=== PATIENT | female | born 1975 | race Caucasian/White ===

== ENCOUNTER 2017-08-12 11:43 | Inpatient (IN) | payer OTHER ==
[2017-08-12] MEDS ORDERED: TYLENOL PO PRN (12:15)
[2017-08-12 12:48] VITALS: BMI 15.1
[2017-08-12 13:07] LABS: BASOPHILS # (AUTO) 0.1 K/uL (0-0.2); BASOPHILS % (AUTO) 0.6 % (0.0-3.0); EOSINOPHILS # (AUTO) 0.1 K/ul (0.0-0.7); EOSINOPHILS % (AUTO) 0.4 % (0.0-7.0); HEMATOCRIT 36.9 % (37.0-47.0); HEMOGLOBIN 13.1 g/dl (12.0-16.0); IMMATURE GRANULOCYTE % (AUTO) 0.5 % (0.0-5.0); LYMPHOCYTES % (AUTO) 15.9 (10.0-50.0); MEAN CORPUSCULAR HEMOGLOBIN 30.7 pg (27.0-31.0); MEAN CORPUSCULAR HGB CONC 35.5 (31.8-35.4); MEAN CORPUSCULAR VOLUME 86.4 fl (81.0-99.0); MONOCYTES # (AUTO) 1.3 K/uL (0.4-2.0); MONOCYTES % (AUTO) 10.5 (0-10); NEUTROPHILS # (AUTO) 9.1 K/ul (2.0-6.9); NEUTROPHILS % (AUTO) 72.1; PLATELET COUNT 179 10^3/uL (140-440); RED BLOOD COUNT 4.27 10^6/ul (4.20-5.40); WHITE BLOOD COUNT 12.59 K/ul (4.6-10.2)
[2017-08-12 13:29] LABS: ALBUMIN 3.5 g/dL (3.4-5.0); ALBUMIN/GLOBULIN RATIO 0.85; ANION GAP 15.8; BILIRUBIN,TOTAL 0.32 mg/dL (0.00-1.20); BUN/CREATININE RATIO 16.98; CALCIUM 9.5 mg/dL (8.2-10.2); CREATININE 0.53 mg/dL (0.60-1.30); POTASSIUM 3.8 mmol/L (3.5-5.10); TOTAL PROTEIN 7.6 g/dL (6.4-8.2)
[2017-08-12] MEDS: SODIUM CHLORIDE 1,000 ML IV SCH (15:13)
[2017-08-12] MEDS: ROCEPHIN 1 GM in SODIUM CHLORIDE 50 ML IV SCH (15:14)
--- NOTE | 2017-08-12 15:14 | CT ---
EXAM: CT chest without contrast HISTORY: Coughing COMPARISON: 11/10/2014 TECHNIQUE: CT chest performed without intravenous contrast. coronal and sagittal reformatted images were obtained. FINDINGS: There is a left central venous catheter terminates in superior vena cava. Thoracic inlet unremarkable. Heart normal in size. No pericardial effusion. Aorta normal in caliber. Surgical cl ips in the epigastric region. Visualized portion upper abdomen demonstrates no acute abnormality. E valuation for lymphadenopathy limited without contrast. No lymphadenopathy identified. No acute abno rmalities of the bones. Rightward curvature of the spine. Central airway patent. Bilateral ground- glass infiltrates and left basilar consolidation. Small chronic high attenuation in the left pleural region that appears unchanged and likely represents pleural thickening with or without effusion. IMPRESSION: 1. Bilateral ground-glass infiltrates and left lower lobe consolidation, most consistent with pneumo laura. 2. Probable small left pleural thickening with or without effusion, unchanged.
[2017-08-12] MEDS: DIVALPROEX SODIUM 375 MG PO SCH (20:33)
[2017-08-12] MEDS: CARBAMAZEPINE 300 MG PO SCH ×22 (20:34)
[2017-08-13] MEDS: SODIUM CHLORIDE 1,000 ML IV SCH (03:58)
[2017-08-13] MEDS ORDERED: DECADRON 4 MG/ML SDV IM STA (08:27)
[2017-08-13] MEDS: DIVALPROEX SODIUM 250 MG PO SCH (09:33)
[2017-08-13] MEDS: CARBAMAZEPINE 300 MG PO SCH ×44 (09:33→20:17)
[2017-08-13] MEDS: CITALOPRAM HYDROBROMIDE 5 MG PO SCH ×22 (09:34)
[2017-08-13] MEDS: LOVENOX SUBCUT SCH (09:35)
[2017-08-13] MEDS: MINERAL OIL PO SCH (09:35)
[2017-08-13] MEDS: DUONEB NEB SCH ×3 (10:10→20:45)
[2017-08-13] MEDS: ROCEPHIN 1 GM in SODIUM CHLORIDE 50 ML IV SCH (13:51)
--- NOTE | 2017-08-13 13:52 | ED.PDOC ---
Procedures - IV/Art Line Insertion Location: right wrist Invasive Line/IV Catheter Gauge: 22 Number of Attempts: 1 Blood Return Positive: Yes Invasive Line/IV Flushes Without Difficulty: Yes Conscious Sedation - Pre-op Assessment Weight: 70 lb Surgical History: SHUNTS,HERNIA,CLUB FOOT,TENDON,HIP - Medical History Past Medical History: Seizures, Other Other History: CEREBRAL PALSY
[2017-08-13] MEDS: DIVALPROEX SODIUM 375 MG PO SCH (20:17)
[2017-08-14] MEDS: SODIUM CHLORIDE 1,000 ML IV SCH ×2 (01:19→14:23)
[2017-08-14] MEDS: DUONEB NEB SCH ×2 (05:19→10:14)
[2017-08-14] MEDS: CITALOPRAM HYDROBROMIDE 5 MG PO SCH ×22 (08:49)
[2017-08-14] MEDS: DIVALPROEX SODIUM 250 MG PO SCH (08:49)
[2017-08-14] MEDS: CARBAMAZEPINE 300 MG PO SCH ×22 (08:49)
[2017-08-14] MEDS: MINERAL OIL PO SCH (08:51)
[2017-08-14] MEDS: LOVENOX SUBCUT SCH (08:51)
[2017-08-14] MEDS: ROCEPHIN 1 GM in SODIUM CHLORIDE 50 ML IV SCH (08:53)
[2017-08-14 10:51] VITALS: BP 116/79; TEMP 98.3
--- NOTE | 2017-09-03 15:48 | PN ---
DATE OF SERVICE: 08/13/17 SUBJECTIVE: The patient was admitted with upper respiratory infection. Ct scan showed the bilateral pneumonia. The patient is feeling some better with no coughing and no fever or chills. REVIEW OF SYSTEMS: CONSTITUTIONAL: No fever, no chills. HEENT: Normal. ENDOCRINE: No weight gain, no weight loss. CVS: No angina symptoms. No CHF symptoms. No palpitations. No atypical chest pain for CAD. No shortness of breath. No PND, no orthopnea. RESPIRATORY: No cough, no hemoptysis. GI: No nausea, no vomiting. No abdominal pain. : No hematuria. No polyuria. MUSCULOSKELETAL:. No joint swelling. PSYCHIATRIC: Not anxious. No depression. No suicidal thoughts. No homicidal thoughts. SKIN: Intact. No rash. PHYSICAL EXAMINATION: V/S: Blood pressure 105/71, respiratory rate 20, heart rate 105, temperature 98.8, saturation 96. HEENT: Normocephalic, atraumatic. Mucosa dry. Pallor positive. No icterus. NECK: Supple. No JVD, no carotid bruit. No lymphadenopathy. LUNGS: Decreased, clear. No rales or rhonchi. HEART: S1, S2 normal. No S3. No murmur, gallop or regurgitation. ABDOMEN: Soft, nontender. Bowel sounds active. No rigidity. No rebound or guarding. No CVA tenderness. EXTREMITIES: No clubbing, cyanosis or pedal edema. MUSCULOSKELETAL: No joint swelling. Contractures in lower and upper extremities. NEUROLOGIC: Awake, alert, oriented times three. No focal deficit. LYMPHATIC: No lymph nodes palpable. SKIN: Intact. LABS: White count 12.5, hemoglobin 13.1, hematocrit 36.9, platelet count 179, sodium 136, potassium 3.8, chloride 100, bicarb 24, BUN 9, creatinine 0.53. ASSESSMENT: 1. BILATERAL COMMUNITY ACQUIRED PNEUMONIA 2. DEHYDRATION 3. HISTORY OF CEREBRAL PALSY 4. MULTIPLE LIMB CONTRACTURES PLAN: 1. Continue the IV fluids and Rocephin. 2. Breathing treatments. 3. 0.5 cc Decadron. TIME SPENT: More than 35 minutes today. MTDD
--- NOTE | 2017-09-05 11:53 | DS ---
DATE OF SERVICE: 08/14/17 FINAL DIAGNOSIS: 1. Dehydration 2. Community acquired pneumonia, bilateral 3. Cerebral palsy 4. Multiple contracture 5. History of seizure disorder which is stable 6. Cachexia 7. Chronic bed ridden patient DISCHARGE INSTRUCTIONS: Discharge the patient home. Continue home medications. MEDICATIONS AT DISCHARGE: Carbatrol Celexa Depakote NEW PRESCRIPTIONS: Augmentin 250mg/5ml Q 8 hours for 5 days. DIET INSTRUCTIONS: Soft and cardiac healthy diet ACTIVITY: Plenty of rest Increase lots of fluids SMOKING: Never smoker DISEASE SPECIFIC EDUCATION: Pneumonia and need for the pneumonia vaccination been discussed and verbalized understanding. Spirometry at the home suggested which can help the patient a lot HOSPITAL COURSE: Tarah Nazario who is a 42 year old female with history of cerebral palsy came to the office with cough, congestion and sore throat for 3-4 days which started on the Saturday. The patient has the tendency of getting pneumonia easily because of the patient's restrictive lung disease and body position. At that time the patient was found to be dehydrated and that time she was admitted to the hospital. WBC 12,000 with left shift. Creatinine 0.53, glucose 130, Valproic acid was negative. CT chest showed the bilateral pneumonia. The patient was given Rocephin, breathing treatments and steroids which did improve the patient a lot. By next two days the patient was active, alert and more verbal and became her normal self. At that time planning for the discharge was made and the patient's family and the patient was comfortable with going home and being discharged on the oral antibiotics Augmentin TIME SPENT: MORE THAN 55 MINUTES MTDD
== END 2017-08-14 14:10 | disposition home or self-care (01) | DRG 194 ==
LOC: MEDSURG B 11:43
PROVIDERS: ADMIT Emergency Medicine; ATTEND Emergency Medicine
DX: J18.9 Pneumonia, unspecified organism (principal); R64 Cachexia; J06.9 Acute upper respiratory infection, unspecified; G80.9 Cerebral palsy, unspecified; G40.909 Epilepsy, unspecified, not intractable, without status epilepticus; E86.0 Dehydration; Z74.01 Bed confinement status; Z79.899 Other long term (current) drug therapy
CPT/HCPCS: 36415; 80053; 80164; 85025; 94640; 97802

== ENCOUNTER 2017-08-12 12:29 | Outpatient (CLI) ==
[2016-02-03 18:10] VITALS: BMI 16.0
[2017-08-12 12:33] LABS: FLU INTERNAL QC INTERNAL QC VALID; RAPID FLU A NEGATIVE (NEGATIVE); RAPID FLU B NEGATIVE (NEGATIVE)
== END 2017-08-12 12:30 | disposition home or self-care (01) ==
LOC: LAB 12:29
PROVIDERS: ATTEND Emergency Medicine
DX: J06.9 Acute upper respiratory infection, unspecified (principal)
CPT/HCPCS: 87651; 87804; 87880

== ENCOUNTER 2017-08-21 10:38 | Inpatient (IN) ==
[2017-08-21 11:07] VITALS: BMI 15.2
--- NOTE | 2017-08-21 13:21 | CT ---
EXAM: CT head without contrast HISTORY: Headache COMPARISON: CT head 05/23/2013 and numerous priors TECHNIQUE: Serial axial images of the brain were obtained from the skull base to the vertex without IV contrast. FINDINGS: There is persistent elongated AP diameter of the skull. A left-sided [employer] shunt is unchange d with the tip in the right lateral ventricle. Encephalomalacia of the occipital and temporal lobes are present. There is no intracranial hemorrhage identified. There is no significant change in comp arison to previous study. The of the occipital and temporal lobes are unchanged. Mild low attenuati on in the periventricular white matter is present.No midline shift or mass is identified. The paran denise sinuses and mastoid air cells are clear. The osseous calvarium is intact. IMPRESSION: 1. No acute intracranial abnormality or hemorrhage. There is no significant change from prior. If further evaluation is indicated, MRI may be obtained. 2. Unchanged bilateral posterior encephalomalacia with unchanged indwelling ventricular peritoneal s [place]. The
--- NOTE | 2017-08-21 13:30 | CT ---
EXAM: CT ABDOMEN AND PELVIS HISTORY: Abdominal pain, gastroenteritis TECHNIQUE: CT abdomen and pelvis without intravenous contrast. Images were reconstructed using 5 mm section thickness. Reformations were prepared. COMPARISON: 11/10/2014 FINDINGS: Diagnostic limitations exist without including contrast enhanced images. No focal hepatic or splenic lesions identified. Gallbladder and pancreas appear normal. No adrenal mass is seen. Kidneys and visualized ureters appear normal. Normal abdominal aorta. Postop changes at the gastroesophageal junction are identified. There is a small hiatal hernia which is unchanged. Gastric fluid is seen within the hiatal hernia. There is moderate distension of the stomach with air and semisolid fluid. Proximal bowel is distended with fluid. The distal small laina l has relatively normal caliber although was also fluid filled. There are scattered air-fluid levels within the small bowel. Suture line near the cecum probably indicating previous appendectomy. The colon has normal caliber with no excessive fecal retention. No uterus is identified. Urinary bladde r is decompressed. There is no ascites. No ventral abdominal wall hernia. The bones are demineralized. Postop changes of the upper left fem ur. 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 Lung bases reveal consolidations, especially post eriorly. No pneumoperitoneum seen. IMPRESSION: Postop changes gastroesophageal junction with residual hiatal hernia. There is moderate distension of the stomach with fluid and air. Gastric fluid is seen within the hiatal hernia. Smal l bowel is distended with fluid at its proximal aspect. Colon caliber is normal. Consider at least partial small-bowel obstruction. Consolidations in the lung bases possibly from aspiration pneumonia.
[2017-08-21 16:01] LABS: BASOPHILS % (AUTO) 0.4 % (0.0-3.0); EOSINOPHILS % (AUTO) 0.1 % (0.0-7.0); HEMATOCRIT 40.6 % (37.0-47.0); HEMOGLOBIN 14.3 g/dl (12.0-16.0); IMMATURE GRANULOCYTE % (AUTO) 0.9 % (0.0-5.0); LYMPHOCYTES # (AUTO) 0.8 K/uL (0.60-3.4); LYMPHOCYTES % (AUTO) 8.1 (10.0-50.0); MEAN CORPUSCULAR HEMOGLOBIN 30.6 pg (27.0-31.0); MEAN CORPUSCULAR HGB CONC 35.2 (31.8-35.4); MEAN CORPUSCULAR VOLUME 86.9 fl (81.0-99.0); MONOCYTES # (AUTO) 1.1 K/uL (0.4-2.0); MONOCYTES % (AUTO) 10.7 (0-10); NEUTROPHILS # (AUTO) 8.1 K/ul (2.0-6.9); NEUTROPHILS % (AUTO) 79.8; PLATELET COUNT 218 10^3/uL (140-440); RED BLOOD COUNT 4.67 10^6/ul (4.20-5.40); WHITE BLOOD COUNT 10.17 K/ul (4.6-10.2)
[2017-08-21] MEDS: SODIUM CHLORIDE 1,000 ML IV SCH (16:11)
[2017-08-21 16:20] LABS: ALBUMIN 3.3 g/dL (3.4-5.0); ALBUMIN/GLOBULIN RATIO 0.79; ANION GAP 16.7; BILIRUBIN,TOTAL 0.24 mg/dL (0.00-1.20); BUN/CREATININE RATIO 29.09; CALCIUM 9.1 mg/dL (8.2-10.2); CREATININE 0.55 mg/dL (0.60-1.30); POTASSIUM 3.7 mmol/L (3.5-5.10); TOTAL PROTEIN 7.5 g/dL (6.4-8.2)
[2017-08-21 16:42] LABS: CREATINE KINASE 30 U/L
[2017-08-21] MEDS ORDERED: ROCEPHIN 1 GM in SODIUM CHLORIDE 50 ML IV SCH (20:30)
[2017-08-21] MEDS ORDERED: CARBAMAZEPINE 300 MG PO SCH ×22 (21:00)
[2017-08-21] MEDS ORDERED: ROCEPHIN ONE (21:36)
[2017-08-21] MEDS ORDERED: FLAGYL 500 MG/100 ML 100 ML IV ONE (21:36)
[2017-08-21] MEDS: DIVALPROEX SODIUM 375 MG PO SCH (21:49)
[2017-08-21] MEDS: FLAGYL 500 MG/100 ML 500 MG in PREMIX 100 ML NS 1 BAG IV SCH (23:20)
[2017-08-22] MEDS ORDERED: DUONEB NEB ONE ×2 (01:37→05:10)
[2017-08-22] MEDS: DUONEB NEB SCH ×4 (01:37→16:38)
[2017-08-22] MEDS ORDERED: FLAGYL 500 MG/100 ML 100 ML IV ONE (03:55)
[2017-08-22] MEDS: FLAGYL 500 MG/100 ML 500 MG in PREMIX 100 ML NS 1 BAG IV SCH ×2 (05:05→13:08)
[2017-08-22] MEDS: SODIUM CHLORIDE 1,000 ML IV SCH ×2 (06:23→22:09)
[2017-08-22] MEDS ORDERED: CARBAMAZEPINE 300 MG PO SCH ×22 (09:00)
[2017-08-22] MEDS: MINERAL OIL PO SCH (09:00)
[2017-08-22] MEDS: CITALOPRAM HYDROBROMIDE 5 MG PO SCH ×22 (09:41)
[2017-08-22] MEDS: DIVALPROEX SODIUM 250 MG PO SCH (09:42)
[2017-08-22] MEDS: DIVALPROEX SODIUM 375 MG PO SCH (20:00)
[2017-08-22] MEDS ORDERED: FLAGYL ONE (20:42)
[2017-08-22] MEDS: FLAGYL PO SCH (20:49)
[2017-08-22] MEDS ORDERED: ROCEPHIN 1 GM in SODIUM CHLORIDE 50 ML IV SCH (21:00)
[2017-08-22] MEDS ORDERED: TEGRETOL PO SCH (21:00)
[2017-08-23] MEDS: DUONEB NEB SCH ×5 (00:50→22:29)
[2017-08-23] MEDS ORDERED: DUONEB NEB ONE (00:50)
[2017-08-23] MEDS: FLAGYL PO SCH (04:47)
[2017-08-23 06:41] LABS: BASOPHILS # (AUTO) 0.1 K/uL (0-0.2); BASOPHILS % (AUTO) 0.8 % (0.0-3.0); EOSINOPHILS # (AUTO) 0.1 K/ul (0.0-0.7); EOSINOPHILS % (AUTO) 0.8 % (0.0-7.0); HEMATOCRIT 32.1 % (37.0-47.0); HEMOGLOBIN 11.3 g/dl (12.0-16.0); IMMATURE GRANULOCYTE % (AUTO) 1.5 % (0.0-5.0); LYMPHOCYTES # (AUTO) 2.2 K/uL (0.60-3.4); LYMPHOCYTES % (AUTO) 32.8 (10.0-50.0); MEAN CORPUSCULAR HEMOGLOBIN 30.3 pg (27.0-31.0); MEAN CORPUSCULAR HGB CONC 35.2 (31.8-35.4); MEAN CORPUSCULAR VOLUME 86.1 fl (81.0-99.0); MONOCYTES # (AUTO) 0.9 K/uL (0.4-2.0); NEUTROPHILS # (AUTO) 3.3 K/ul (2.0-6.9); NEUTROPHILS % (AUTO) 50.1; RED BLOOD COUNT 3.73 10^6/ul (4.20-5.40); WHITE BLOOD COUNT 6.55 K/ul (4.6-10.2)
[2017-08-23 07:00] LABS: PLATELET COUNT 129 10^3/uL (140-440)
[2017-08-23 07:02] LABS: ALBUMIN 2.8 g/dL (3.4-5.0); ALBUMIN/GLOBULIN RATIO 0.88; ANION GAP 14.8; BILIRUBIN,TOTAL 0.16 mg/dL (0.00-1.20); BUN/CREATININE RATIO 8.51; CALCIUM 8.6 mg/dL (8.2-10.2); CREATININE 0.47 mg/dL (0.60-1.30); POTASSIUM 3.8 mmol/L (3.5-5.10)
--- NOTE | 2017-08-23 09:39 | ED.PDOC ---
Procedures - IV/Art Line Insertion Location: rt lower leg Type of Line: Peripheral IV Invasive Line/IV Catheter Gauge: 24 Number of Attempts: 1 Blood Return Positive: Yes Invasive Line/IV Flushes Without Difficulty: Yes Conscious Sedation - Pre-op Assessment Weight: 70 lb 3.2 oz Surgical History: SHUNTS,HERNIA,CLUB FOOT,TENDON,HIP - Medical History Past Medical History: Seizures, Other Other History: CEREBRAL PALSY
[2017-08-23] MEDS: MINERAL OIL PO SCH (09:56)
[2017-08-23] MEDS: CARBAMAZEPINE 300 MG PO SCH ×44 (09:57→20:38)
[2017-08-23] MEDS: DIVALPROEX SODIUM 250 MG PO SCH (09:57)
[2017-08-23] MEDS: CITALOPRAM HYDROBROMIDE 5 MG PO SCH ×22 (09:57)
[2017-08-23] MEDS: SODIUM CHLORIDE 1,000 ML IV SCH ×2 (10:55→17:15)
[2017-08-23] MEDS: ROCEPHIN 1 GM in SODIUM CHLORIDE 50 ML IV SCH (10:57)
[2017-08-23] MEDS: PROTONIX IV IVP SCH ×2 (13:23→14:04)
[2017-08-23] MEDS: FLAGYL 500 MG/100 ML 500 MG in PREMIX 100 ML NS 1 BAG IV SCH ×2 (13:23→20:37)
[2017-08-23] MEDS ORDERED: CARAFATE PO SCH (17:00)
[2017-08-23] MEDS: ZANTAC SYRUP PO SCH (17:07)
[2017-08-23] MEDS: DIVALPROEX SODIUM 375 MG PO SCH (20:38)
[2017-08-24] MEDS: FLAGYL 500 MG/100 ML 500 MG in PREMIX 100 ML NS 1 BAG IV SCH ×3 (04:33→21:34)
[2017-08-24] MEDS: DUONEB NEB SCH ×4 (05:30→22:10)
[2017-08-24] MEDS: ZANTAC SYRUP PO SCH ×2 (05:31→16:50)
[2017-08-24] MEDS: SODIUM CHLORIDE 1,000 ML IV SCH (09:02)
[2017-08-24] MEDS: MINERAL OIL PO SCH (09:02)
[2017-08-24] MEDS: CITALOPRAM HYDROBROMIDE 5 MG PO SCH ×22 (09:06)
[2017-08-24] MEDS: CARBAMAZEPINE 300 MG PO SCH ×44 (09:06→21:39)
[2017-08-24] MEDS: DIVALPROEX SODIUM 250 MG PO SCH (09:07)
[2017-08-24] MEDS: ROCEPHIN 1 GM in SODIUM CHLORIDE 50 ML IV SCH (10:09)
[2017-08-24] MEDS: DIVALPROEX SODIUM 375 MG PO SCH (21:38)
[2017-08-25] MEDS: SODIUM CHLORIDE 1,000 ML IV SCH ×2 (02:20→17:44)
[2017-08-25 05:21] LABS: BASOPHILS % (AUTO) 0.7 % (0.0-3.0); EOSINOPHILS # (AUTO) 0.1 K/ul (0.0-0.7); EOSINOPHILS % (AUTO) 1.6 % (0.0-7.0); HEMATOCRIT 31.9 % (37.0-47.0); HEMOGLOBIN 10.6 g/dl (12.0-16.0); IMMATURE GRANULOCYTE % (AUTO) 0.5 % (0.0-5.0); LYMPHOCYTES # (AUTO) 2.4 K/uL (0.60-3.4); LYMPHOCYTES % (AUTO) 43.9 (10.0-50.0); MEAN CORPUSCULAR HEMOGLOBIN 29.9 pg (27.0-31.0); MEAN CORPUSCULAR HGB CONC 33.2 (31.8-35.4); MEAN CORPUSCULAR VOLUME 90.1 fl (81.0-99.0); MONOCYTES # (AUTO) 0.6 K/uL (0.4-2.0); MONOCYTES % (AUTO) 10.2 (0-10); NEUTROPHILS # (AUTO) 2.4 K/ul (2.0-6.9); NEUTROPHILS % (AUTO) 43.1; PLATELET COUNT 151 10^3/uL (140-440); RED BLOOD COUNT 3.54 10^6/ul (4.20-5.40); WHITE BLOOD COUNT 5.47 K/ul (4.6-10.2)
[2017-08-25] MEDS: DUONEB NEB SCH ×4 (05:28→21:40)
[2017-08-25 05:56] LABS: ALANINE AMINOTRANSFERASE 10 U/L (12-78); ALBUMIN 2.7 g/dL (3.4-5.0); ALBUMIN/GLOBULIN RATIO 1.04; ALKALINE PHOSPHATASE 39 U/L (42-98); ANION GAP 11.5; ASPARTATE AMINO TRANSFERASE 19 U/L (15-37); BILIRUBIN,TOTAL 0.27 mg/dL (0.00-1.20); BLOOD UREA NITROGEN < 2 mg/dL (7-18); BUN/CREATININE RATIO 4.34; CALCIUM 8.3 mg/dL (8.2-10.2); CARBON DIOXIDE 24 mmol/L (21-32); CHLORIDE 109 mmol/L (98-107); CREATININE 0.46 mg/dL (0.60-1.30); GLUCOSE 97 mg/dL (70-110); POTASSIUM 3.5 mmol/L (3.5-5.10); SODIUM 141 mmol/L (136-145); TOTAL PROTEIN 5.3 g/dL (6.4-8.2)
[2017-08-25] MEDS: FLAGYL 500 MG/100 ML 500 MG in PREMIX 100 ML NS 1 BAG IV SCH ×3 (06:04→21:32)
[2017-08-25] MEDS: ZANTAC SYRUP PO SCH ×2 (06:05→16:23)
[2017-08-25] MEDS: CITALOPRAM HYDROBROMIDE 5 MG PO SCH ×22 (08:33)
[2017-08-25] MEDS: MINERAL OIL PO SCH (08:33)
[2017-08-25] MEDS: DIVALPROEX SODIUM 250 MG PO SCH (08:33)
[2017-08-25] MEDS: CARBAMAZEPINE 300 MG PO SCH ×44 (08:33→21:33)
[2017-08-25] MEDS: ROCEPHIN 1 GM in SODIUM CHLORIDE 50 ML IV SCH (10:17)
--- NOTE | 2017-08-25 13:32 | DI ---
EXAMINATION: AP supine view of the abdomen. HISTORY: Small bowel obstruction COMPARISON: CT abdomen pelvis from 08/21/2017 FINDINGS: No bowel dilatation, pathologic radio-opacities, free air, or portal venous gas are detect ed. No acute osseous abnormalities. There are no suspicious masses or calcifications. There is a director information roxann appearing subluxation of the left hip postoperative changes. IMPRESSION: No evidence for obstruction or ileus. Nonspecific bowel gas pattern is noted.
[2017-08-25] MEDS: DIVALPROEX SODIUM 375 MG PO SCH (21:32)
[2017-08-26] MEDS: DUONEB NEB SCH ×4 (05:42→19:33)
[2017-08-26] MEDS: FLAGYL 500 MG/100 ML 500 MG in PREMIX 100 ML NS 1 BAG IV SCH ×3 (06:05→20:26)
[2017-08-26] MEDS: ZANTAC SYRUP PO SCH ×2 (06:05→16:55)
[2017-08-26] MEDS: CARBAMAZEPINE 300 MG PO SCH ×44 (09:05→20:28)
[2017-08-26] MEDS: ROCEPHIN 1 GM in SODIUM CHLORIDE 50 ML IV SCH (09:05)
[2017-08-26] MEDS: CITALOPRAM HYDROBROMIDE 5 MG PO SCH ×22 (09:05)
[2017-08-26] MEDS: MINERAL OIL PO SCH (09:05)
[2017-08-26] MEDS: DIVALPROEX SODIUM 250 MG PO SCH (09:05)
[2017-08-26] MEDS: SODIUM CHLORIDE 1,000 ML IV SCH ×2 (12:01→15:17)
--- NOTE | 2017-08-26 13:15 | PN ---
DATE OF SERVICE: 08/25/17 SUBJECTIVE: The patient was admitted with small bowel obstruction and dehydration. The patient is having no diarrhea. Abdominal pain is better. The patient's family is in the room worried about the patient's condition. REVIEW OF SYSTEMS: CONSTITUTIONAL: No fever, no chills. HEENT: Normal. ENDOCRINE: No weight gain, no weight loss. CVS: No angina symptoms. No CHF symptoms. No palpitations. No atypical chest pain for CAD. No shortness of breath. No PND, no orthopnea. RESPIRATORY: No cough, no hemoptysis. GI: No nausea, no vomiting. No abdominal pain. : No hematuria. No polyuria. MUSCULOSKELETAL:. No joint swelling. PSYCHIATRIC: Not anxious. No depression. No suicidal thoughts. No homicidal thoughts. SKIN: Intact. No rash. PHYSICAL EXAMINATION: V/S: Blood pressure 124/82, respiratory rate 20, heart rate 97, saturation 92 and temperature 98.1. HEENT: Normocephalic, atraumatic. Mucosa dry. Pallor sick looking girl. NECK: Supple. No JVD, no carotid bruit. No lymphadenopathy. LUNGS: Clear to auscultation. No rales or rhonchi. HEART: S1, S2 normal. No S3. No murmur, gallop or regurgitation. ABDOMEN: Soft, epigastric discomfort present. Bowel sounds hyperactive. No rigidity. No rebound or guarding. No CVA tenderness. EXTREMITIES: No clubbing, cyanosis or pedal edema. MUSCULOSKELETAL: No joint swelling. Cachetic. Multiple muscular extremity contractures. NEUROLOGIC: Awake, alert, oriented times three. No focal deficit. LYMPHATIC: No lymph nodes palpable. SKIN: Intact. LABS: Hgb 10.6, hct 31.9, plt count 151, sodium 141, potassium 3.5, chloride 109, bicarb 24, BUN less than 2, creatinine 0.46. ASSESSMENT: 1. Small bowel obstruction 2. Dehydration 3. Cerebral palsy 4. Multiple extremity contractures. PLAN: 1. KUB just started and I saw the film myself and it shows gas pattern 2. Continue the Zantac 3. IV fluids 4. Rocephin 5. Flagyl TIME SPENT: More than 35 minutes MTDD
--- NOTE | 2017-08-26 14:35 | PN ---
DATE OF SERVICE: 08/24/17 SUBJECTIVE: The patient was admitted dehydration, aspiration pneumonia and small bowel obstruction. The patient been eating fine. Had about 3-4 bowel movements. Still complains about the epigastric tenderness. REVIEW OF SYSTEMS: CONSTITUTIONAL: No fever, no chills. HEENT: Normal. ENDOCRINE: No weight gain, no weight loss. CVS: No angina symptoms. No CHF symptoms. No palpitations. No atypical chest pain for CAD. No shortness of breath. No PND, no orthopnea. RESPIRATORY: No cough, no hemoptysis. GI: No nausea, no vomiting. No abdominal pain. : No hematuria. No polyuria. MUSCULOSKELETAL:. No joint swelling. PSYCHIATRIC: Not anxious. No depression. No suicidal thoughts. No homicidal thoughts. SKIN: Intact. No rash. PHYSICAL EXAMINATION: V/S: Blood pressure 121/76, respiratory rate 18, heart rate 86, temperature 98.6 with saturation 98 on room air. HEENT: Normocephalic, atraumatic.Cachetic lady laying in a bed. Not in any distress. Mucosa dry. Pallor positive and no icterus. NECK: Supple. No JVD, no carotid bruit. No lymphadenopathy. LUNGS: Decreased entry some crackles. Clear to auscultation. No rales or rhonchi. HEART: S1, S2 normal. No S3. No murmur, gallop or regurgitation. ABDOMEN: Soft, epigastric tenderness is present. Bowel sounds active. No rigidity. No rebound or guarding. No CVA tenderness. EXTREMITIES: No clubbing, cyanosis or pedal edema. Multiple contracture in the extremities. MUSCULOSKELETAL: No joint swelling. NEUROLOGIC: Awake, alert, oriented times three. No focal deficit. LYMPHATIC: No lymph nodes palpable. SKIN: Intact. LABS: WBC 6.55, hgb 11.3, hct 32.1, plt count 129, sodium 140, potassium 3.8, chloride 110, bicarb 20, BUN 4, creatinine 0.47. ASSESSMENT: 1. Aspiration pneumonia 2. Small bowel obstruction 3. Cerebral palsy 4. Anemia 5. GERD 6. History of seizure disorder PLAN: 1. Continue home medication 2. Continue Carafate and Zantac 3. Rocephin and Flagyl 4. Breathing treatments Will follow the patient in daily rounds. TIME SPENT: More than 35 minutes MTDD
--- NOTE | 2017-08-26 15:43 | PN ---
DATE OF SERVICE: 08/23/17 SUBJECTIVE: The patient was admitted with small bowel obstruction, aspiration pneumonia. The patient ran out of the IV line yesterday and finally it was caught by noon time today. Started on the IV fluids and antibiotics today. Was weak and tired in the morning not much active. REVIEW OF SYSTEMS: CONSTITUTIONAL: No fever, no chills. HEENT: Normal. ENDOCRINE: No weight gain, no weight loss. CVS: No angina symptoms. No CHF symptoms. No palpitations. No atypical chest pain for CAD. No shortness of breath. No PND, no orthopnea. RESPIRATORY: No cough, no hemoptysis. GI: No nausea, no vomiting. No abdominal pain. : No hematuria. No polyuria. MUSCULOSKELETAL:. No joint swelling. PSYCHIATRIC: Not anxious. No depression. No suicidal thoughts. No homicidal thoughts. SKIN: Intact. No rash. PHYSICAL EXAMINATION: V/S: Blood pressure 107/70, respiratory rate 20, heart rate 105, temperature 97.5 with saturation 98 on the room air. HEENT: Normocephalic, atraumatic. Mucosa dry. Pallor positive. No icterus. NECK: Supple. No JVD, no carotid bruit. No lymphadenopathy. LUNGS: Decreased and basilar crackles. Clear to auscultation. No rales or rhonchi. HEART: S1, S2 normal. No S3. No murmur, gallop or regurgitation. ABDOMEN: Soft, nontender. Bowel sounds hyperactive. No rigidity. No rebound or guarding. No CVA tenderness. EXTREMITIES: No clubbing, cyanosis or pedal edema. Multiple extremity contractures. MUSCULOSKELETAL: No joint swelling. NEUROLOGIC: Awake, alert, oriented times three. No focal deficit. LYMPHATIC: No lymph nodes palpable. SKIN: Intact. LABS: Sodium 140, potassium 3.8, chloride 109, bicarb 20, BUN 4, creatinine 0.47, WBC 6.55, hgb 11.3, hct 32.1, plt count 129. ASSESSMENT: 1. Aspiration pneumonia 2. Small bowel obstruction 3. History of cerebral palsy 4. Multiple joint contractures 5. Status post ventriculoperitoneal shunt PLAN: 1. Continue the IV fluids, Rocephin and Flagyl TIME SPENT: More than 35 minutes MTDD
[2017-08-26] MEDS: DIVALPROEX SODIUM 375 MG PO SCH (20:27)
[2017-08-27] MEDS: FLAGYL 500 MG/100 ML 500 MG in PREMIX 100 ML NS 1 BAG IV SCH ×3 (04:32→20:41)
[2017-08-27] MEDS: SODIUM CHLORIDE 1,000 ML IV SCH ×2 (04:32→20:41)
[2017-08-27] MEDS: DUONEB NEB SCH ×4 (05:00→21:18)
[2017-08-27] MEDS: ZANTAC SYRUP PO SCH ×2 (05:35→16:58)
[2017-08-27] MEDS: MINERAL OIL PO SCH (08:37)
[2017-08-27] MEDS: CARBAMAZEPINE 300 MG PO SCH ×44 (08:37→20:42)
[2017-08-27] MEDS: CITALOPRAM HYDROBROMIDE 5 MG PO SCH ×22 (08:37)
[2017-08-27] MEDS: DIVALPROEX SODIUM 250 MG PO SCH (08:38)
[2017-08-27] MEDS: ROCEPHIN 1 GM in SODIUM CHLORIDE 50 ML IV SCH (08:38)
--- NOTE | 2017-08-27 14:57 | PN ---
DATE OF SERVICE: 08/26/17 SUBJECTIVE: Admitted with small bowel obstruction and dehydration. Now patient has been having diarrhea; yesterday 3 to 4 bowel movements, this morning 2. She feels somewhat dehydrated otherwise no fever or chills. REVIEW OF SYSTEMS: CONSTITUTIONAL: No fever, no chills. HEENT: Normal. ENDOCRINE: No weight gain, no weight loss. CVS: No angina symptoms. No CHF symptoms. No palpitations. No atypical chest pain for CAD. No shortness of breath. No PND, no orthopnea. RESPIRATORY: No cough, no hemoptysis. GI: Diarrhea. No nausea, no vomiting. No abdominal pain. : No hematuria. No polyuria. MUSCULOSKELETAL:. No joint swelling. PSYCHIATRIC: Not anxious. No depression. No suicidal thoughts. No homicidal thoughts. SKIN: Intact. No rash. PHYSICAL EXAMINATION: V/S: BP 113/69, respiratory rate 20, heart rate 104, temperature 98.6, saturation 90. HEENT: Normocephalic, atraumatic. Mucosa dry. Pallor positive. No icterus. NECK: Supple. No JVD, no carotid bruit. No lymphadenopathy. LUNGS: Clear to auscultation. No rales or rhonchi. HEART: S1, S2 normal. No S3. No murmur, gallop or regurgitation. ABDOMEN: Soft, nontender. Bowel sounds active. No rigidity. No rebound or guarding. No CVA tenderness. EXTREMITIES: No clubbing, cyanosis or pedal edema. MUSCULOSKELETAL: Multiple contractures are present. NEUROLOGIC: Awake, alert, oriented times three. No focal deficit. LYMPHATIC: No lymph nodes palpable. SKIN: Intact. LABS: White count 5.47, hemoglobin 10.6, hematocrit 31.9, platelet count 151. Sodium 141, potassium 3.5, chloride 109, bicarb 24, BUN 2, creatinine 0.46, glucose 97. ASSESSMENT: 1. DEHYDRATION 2. SMALL BOWEL OBSTRUCTION PER CT SCAN 3. DIARRHEA NOW 4. RECENT ASPIRATION PNEUMONIA 5. VENTRICULOPERITONEAL SHUNT 6. CEREBRAL PALSY 7. CONTRACTURES OF THE EXTREMITIES PLAN: 1. Continue Rocephin, Flagyl, Duonebs and IV fluids 2. Will follow with the patient in daily rounds TIME SPENT: More than 30 minutes MTDD
[2017-08-27] MEDS: DIVALPROEX SODIUM 375 MG PO SCH (20:42)
[2017-08-28] MEDS: FLAGYL 500 MG/100 ML 500 MG in PREMIX 100 ML NS 1 BAG IV SCH (04:27)
[2017-08-28] MEDS: DUONEB NEB SCH ×2 (05:33→10:11)
[2017-08-28] MEDS: ZANTAC SYRUP PO SCH (05:58)
[2017-08-28 06:17] VITALS: TEMP 97.5
[2017-08-28] MEDS: MINERAL OIL PO SCH (08:28)
[2017-08-28] MEDS: CARBAMAZEPINE 300 MG PO SCH ×22 (08:28)
[2017-08-28] MEDS: CITALOPRAM HYDROBROMIDE 5 MG PO SCH ×22 (08:28)
[2017-08-28] MEDS: DIVALPROEX SODIUM 250 MG PO SCH (08:29)
[2017-08-28] MEDS: ROCEPHIN 1 GM in SODIUM CHLORIDE 50 ML IV SCH (08:50)
[2017-08-28 10:48] VITALS: BP 129/86
--- NOTE | 2017-09-02 12:48 | DS ---
DATE OF SERVICE: 08/28/17 FINAL DIAGNOSIS: 1. SMALL BOWEL OBSTRUCTION PER CT SCAN 2. ASPIRATION PNEUMONIA 3. DEHYDRATION 4. GERD 5. HISTORY OF CEREBRAL PALSY WITH VENTRICULOPERITONEAL SHUNT 6. CACHEXIA 7. MULTIPLE EXTREMITY CONTRACTURES DISCHARGE INSTRUCTIONS: Followup appointment: Dr. Patterson at [facility] on 08/30/17 at 3 p.m. MEDICATIONS AT DISCHARGE: Citalopram Carbatrol Citalopram Depakote Mineral Oil NEW PRESCRIPTIONS: Keflex suspension 250 mg/5 mL (1 TSP) take twice daily for 7 days (antibiotic) Prescription called to [facility] 2 DIET INSTRUCTIONS: As much as tolerated. ACTIVITY: Up to chair as tolerated. Turn frequently. Incontinent care as needed (by parent) SMOKING: Nonsmoker DISEASE SPECIFIC EDUCATION: Dehydration Aspiration The above discussed and verbalized understanding. The patient was provided with peak flow meter for breathing efficiency. HOSPITAL COURSE: This is a patient with cerebral palsy and multiple extremity contracture. The patient was recently in the hospital with upper respiratory infection and pneumonia. She went home, started doing fine but started having diarrhea and vomiting. There was a question of aspiration. When the patient was seen in the office, heart rate was almost 120 to 130s, tachycardia. Given her condition, the patient was admitted to the hospital. CT of the chest was done which showed aspiration pneumonia. CT of abdomen and pelvis showed small bowel obstruction. At that time, the patient was kept NPO. Clear liquids were given. IV fluids were given. Breathing treatments and Duonebs were given. With that treatment, the patient started having bowel movements, started having diarrhea. At that time, clear liquids were advanced to thick liquids and gradually the regular. Meanwhile, breathing was getting better. IV access was difficult to so we called the CONSULTING NURSE to help us with IV access. When Zantac was started, the patient' s stomach pain was a lot better. No more coughing, no fever, no chills. Gradually, the heart rate became normal. Breathing was better. The patient started tolerating food fine. As the patient developed diarrhea, the patient was monitored more. As the patient ended up with dehydration again with diarrhea but gradually the diarrhea resolved and the patient is discharged home. TIME SPENT: MORE THAN 55 to 60 MINUTES MTDD
--- NOTE | 2017-09-02 12:59 | PN ---
DATE OF SERVICE: 08/28/17 SUBJECTIVE: The patient was admitted with small bowel obstruction and dehydration. The patient been having diarrhea and feeling a lot better. Able to tolerate the food. REVIEW OF SYSTEMS: CONSTITUTIONAL: No fever, no chills. HEENT: Normal. ENDOCRINE: No weight gain, no weight loss. CVS: No angina symptoms. No CHF symptoms. No palpitations. No atypical chest pain for CAD. No shortness of breath. No PND, no orthopnea. RESPIRATORY: No cough, no hemoptysis. GI: No nausea, no vomiting. No abdominal pain. : No hematuria. No polyuria. MUSCULOSKELETAL:. No joint swelling. PSYCHIATRIC: Not anxious. No depression. No suicidal thoughts. No homicidal thoughts. SKIN: Intact. No rash. PHYSICAL EXAMINATION: V/S: Blood pressure 130/89, respiratory rate 16, heart rate 94, temperature 98.2 with saturation 97. GENERAL: Cachetic patient laying in the bed. HEENT: Normocephalic, atraumatic. Mucosa dry. NECK: Supple. No JVD, no carotid bruit. No lymphadenopathy. LUNGS: Decreased and clear to auscultation. No rales or rhonchi. HEART: S1, S2 normal. No S3. No murmur, gallop or regurgitation. ABDOMEN: Soft, nontender. Bowel sounds active. No rigidity. No rebound or guarding. No CVA tenderness. EXTREMITIES: No clubbing, cyanosis or pedal edema. Multiple contractors in the extremities MUSCULOSKELETAL: No joint swelling. NEUROLOGIC: Awake, alert, oriented times three. No focal deficit. LYMPHATIC: No lymph nodes palpable. SKIN: Intact. LABS: WBC 5.47, hgb 10.6, hct 31.9, plt count 151, sodium 141, potassium 3.5, chloride 109, bicarb 24, BUN less than 2, creatinine 0.46. ASSESSMENT: 1. Small bowel obstruction 2. Dehydration 3. Aspiration pneumonia 4. Cerebral palsy status post ventriculoperitoneal shunt 5. History of seizure disorder PLAN: 1. Regular diet 2. Cut down on IV fluids 3. Continue Zantac Will follow the patient in daily rounds. TIME SPENT: More than 35 minutes MTDD
--- NOTE | 2017-09-02 13:21 | PN ---
DATE OF SERVICE: 08/27/17 SUBJECTIVE: The patient was admitted with small bowel obstruction and dehydration. Bowel movements are better now. No more diarrhea. She is still on the clear liquids. No abdominal pains. REVIEW OF SYSTEMS: CONSTITUTIONAL: No fever, no chills. HEENT: Normal. ENDOCRINE: No weight gain, no weight loss. CVS: No angina symptoms. No CHF symptoms. No palpitations. No atypical chest pain for CAD. No shortness of breath. No PND, no orthopnea. RESPIRATORY: No cough, no hemoptysis. GI: No nausea, no vomiting. No abdominal pain. : No hematuria. No polyuria. MUSCULOSKELETAL:. No joint swelling. PSYCHIATRIC: Not anxious. No depression. No suicidal thoughts. No homicidal thoughts. SKIN: Intact. No rash. PHYSICAL EXAMINATION: V/S: Blood pressure 110/62, respiratory rate 16, heart rate 86, temperature 98.1 with saturation 96%. HEENT: Normocephalic, atraumatic. Mucosa dry. Pallor positive. No icterus. NECK: Supple. No JVD, no carotid bruit. No lymphadenopathy. LUNGS: Decreased and basilar crackles. No rales or rhonchi. HEART: S1, S2 normal. No S3. No murmur, gallop or regurgitation. ABDOMEN: Soft, Epigastric discomfort. Bowel sounds active. No rigidity. No rebound or guarding. No CVA tenderness. EXTREMITIES: No clubbing, cyanosis or pedal edema. Multiple extremity contractors are present. MUSCULOSKELETAL: No joint swelling. NEUROLOGIC: Awake, alert, oriented times three. No focal deficit. LYMPHATIC: No lymph nodes palpable. SKIN: Intact. LABS: WBC 5.47, hgb 10.6, hct 31.9, plt count 151, sodium 141, potassium 3.5, chloride 109, bicarb 24, BUN less than 2, creatinine 0.46. ASSESSMENT: 1. Status post small bowel obstruction 2. Aspiration pneumonia 3. Dehydration 4. Status post sinus tachycardia 5. History of seizure disorder 6. CVA 7. Status post ventriculoperitoneal shunt 8. Multiple extremity contractors PLAN: 1. Continue IV fluids 2. Increase diet to the regular diet 3. Breathing treatments Will follow the patient in daily rounds. TIME SPENT: More than 35 minutes MTDD
== END 2017-08-28 13:05 | disposition home or self-care (01) | DRG 388 ==
LOC: MEDSURG A 10:38
PROVIDERS: ADMIT Emergency Medicine; ATTEND Emergency Medicine
DX: K56.699 Other intestinal obstruction unspecified as to partial versus complete obstruction (principal); J69.0 Pneumonitis due to inhalation of food and vomit; R64 Cachexia; R00.0 Tachycardia, unspecified; G80.9 Cerebral palsy, unspecified; K21.9 Gastro-esophageal reflux disease without esophagitis; G40.909 Epilepsy, unspecified, not intractable, without status epilepticus; R10.816 Epigastric abdominal tenderness; R19.7 Diarrhea, unspecified; E86.0 Dehydration; D64.9 Anemia, unspecified; Z98.2 Presence of cerebrospinal fluid drainage device; Z86.73 Personal history of transient ischemic attack (TIA), and cerebral infarction without residual deficits; Z79.899 Other long term (current) drug therapy
CPT/HCPCS: 36415; 80053; 80156; 80164; 82550; 84484; 85025; 87081; 94640

== ENCOUNTER 2017-09-12 15:53 | Outpatient (CLI) | payer OTHER ==
[2017-09-12 16:11] LABS: BASOPHILS % (AUTO) 0.6 % (0.0-3.0); EOSINOPHILS # (AUTO) 0.1 K/ul (0.0-0.7); EOSINOPHILS % (AUTO) 1.2 % (0.0-7.0); HEMATOCRIT 36.7 % (37.0-47.0); HEMOGLOBIN 12.6 g/dl (12.0-16.0); IMMATURE GRANULOCYTE % (AUTO) 0.3 % (0.0-5.0); LYMPHOCYTES # (AUTO) 3.1 K/uL (0.60-3.4); LYMPHOCYTES % (AUTO) 46.9 (10.0-50.0); MEAN CORPUSCULAR HEMOGLOBIN 30.5 pg (27.0-31.0); MEAN CORPUSCULAR HGB CONC 34.3 (31.8-35.4); MEAN CORPUSCULAR VOLUME 88.9 fl (81.0-99.0); MONOCYTES # (AUTO) 0.7 K/uL (0.4-2.0); MONOCYTES % (AUTO) 10.3 (0-10); NEUTROPHILS # (AUTO) 2.7 K/ul (2.0-6.9); NEUTROPHILS % (AUTO) 40.7; PLATELET COUNT 139 10^3/uL (140-440); RED BLOOD COUNT 4.13 10^6/ul (4.20-5.40); WHITE BLOOD COUNT 6.68 K/ul (4.6-10.2)
== END 2017-09-12 15:54 | disposition home or self-care (01) ==
LOC: LAB 15:53
PROVIDERS: ATTEND Emergency Medicine
DX: E86.0 Dehydration (principal)
CPT/HCPCS: 36415; 85025

== ENCOUNTER 2017-10-10 13:30 | Outpatient (CLI) | END 2017-10-10 13:31 | disposition home or self-care (01) | LOC: LAB 13:30 | PROVIDERS: ATTEND Emergency Medicine | DX: K62.5 Hemorrhage of anus and rectum (principal) | CPT/HCPCS: 36415; 85025 ==

== ENCOUNTER 2017-10-10 16:21 | Inpatient (IN) ==
[2017-10-10] MEDS: SODIUM CHLORIDE 1,000 ML IV SCH (18:22)
[2017-10-10 19:03] VITALS: BMI 14.3
--- NOTE | 2017-10-10 19:44 | CT ---
EXAM: CT abdomen and pelvis without contrast. HISTORY: Rectal bleeding TECHNIQUE: Multi-slice transaxial helical CT. Coronal and sagittal reformatons were performed. COMPARISON: 08/21/2017. FINDINGS: The heart is normal in size. Bibasilar patchy airspace opacities are again seen, not significantly ch anged. Dependent left basilar atelectasis is suggested. Evaluation of the solid organs is limited without IV contrast. The spleen is normal in size. No hyd ronephrosis or renal calculus is seen. The gallbladder appears contracted. No intrahepatic biliary ductal dilation is seen. The pancreas and the bilateral adrenal glands appear grossly unremarkable wi thin the confines of this exam. The bowel is not dilated. Operative changes at the GE junction are present. The stomach appears dist ended with ingested material. Thickening of the rectum is suggested. Moderate stool is seen through out the colon. Operative changes near the cecum are present. No evidence of free fluid in the pelvi s is seen. Urinary bladder is not well distended. The uterus appears absent. Operative changes of the left acetabulum and left proximal femur is present. The bones are severely osteopenic. Gracile appearance of the pelvis is present. Severe muscle atrophy of the pelvis and thighs are present. IMPRESSION: 1. Thickening of the rectum suggesting possible proctitis. 2. Moderate stool throughout the colon. Correlate with constipation. 3. Bibasilar patchy pneumonia, unchanged. Aspiration pneumonia is in the differential. 4. Numerous other unchanged chronic findings as detailed above.
[2017-10-10] MEDS: CARBAMAZEPINE 300 MG PO SCH (21:50)
[2017-10-10] MEDS: DIVALPROEX SODIUM 375 MG PO SCH (21:51)
[2017-10-11] MEDS ORDERED: MIRALAX PO STA (08:24)
[2017-10-11] MEDS: CITALOPRAM HYDROBROMIDE 5 MG PO SCH (08:53)
[2017-10-11] MEDS: DIVALPROEX SODIUM 250 MG PO SCH (08:53)
[2017-10-11] MEDS: FLAGYL 500 MG/100 ML 500 MG in PREMIX 100 ML NS 1 BAG IV SCH ×3 (08:53→21:12)
[2017-10-11] MEDS: CARBAMAZEPINE 300 MG PO SCH ×2 (08:53→21:12)
[2017-10-11] MEDS: DIVALPROEX SODIUM 375 MG PO SCH (21:12)
[2017-10-12] MEDS: FLAGYL 500 MG/100 ML 500 MG in PREMIX 100 ML NS 1 BAG IV SCH ×3 (06:15→21:20)
[2017-10-12] MEDS: SODIUM CHLORIDE 1,000 ML IV SCH (06:15)
[2017-10-12] MEDS: CARBAMAZEPINE 300 MG PO SCH ×2 (08:17→21:19)
[2017-10-12] MEDS: CITALOPRAM HYDROBROMIDE 5 MG PO SCH (08:17)
[2017-10-12] MEDS: DIVALPROEX SODIUM 250 MG PO SCH (08:18)
[2017-10-12] MEDS: DIVALPROEX SODIUM 375 MG PO SCH (21:19)
[2017-10-13] MEDS: FLAGYL 500 MG/100 ML 500 MG in PREMIX 100 ML NS 1 BAG IV SCH ×3 (04:47→21:29)
[2017-10-13] MEDS: CARBAMAZEPINE 300 MG PO SCH ×2 (08:40→21:28)
[2017-10-13] MEDS: DIVALPROEX SODIUM 250 MG PO SCH (08:41)
[2017-10-13] MEDS: CITALOPRAM HYDROBROMIDE 5 MG PO SCH (08:41)
[2017-10-13] MEDS ORDERED: ZOFRAN 4 MG/2 ML IVP PRN (14:54)
[2017-10-13] MEDS: SODIUM CHLORIDE 1,000 ML IV SCH ×2 (18:33)
[2017-10-13] MEDS: DIVALPROEX SODIUM 375 MG PO SCH (21:28)
[2017-10-14] MEDS: FLAGYL 500 MG/100 ML 500 MG in PREMIX 100 ML NS 1 BAG IV SCH ×3 (06:04→20:16)
[2017-10-14] MEDS ORDERED: K-DUR PO ONE (08:27)
[2017-10-14] MEDS: CARBAMAZEPINE 300 MG PO SCH ×2 (08:52→20:16)
[2017-10-14] MEDS: CITALOPRAM HYDROBROMIDE 5 MG PO SCH (08:52)
[2017-10-14] MEDS: DIVALPROEX SODIUM 250 MG PO SCH (08:53)
--- NOTE | 2017-10-14 13:46 | PN ---
DATE OF SERVICE: 10/11/17 SUBJECTIVE: The patient was admitted with rectal bleed. Hemoccult is positive. CT of the abdomen and pelvis showed acute proctitis. Still having some bloody stools. Otherwise, no nausea, vomiting. No diarrhea. No fever or chills. REVIEW OF SYSTEMS: CONSTITUTIONAL: No fever, no chills. HEENT: Normal. ENDOCRINE: No weight gain, no weight loss. CVS: No angina symptoms. No CHF symptoms. No palpitations. No atypical chest pain for CAD. No shortness of breath. No PND, no orthopnea. RESPIRATORY: No cough, no hemoptysis. GI: No nausea, no vomiting. No abdominal pain. Bloody stools. : No hematuria. No polyuria. MUSCULOSKELETAL: No joint swelling. PSYCHIATRIC: Not anxious. No depression. No suicidal thoughts. No homicidal thoughts. SKIN: Intact. No rash. PHYSICAL EXAMINATION: GENERAL: Cachectic lady lying in the bed and not in any distress. V/S: Blood pressure 113/74, respiratory rate 16, heart rate 84, temperature 97.3 , saturation 99. HEENT: Normocephalic, atraumatic. Mucosa dry. Pallor positive. No icterus. NECK: Supple. No JVD, no carotid bruit. No lymphadenopathy. LUNGS: Decreased air entry and clear. No rales or rhonchi. HEART: S1, S2 normal. No S3. No murmur, gallop or regurgitation. ABDOMEN: Soft, mild discomfort all over. Bowel sounds active. No rigidity. No rebound or guarding. No CVA tenderness. EXTREMITIES: All extremities have contracture. No clubbing or cyanosis MUSCULOSKELETAL: No joint swelling. NEUROLOGIC: Awake, alert, oriented times three. No focal deficit. LYMPHATIC: No lymph nodes palpable. SKIN: Intact. LABS: White count is 6.67, hemoglobin 11.4, hematocrit 33.6, platelet count 163 , sodium 136, potassium 4.0, chloride 106, bicarb 23, BUN 13, creatinine 0.49, glucose 96. ASSESSMENT: 1. ACUTE PROCTITIS 2. RECTAL BLEEDING 3. RECENT PNEUMONIA 4. HISTORY OF CEREBRAL PALSY 5. HISTORY OF SEIZURE DISORDER 6. STATUS POST VENTRICULAR SHUNT PLAN: 1. Will start the patient on Flagyl 250 every 8 hours. 2. IV fluids. 3. MiraLAX. 4. Daily I & O's. 5. Will follow up with the patient in daily rounds. TIME SPENT: More than 35 minutes [id number]
--- NOTE | 2017-10-14 13:58 | PN ---
DATE OF SERVICE: 10/12/17 SUBJECTIVE: The patient was admitted with rectal bleed. Stool for occult blood test came back positive. CT of abdomen and pelvis showed the proctitis. The patient was started on Flagyl. The patient still having some blood in the stools. Otherwise, no fever, chills, nausea or vomiting. REVIEW OF SYSTEMS: CONSTITUTIONAL: No fever, no chills. HEENT: Normal. ENDOCRINE: No weight gain, no weight loss. CVS: No angina symptoms. No CHF symptoms. No palpitations. No atypical chest pain for CAD. No shortness of breath. No PND, no orthopnea. RESPIRATORY: No cough, no hemoptysis. GI: No nausea, no vomiting. No abdominal pain. Blood in stools. : No hematuria. No polyuria. MUSCULOSKELETAL: No joint swelling. PSYCHIATRIC: Not anxious. No depression. No suicidal thoughts. No homicidal thoughts. SKIN: Intact. No rash. PHYSICAL EXAMINATION: V/S: Blood pressure 111/72, respiratory rate 22, heart rate 101, temperture 98.1 , saturation 98. HEENT: Normocephalic, atraumatic. Mucosa dry. Pallor positive. No icterus. NECK: Supple. No JVD, no carotid bruit. No lymphadenopathy. LUNGS: Decreased air entry. No rales or rhonchi. HEART: S1, S2 normal. No S3. No murmur, gallop or regurgitation. ABDOMEN: Soft, nontender. Sluggish. Bowel sounds active. No rigidity. No rebound or guarding. No CVA tenderness. EXTREMITIES: No pedal edema. No clubbing or cyanosis MUSCULOSKELETAL: Contractures in all extremities NEUROLOGIC: Awake, alert, oriented times three. No focal deficit. LYMPHATIC: No lymph nodes palpable. SKIN: Intact. LABS: White count 6.17, hemoglobin 10.8, hematocrit 31.8, platelet count 158, sodium 135, potassium 3.8, chloride 107, bicarb 21, BUN 9, creatinine 0.47, glucose 96. ASSESSMENT: 1. RECTAL BLEED WITH A POSITIVE HEMOCCULT BLOOD. HEMOGLOBIN IS STABLE. 2. PROCTITIS PER CT. 3. RECENT ASPIRATION PNEUMONIA 4. HISTORY OF SEZIURE DISORDER 5. STATUS POST VENTRICULAR SHUNT 6. CEREBRAL PALSY WITH MULTIPLE CONTRACTURES IN THE LOWER EXTREMITIES PLAN: 1. IV fluids. 2. Continue Flagyl 500 every 8 hours. 3. Continue Carbatrol and Depakote. 4. Daily I & O's. TIME SPENT: More than 35 minutes MTDD
--- NOTE | 2017-10-14 14:25 | PN ---
DATE OF SERVICE: 10/13/17 SUBJECTIVE: The patient is complaining of some nausea, vomiting. The patient's mother is at the bedside. Bowel movements are there, but no bloody bowel movements anymore. No abdominal pain. REVIEW OF SYSTEMS: CONSTITUTIONAL: No fever, no chills. HEENT: Normal. ENDOCRINE: No weight gain, no weight loss. CVS: No angina symptoms. No CHF symptoms. No palpitations. No atypical chest pain for CAD. No shortness of breath. No PND, no orthopnea. RESPIRATORY: No cough, no hemoptysis. GI: Nausea with vomiting. No abdominal pain. : No hematuria. No polyuria. MUSCULOSKELETAL: No joint swelling. PSYCHIATRIC: Not anxious. No depression. No suicidal thoughts. No homicidal thoughts. SKIN: Intact. No rash. PHYSICAL EXAMINATION: Cachectic lady lying in the bed. V/S: Blood pressure 141/89, respiratory rate 16, heart rate 92, temperature 97.8 , saturation 97. HEENT: Normocephalic, atraumatic. Mucosa dry. Pallor positive. NECK: Supple. No JVD, no carotid bruit. No lymphadenopathy. LUNGS: Clear to auscultation. No rales or rhonchi. HEART: S1, S2 normal. No S3. No murmur, gallop or regurgitation. ABDOMEN: Soft, nontender. Bowel sounds sluggish. Complaining about the nausea. No rigidity. No rebound or guarding. No CVA tenderness. EXTREMITIES: No pedal edema. No clubbing or cyanosis MUSCULOSKELETAL: Contractures in the upper and lower extremities. NEUROLOGIC: Awake, alert, oriented times three. No focal deficit. LYMPHATIC: No lymph nodes palpable. SKIN: Intact. LABS: Sodium 139, potassium 4.1, chloride 108, bicarb 22, BUN 10, creatinine 0.49, white count 5.76, hemoglobin 11.0, hematocrit 32.4, platelet count 152. ASSESSMENT: 1. RECTAL BLEED WITH POSITIVE OCCULT BLOOD TEST. HEMOGLOBIN STABLE. 2. PROCTITIS 3. NAUSEA AND VOMITING NOW 4. HISTORY OF SEIZURE DISORDER 5. VENTRICULAR SHUNT PLAN: 1. Start Zofran prn. 2. Continue the Flagyl 500 mg every 8 hours. 3. Will check the Depakote levels and Carbatrol levels. TIME SPENT: More than 35 minutes MTDD
[2017-10-14] MEDS: DIVALPROEX SODIUM 375 MG PO SCH (20:16)
[2017-10-15] MEDS: FLAGYL 500 MG/100 ML 500 MG in PREMIX 100 ML NS 1 BAG IV SCH (05:24)
[2017-10-15] MEDS: CITALOPRAM HYDROBROMIDE 5 MG PO SCH (08:05)
[2017-10-15] MEDS: CARBAMAZEPINE 300 MG PO SCH (08:05)
[2017-10-15] MEDS: DIVALPROEX SODIUM 250 MG PO SCH (08:05)
[2017-10-15 09:52] VITALS: BP 144/93; TEMP 97.5
--- NOTE | 2017-10-15 11:25 | PN ---
DATE OF SERVICE: 10/14/17 SUBJECTIVE: The patient is not having any bloody bowel movements. She had a regular bowel movement. She was nauseous yesterday for the whole day and today she is feeling somewhat better. She was not able to eat yesterday. She will try to eat something today. The patient's family is at the bedside. They did not have any new questions. REVIEW OF SYSTEMS: CONSTITUTIONAL: No fever, no chills. HEENT: Normal. ENDOCRINE: No weight gain, no weight loss. CVS: No angina symptoms. No CHF symptoms. No palpitations. No atypical chest pain for CAD. No shortness of breath. No PND, no orthopnea. RESPIRATORY: No cough, no hemoptysis. GI: No nausea, no vomiting. No abdominal pain. : No hematuria. No polyuria. MUSCULOSKELETAL: No joint swelling. PSYCHIATRIC: Not anxious. No depression. No suicidal thoughts. No homicidal thoughts. SKIN: Intact. No rash. PHYSICAL EXAMINATION: GENERAL: Cachectic lady lying in the bed and not in any distress. V/S: Blood pressure 116/76, respiratory rate 18, heart rate 98, temperature 98.3 , saturation 100%. HEENT: Normocephalic, atraumatic. Mucosa dry. Pallor positive. No icterus. NECK: Supple. No JVD, no carotid bruit. No lymphadenopathy. LUNGS: Decreased entry. No rales or rhonchi. HEART: S1, S2 normal. No S3. No murmur, gallop or regurgitation. ABDOMEN: Soft, nontender. Bowel sounds active. No rigidity. No rebound or guarding. No CVA tenderness. EXTREMITIES: Contractures. No pedal edema. No clubbing or cyanosis MUSCULOSKELETAL: No joint swelling. NEUROLOGIC: Awake, alert, oriented times three. No focal deficit. Communication is minimal secondary to the cerebral palsy. LYMPHATIC: No lymph nodes palpable. SKIN: Intact. LABS: White count 5.32, hemoglobin 10.7, hematocrit 30.9, platelet count 149, sodium 141, potassium 3.4, chloride 108, bicarb 23, BUN 9, creatinine 0.47. Stool for occult blood test is positive. ASSESSMENT: 1. RECTAL BLEED WITH POSITIVE OCCULT BLOOD TEST 2. PROCTITIS 3. RECENT ASPIRATION PNEUMONIA 4. RESTRICTIVE LUNG DISEASE 5. CEREBRAL PALSY 6. STATUS POST VENTRICULAR STENT 7. SEIZURE DISORDER PLAN: 1. Replace the potassium. 2. Continue the Flagyl, Zofran prn. 3. IV fluids. 4. Continue home medications. 5. Daily I & O's. TIME SPENT: More than 35 minutes MTDD
--- NOTE | 2017-10-18 14:59 | DS ---
DATE OF SERVICE: 10/15/17 FINAL DIAGNOSIS: 1. RECTAL BLEED 2. PROCTITIS 3. SEIZURE DISORDER 4. CEREBRAL PALSY 5. STATUS POST VENTRICULAR PERITONEAL SHUNT 6. GASTROESOPHAGEAL REFLUX DISEASE 7. HISTORY OF RECURRENT PNEUMONIA 8. CONTRACTURES IN ALL UPPER AND LOWER EXTREMITIES 9. ANEMIA PLAN: 1. Discharge the patient home. 2. New medications: Flagyl 500 mg every 8 hours 3. Continue the rest of the home medications, which are: Carbatrol, Celexa, Depakote, Mineral oil and Zofran. 4. Diet: Soft diet and needs help with the feedings. 5. Activity: Complete bed rest. Frequent turning and up to chair. DISEASE SPECIFIC EDUCATION: About the rectal bleed and need for the colonoscopy and endoscopy were discussed. Verbalized understanding. HOSPITAL COURSE: Tarah Nazario, who is a 42 year old female with a history of cerebral palsy, quadriplegia, was recently in the hospital last month. Ever since she was discharged, she started having rectal bleed for which the patient was to the [facility] where they did a general examination and there was no problem. She went to the [facility] in [place] and they cleared her and suggested she should have the endoscopy and colonoscopy. After all of these, the patient came to the office and still having the bloody bowel movements. The patient's family, mother and father, was really extremely concerned. At that time, she was admitted to the hospital. We got a CT of the abdomen and pelvis which showed the acute proctitis and some constipation. The patient was started on the Flagyl, IV fluids and Zofran for nausea. With the given IV antibiotics, the patient started feeling better. Hemoglobin did fall from the 13.5 to 11.4 and then stayed steady. She continued to have bloody bowel movements, but within two days the bloody bowel movements changed. The patient started developing nausea and did not eat one day. She then started eating and she was feeling better and did not have any problems. Stool occult blood test was positive. Levels for the Valproic acid and carbamazepine were done, which were all within normal limits. As the patient's bleeding has stopped and hemoglobin is stable, she is being discharged to home. TIME SPENT: MORE THAN 60 MINUTES MTDD
== END 2017-10-15 10:32 | disposition home or self-care (01) | DRG 379 ==
LOC: MEDSURG A 16:21
PROVIDERS: ADMIT Emergency Medicine; ATTEND Emergency Medicine
DX: K92.1 Melena (principal); K62.89 Other specified diseases of anus and rectum; G40.909 Epilepsy, unspecified, not intractable, without status epilepticus; G80.8 Other cerebral palsy; K21.9 Gastro-esophageal reflux disease without esophagitis; M24.50 Contracture, unspecified joint; D64.9 Anemia, unspecified; R11.2 Nausea with vomiting, unspecified; Z98.2 Presence of cerebrospinal fluid drainage device; Z87.01 Personal history of pneumonia (recurrent); Z79.899 Other long term (current) drug therapy
CPT/HCPCS: 36415; 80053; 80156; 80164; 82272; 85025; 97802

== ENCOUNTER 2018-01-20 09:38 | Inpatient (IN) | payer OTHER ==
[2018-01-20] MEDS ORDERED: DECADRON 4 MG/ML SDV IVP STA (10:05)
--- NOTE | 2018-01-20 11:15 | DI ---
Exam: Chest one-view History: Cough FINDINGS: Compared with chest CT on 08/12/2017. Again, left-sided volume loss and left lower lung c onsolidative opacity. Hyperexpansion of the right lung with medial interstitial coarsening. Rotated non conventional positioning is technically inhibiting. Senescent changes of the chest wall. Left a pproach central vascular catheter with its tip at the superior atriocaval junction level. Impression: Recurrent or chronic consolidative change in the left lower lung with left-sided volume loss. Underlying chronic obstructive pulmonary disease.
[2018-01-20 11:45] VITALS: BMI 13.8
[2018-01-20] MEDS: DUONEB NEB SCH ×3 (13:01→23:48)
--- NOTE | 2018-01-20 14:26 | ED.PDOC ---
Procedures - IV/Art Line Insertion Location: rt lower leg Type of Line: Peripheral IV Invasive Line/IV Catheter Gauge: 24 Number of Attempts: 2 Blood Return Positive: Yes Invasive Line/IV Flushes Without Difficulty: Yes Conscious Sedation - Pre-op Assessment Weight: 66 lb 2.219 oz Surgical History: SHUNTS,HERNIA,CLUB FOOT,TENDON,HIP - Medical History Past Medical History: Seizures, Other Other History: CEREBRAL PALSY
[2018-01-20] MEDS: SODIUM CHLORIDE 1,000 ML IV SCH (14:37)
[2018-01-20] MEDS: ROCEPHIN 1 GM in SODIUM CHLORIDE 50 ML IV SCH (14:37)
[2018-01-20] MEDS: AUGMENTIN 250-62.5/5 SUSP PO SCH ×2 (14:51→20:23)
[2018-01-20] MEDS: DIVALPROEX SODIUM 375 MG PO SCH (20:23)
[2018-01-20] MEDS: CARBAMAZEPINE 300 MG PO SCH (20:24)
[2018-01-21] MEDS: DUONEB NEB SCH ×4 (05:28→22:55)
[2018-01-21] MEDS ORDERED: DECADRON 4 MG/ML SDV IVP STA (08:08)
[2018-01-21] MEDS: DIVALPROEX SODIUM 250 MG PO SCH (08:36)
[2018-01-21] MEDS: CARBAMAZEPINE 300 MG PO SCH ×2 (08:36→20:58)
[2018-01-21] MEDS: CITALOPRAM HYDROBROMIDE 5 MG PO SCH (08:36)
[2018-01-21] MEDS: ROCEPHIN 1 GM in SODIUM CHLORIDE 50 ML IV SCH (08:37)
[2018-01-21] MEDS ORDERED: CITALOPRAM HYDROBROMIDE 5 MG PO SCH (09:00)
[2018-01-21] MEDS: SODIUM CHLORIDE 1,000 ML IV SCH (10:16)
[2018-01-21] MEDS: DIVALPROEX SODIUM 375 MG PO SCH (20:57)
[2018-01-22] MEDS: SODIUM CHLORIDE 1,000 ML IV SCH (04:29)
[2018-01-22] MEDS: DUONEB NEB SCH ×4 (05:04→20:38)
[2018-01-22] MEDS: ROCEPHIN 1 GM in SODIUM CHLORIDE 50 ML IV SCH (08:21)
[2018-01-22] MEDS: CITALOPRAM HYDROBROMIDE 5 MG PO SCH (08:21)
[2018-01-22] MEDS: CARBAMAZEPINE 300 MG PO SCH ×2 (08:22→20:48)
[2018-01-22] MEDS: DIVALPROEX SODIUM 250 MG PO SCH (08:22)
[2018-01-22] MEDS: DIVALPROEX SODIUM 375 MG PO SCH (20:49)
[2018-01-23] MEDS: SODIUM CHLORIDE 1,000 ML IV SCH ×2 (04:34→05:40)
[2018-01-23] MEDS: DUONEB NEB SCH ×4 (04:55→20:54)
[2018-01-23] MEDS: ROCEPHIN 1 GM in SODIUM CHLORIDE 50 ML IV SCH (08:37)
[2018-01-23] MEDS: CITALOPRAM HYDROBROMIDE 5 MG PO SCH (08:38)
[2018-01-23] MEDS: DIVALPROEX SODIUM 250 MG PO SCH (08:38)
[2018-01-23] MEDS: CARBAMAZEPINE 300 MG PO SCH ×2 (08:39→20:27)
[2018-01-23] MEDS: ROBITUSSIN SUGAR-FREE PO SCH ×4 (09:33→20:28)
[2018-01-23] MEDS: DIVALPROEX SODIUM 375 MG PO SCH (20:27)
[2018-01-24] MEDS: SODIUM CHLORIDE 1,000 ML IV SCH ×2 (01:31→21:28)
[2018-01-24] MEDS: DUONEB NEB SCH ×4 (05:12→21:50)
[2018-01-24] MEDS: ROCEPHIN 1 GM in SODIUM CHLORIDE 50 ML IV SCH (09:03)
[2018-01-24] MEDS: ROBITUSSIN SUGAR-FREE PO SCH ×4 (09:04→20:20)
[2018-01-24] MEDS: CITALOPRAM HYDROBROMIDE 5 MG PO SCH (09:04)
[2018-01-24] MEDS: CARBAMAZEPINE 300 MG PO SCH ×2 (09:04→20:20)
[2018-01-24] MEDS: DIVALPROEX SODIUM 250 MG PO SCH (09:05)
[2018-01-24] MEDS: DIVALPROEX SODIUM 375 MG PO SCH (20:20)
[2018-01-25] MEDS: DUONEB NEB SCH ×3 (05:12→13:55)
[2018-01-25] MEDS: CITALOPRAM HYDROBROMIDE 5 MG PO SCH (08:09)
[2018-01-25] MEDS: CARBAMAZEPINE 300 MG PO SCH (08:09)
[2018-01-25] MEDS: ROCEPHIN 1 GM in SODIUM CHLORIDE 50 ML IV SCH (08:09)
[2018-01-25] MEDS: DIVALPROEX SODIUM 250 MG PO SCH (08:09)
[2018-01-25] MEDS: ROBITUSSIN SUGAR-FREE PO SCH ×2 (08:12→12:01)
[2018-01-25 09:36] VITALS: TEMP 98.5
[2018-01-25 13:06] VITALS: BP 151/99
--- NOTE | 2018-02-06 14:23 | PN ---
DATE OF SERVICE: 01/22/18 SUBJECTIVE: The patient was admitted with bronchitis and dehydration. The patient is still coughing and congested. REVIEW OF SYSTEMS: CONSTITUTIONAL: No fever, no chills. Weak and tired. HEENT: Normal. ENDOCRINE: No weight gain, no weight loss. CVS: No angina symptoms. No CHF symptoms. No palpitations. No atypical chest pain for CAD. No shortness of breath. No PND, no orthopnea. RESPIRATORY: Cough and congestion. no hemoptysis. GI: No nausea, no vomiting. No abdominal pain. : No hematuria. No polyuria. MUSCULOSKELETAL: No joint swelling. PSYCHIATRIC: Not anxious. No depression. No suicidal thoughts. No homicidal thoughts. SKIN: Intact. No rash. PHYSICAL EXAMINATION: V/S: Blood pressure 110/74, respiratory rate 20, heart rate 95, temperature 97.6 with saturation 97. HEENT: Normocephalic, atraumatic. Mucosa dry. Pallor positive. No icterus. NECK: Supple. No JVD, no carotid bruit. No lymphadenopathy. LUNGS: Decreased and basilar crackles. Clear to auscultation. No rales or rhonchi. HEART: S1, S2 normal. No S3. No murmur, gallop or regurgitation. ABDOMEN: Soft, nontender. Bowel sounds active. No rigidity. No rebound or guarding. No CVA tenderness. EXTREMITIES: No cyanosis, clubbing or pedal edema. 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 MUSCULOSKELETAL: No joint swelling. NEUROLOGIC: Awake, alert, oriented times three. No focal deficit. LYMPHATIC: No lymph nodes palpable. SKIN: Intact. LABS: WBC 8.12, hgb 10.5, hct 31.4, plt count 121, sodium 140, potassium 3.6, chloride 108, bicarb 20, BUN 7, creatinine 0.43 and glucose 88. ASSESSMENT: 1. Upper respiratory infection 2. Bronchitis 3. Dehydration 4. History of cerebral palsy 5. Restrictive lung disease 6. Contractures in both extremities 7. GERD PLAN: 1. Continue Rocephin 2. Will dose of Decadron 3. Will continue Depakote 4. DUO NEBS 5. IV fluids 6. Carvedilol TIME SPENT: More than 35 minutes MTDD
--- NOTE | 2018-02-20 11:55 | PN ---
DATE OF SERVICE: 01/23/18 SUBJECTIVE: The patient was admitted with upper respiratory infection and bronchitis. The patient has history of cerebral palsy. The patient's mother is by the bedside says that she is till coughing but not able to get any phlegm. REVIEW OF SYSTEMS: CONSTITUTIONAL: No fever, no chills. HEENT: Normal. ENDOCRINE: No weight gain, no weight loss. CVS: No angina symptoms. No CHF symptoms. No palpitations. No atypical chest pain for CAD. No shortness of breath. No PND, no orthopnea. RESPIRATORY: Cough and congestion and not able to get any phlegm, no hemoptysis. GI: No nausea, no vomiting. No abdominal pain. : No hematuria. No polyuria. MUSCULOSKELETAL: No joint swelling. PSYCHIATRIC: Not anxious. No depression. No suicidal thoughts. No homicidal thoughts. SKIN: Intact. No rash. PHYSICAL EXAMINATION: V/S: Blood pressure 128/78, respiratory rate 20, heart rate 110, temperature 98.7 with saturation 97. HEENT: Normocephalic, atraumatic. Mucosa dry. Pallor positive. Cachetic lady laying in the bed and not in any distress. NECK: Supple. No JVD, no carotid bruit. No lymphadenopathy. LUNGS: Decreased and basilar crackles. Clear to auscultation. No rales or rhonchi. HEART: S1, S2 normal. No S3. No murmur, gallop or regurgitation. ABDOMEN: Soft, nontender. Bowel sounds active. No rigidity. No rebound or guarding. No CVA tenderness. EXTREMITIES: No cyanosis, clubbing or pedal edema. Multiple contractures. MUSCULOSKELETAL: No joint swelling. NEUROLOGIC: Awake, alert, oriented times three. No focal deficit. LYMPHATIC: No lymph nodes palpable. SKIN: Intact. LABS: Sodium 140, potassium 3.6, chloride 108, bicarb 20, BUN 7, creatinine 0.43, glucose 88, WBC 8.12, hgb 10.5, hct 31.4, plt count 121. ASSESSMENT: 1. Dehydration 2. Upper respiratory infection 3. Cerebral palsy 4. Quadriplegias 5. History of ventricular peritoneal shunt 6. History of seizures on the medications PLAN: 1. Continue Rocephin 1 gram daily 2. Breathing treatments 3. Robitussin sugar free 4. IV fluids 5. Depakote 6. Citalopram, continue 7. Carvedilol, continue TIME SPENT: More than 35 minutes MTDD
--- NOTE | 2018-02-27 12:51 | PN ---
DATE OF SERVICE: 01/24/18 SUBJECTIVE: The patient still with cough and congestion. No fever. No PND, no orthopnea. The patient's mother is by the bedside. She is coughing, unable to get any phlegm. No fever, no chills. Blood count is stable. She had one episode of bloody diarrhea but it was only one episode. No abdominal pain, nausea or vomiting. REVIEW OF SYSTEMS: CONSTITUTIONAL: No fever, no chills. HEENT: Normal. ENDOCRINE: No weight gain, no weight loss. CVS: No angina symptoms. No CHF symptoms. No palpitations. No atypical chest pain for CAD. No shortness of breath. No PND, no orthopnea. RESPIRATORY: Cough. No hemoptysis. GI: No nausea, no vomiting. No abdominal pain. : No hematuria. No polyuria. MUSCULOSKELETAL: No joint swelling. PSYCHIATRIC: Not anxious. No depression. No suicidal thoughts. No homicidal thoughts. SKIN: Intact. No rash. PHYSICAL EXAMINATION: V/S: BP 125/82, respiratory rate 18, heart rate 100, temperature 97.7. Saturation 95. HEENT: Normocephalic, atraumatic. Mucosa dry. Pallor positive. NECK: Supple. No JVD, no carotid bruit. No lymphadenopathy. LUNGS: Decreased with basilar crackles. HEART: S1, S2 normal. No S3. No murmur, gallop or regurgitation. ABDOMEN: Soft, nontender. Bowel sounds active. No rigidity. No rebound or guarding. No CVA tenderness. EXTREMITIES: Contractures present. MUSCULOSKELETAL: No joint swelling. NEUROLOGIC: Awake, alert. No focal deficit. LYMPHATIC: No lymph nodes palpable. SKIN: Intact. LABS: White count 7.30, hemoglobin 11.7, hematocrit 34.1, platelet count 218. Sodium 140, potassium 3.9, chloride 106, bicarb 21, BUN 4, creatinine 0.46. ASSESSMENT: 1. Dehydration which is better 2. Respiratory infection 3. Restrictive lung disease 4. Cerebral palsy 5. Multiple contractures in upper and lower extremities 6. History of seizure disorder status post retroperitoneal shunt PLAN: 1. Continue Rocephin 2. Duonebs 3. IV fluids 4. Daily I & O's TIME SPENT: More than 35 minutes MTDD
--- NOTE | 2018-03-20 11:44 | DS ---
DATE OF SERVICE: 01/25/18 FINAL DIAGNOSIS: 1. UPPER RESPIRATORY INFECTION 2. DEHYDRATION 3. HISTORY OF PNEUMONIA 4. COPD 5. CEREBRAL PALSY 6. GERD 7. ARTHRITIS 8. ANEMIA 9. STRIP DEBURRER SHUNT 10. TONSILLECTOMY 11. HERNIA REPAIR 12. HYSTERECTOMY 13. APPENDECTOMY 14. LEFT HIP SURGERY DISCHARGE INSTRUCTIONS: 1. Discharge the patient home. 2. Followup in the office in 5 to 7 days. 3. Increase hydration. MEDICATIONS AT DISCHARGE: Celexa Carbatrol Depakote Mineral Oil as needed NEW PRESCRIPTIONS: Duonebs three times a day for one month Prednisone 10 mg twice a day for 5 more days Robitussin for 5 more days DIET INSTRUCTIONS: Regular diet, increased high fiber diet ACTIVITY: The patient has very restricted activities. Stretching exercises have been discussed with family members. DISEASE SPECIFIC EDUCATION: Restrictive lung disease, bronchitis and risk of pneumonia discussed. Antibiotic use and diarrhea have been discussed. HOSPITAL COURSE: This is a 42-year-old female who has a history of cerebral palsy, wheelchair bound, came to the office with cough and congestion, not able to eat or drink anything. In view of risk for impending pneumonia, the patient was admitted to the hospital, started on IV fluids and IV antibiotics. Chest x-ray was done which showed chronic consolidative changes on the left lower lobe. The patient was started on breathing treatments, steroids and IV fluids. Continue home medications. Prednisone with the given dosage, gradually the patient started feeling better. Valproic Acid, Carbamazepine levels were done which were within normal limits. She started coughing and started having some phlegm, had one to two episodes of diarrhea which had some blood but blood did stop immediately, did not have any problems. Hemoglobin/hematocrit were stable at 11.7. As the patient's cough and congestion is better, started eating and drinking the fluids and able to keep it down, the patient was discharged home. TIME SPENT: MORE THAN 65 MINUTES MTDD
== END 2018-01-25 15:45 | disposition home or self-care (01) | DRG 202 ==
LOC: MEDSURG A 09:38
PROVIDERS: ADMIT Emergency Medicine; ATTEND Emergency Medicine
DX: J20.9 Acute bronchitis, unspecified (principal); G82.50 Quadriplegia, unspecified; J06.9 Acute upper respiratory infection, unspecified; E86.0 Dehydration; J44.9 Chronic obstructive pulmonary disease, unspecified; Z87.01 Personal history of pneumonia (recurrent); Z87.898 Personal history of other specified conditions; G80.8 Other cerebral palsy; K21.9 Gastro-esophageal reflux disease without esophagitis; M19.93 Secondary osteoarthritis, unspecified site; D64.9 Anemia, unspecified; M24.50 Contracture, unspecified joint; J98.4 Other disorders of lung
CPT/HCPCS: 36415; 80053; 80156; 80164; 82550; 82553; 84484; 85025; 94640; 99223; 99233; 99239

== ENCOUNTER 2018-03-07 15:30 | Inpatient (IN) ==
[2018-03-07] MEDS ORDERED: MINERAL OIL PO PRN (16:03)
[2018-03-07] MEDS: SODIUM CHLORIDE 1,000 ML IV SCH (16:38)
[2018-03-07] MEDS ORDERED: DUONEB NEB SCH (21:00)
[2018-03-07] MEDS: DIVALPROEX SODIUM 375 MG PO SCH (21:17)
[2018-03-07] MEDS: CARBAMAZEPINE 300 MG PO SCH (21:17)
[2018-03-07] MEDS: DUONEB NEB SCH (22:04)
[2018-03-08] MEDS: DUONEB NEB SCH ×3 (05:02→22:30)
[2018-03-08] MEDS: CARBAMAZEPINE 300 MG PO SCH ×2 (09:50→21:23)
[2018-03-08] MEDS: CITALOPRAM HYDROBROMIDE 5 MG PO SCH (09:50)
[2018-03-08] MEDS: DIVALPROEX SODIUM 250 MG PO SCH (09:50)
--- NOTE | 2018-03-08 14:58 | DI ---
EXAM: Single view of the abdomen. History: Constipation. Comparison: Abdominal radiograph 08/25/2017, CT abdomen pelvis 10/10/2017 Findings: Nonspecific but nonobstructive bowel gas pattern. No free intraperitoneal air. Left basi lar lung infiltrate. No significant colonic stool. The visualized osseous structures unchanged with chronic deformity of the left hip and stable hardware. Area of heterogeneity within the lower pelvis . Impression: 1. No evidence for bowel obstruction. 2. No significant colonic stool. 3. Left lower lobe lung infiltrate. 4. Area of heterogeneity within the lower pelvis is nonspecific and could be related to artifact fro m overlying garments
[2018-03-08] MEDS: SODIUM CHLORIDE 1,000 ML IV SCH (15:44)
[2018-03-08] MEDS: DIVALPROEX SODIUM 375 MG PO SCH (21:25)
[2018-03-09] MEDS: DUONEB NEB SCH ×3 (05:02→21:02)
[2018-03-09] MEDS: SODIUM CHLORIDE 1,000 ML IV SCH (09:43)
[2018-03-09] MEDS ORDERED: MIRALAX PO STA (09:44)
[2018-03-09] MEDS ORDERED: MIRALAX ONE (09:54)
[2018-03-09] MEDS: DIVALPROEX SODIUM 250 MG PO SCH (10:26)
[2018-03-09] MEDS: CARBAMAZEPINE 300 MG PO SCH ×2 (10:26→21:03)
[2018-03-09] MEDS: CITALOPRAM HYDROBROMIDE 5 MG PO SCH (10:26)
[2018-03-09] MEDS: DIVALPROEX SODIUM 375 MG PO SCH (21:04)
[2018-03-10] MEDS: DUONEB NEB SCH ×2 (04:56→14:14)
[2018-03-10] MEDS: CARBAMAZEPINE 300 MG PO SCH (08:22)
[2018-03-10] MEDS: DIVALPROEX SODIUM 250 MG PO SCH (08:22)
[2018-03-10] MEDS: CITALOPRAM HYDROBROMIDE 5 MG PO SCH (08:22)
[2018-03-10] MEDS ORDERED: MIRALAX PO STA (08:32)
[2018-03-10 14:40] VITALS: BP 112/74; TEMP 98
--- NOTE | 2018-03-11 09:40 | HP ---
DATE OF SERVICE: 03/07/18 CHIEF COMPLAINT: Rectal bleed. HISTORY OF PRESENT ILLNESS: This is a 42-year-old female with history of cerebral palsy, wheelchair bound, multiple contractures. The patient's mother called stating that the patient had been constipated for one week and had a BM on the day of admission which was bloody. She had a few more bowel movements which was livan blood, they were concerned so the patient was directly admitted from home due to the multiple problems, acute rectal bleed, constipation and given condition. REVIEW OF SYSTEMS: CONSTITUTIONAL: No fever, no chills. HEENT: Normal. ENDOCRINE: No weight gain; no weight loss. CVS: No chest pain. No PND, no orthopnea. No shortness of breath. No PND, no orthopnea. RESPIRATORY: No cough, no congestion. No hemoptysis. GI: Constipation. Blood in the rectum. No nausea, no vomiting. No abdominal pain. No melena. : No hematuria. No polyuria. MUSCULOSKELETAL: No joint swelling. PSYCHIATRIC: Not anxious. No depression. No suicidal thoughts. No homicidal thoughts. SKIN: Intact, no open lesions. PAST MEDICAL HISTORY: Cerebral palsy Epilepsy History of brain shunt, [employer] shunt for cerebral palsy Restrictive lung disease Rectal bleed Contractures in multiple joints because of cerebral palsy PAST SURGICAL HISTORY: Left hip pinning Tendon Release, left leg Appendectomy PERSONAL HISTORY: Does not smoke or drink. She needs help with ADLs. FAMILY HISTORY: Not significant. MEDICATIONS: (Home) Mineral Oil Carbatrol Depakote Celexa Duonebs ALLERGIES: CHOCOLATE FLAVOR, SULFA, AZITHROMYCIN PHYSICAL EXAMINATION: V/S: BP 129/89, respiratory rate 16, heart rate 92, temperature 97.8, saturation 95. HEENT: Atraumatic, normocephalic. No scleral icterus. Pallor positive. Mucosa dry. NECK: Supple. No JVD, no bruit. No lymphadenopathy. No thyromegaly. HEART: S1, S2 normal. No murmur. No cyanosis or clubbing. No ascites. LUNGS: Decreased entry. Clear to auscultation. No rales or rhonchi. ABDOMEN: Soft, nontender. Bowel sounds are active. No CVA tenderness. No rigidity or guarding. EXTREMITIES: Upper and lower contractures are present. No pedal edema. No cyanosis or clubbing MUSCULOSKELETAL: Normal joints, no swelling. NEUROLOGIC: The patient is awake and alert. SKIN: Intact; no open lesions. LYMPHATIC: No lymph nodes palpable. LABS: White count 7.82, hemoglobin 12.3, hematocrit 35.2, platelet count 155. Sodium 134, potassium 3.8, chloride 100, bicarb 24, BUN 14, creatinine 0.51, glucose 95. ASSESSMENT: 1. ACUTE RECTAL BLEED 2. CEREBRAL PALSY 3. CONTRACTURES UPPER AND LOWER EXTREMITIES 4. SEIZURE DISORDER PLAN: 1. IV fluids 2. Continue to monitor the H & H 3. Breathing treatments 4. Continue home medications 5. Will follow the patient in daily rounds TIME SPENT: MORE THAN 75 minutes MTDD
--- NOTE | 2018-03-11 13:24 | PN ---
DATE OF SERVICE: 03/10/18 SUBJECTIVE: The patient did have small bowel movement which did have some blood in it. REVIEW OF SYSTEMS: CONSTITUTIONAL: No fever, no chills. HEENT: Normal. ENDOCRINE: No weight gain, no weight loss. CVS: No angina symptoms. No CHF symptoms. No palpitations. No atypical chest pain for CAD. No shortness of breath. No PND, no orthopnea. RESPIRATORY: No cough, no hemoptysis. GI: No nausea, no vomiting. No abdominal pain. : No hematuria. No polyuria. MUSCULOSKELETAL: No joint swelling. PSYCHIATRIC: Not anxious. No depression. No suicidal thoughts. No homicidal thoughts. SKIN: Intact. No rash. PHYSICAL EXAMINATION: V/S: Blood pressure 112/74, respiratory rate 16, heart rate 96 and temperature 98.0. HEENT: Normocephalic, atraumatic. Mucosa dry. Pallor positive. Cachetic lady laying in the bed. Contractors are present. NECK: Supple. No JVD, no carotid bruit. No lymphadenopathy. LUNGS: Decreased entry. Clear to auscultation. No rales or rhonchi. HEART: S1, S2 normal. No S3. No murmur, gallop or regurgitation. ABDOMEN: Soft, nontender. Bowel sounds active. No rigidity. No rebound or guarding. No CVA tenderness. EXTREMITIES: No cyanosis, clubbing or pedal edema. MUSCULOSKELETAL: No joint swelling. NEUROLOGIC: Awake, alert, oriented times three. No focal deficit. LYMPHATIC: No lymph nodes palpable. SKIN: Intact. LABS: Sodium 134, potassium 3.8, chloride 100, bicarb 24, BUN 14, creatinine 0.51 and glucose 95. WBC 7.65, hgb 10.6, hct 32.5, plt count 131. ASSESSMENT: 1. Rectal bleed, hgb stable 2. Constipation 3. Restrictive lung disease 4. Ventriculoperitoneal shunt 5. Cerebral palsy 6. 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 Miralax and rectal suppository 2. H&H 3. IV fluids 4. Breathing treatments 5. If the patient does not have anymore bloody bowel movement most likely will discharge the patient today. TIME SPENT: More than 35 minutes MTDD
--- NOTE | 2018-03-11 13:28 | PN ---
DATE OF SERVICE: 03/09/18 SUBJECTIVE: The patient did not have BM after the day before bowel movement where she had some blood. REVIEW OF SYSTEMS: CONSTITUTIONAL: No fever, no chills. HEENT: Normal. ENDOCRINE: No weight gain, no weight loss. CVS: No angina symptoms. No CHF symptoms. No palpitations. No atypical chest pain for CAD. No shortness of breath. No PND, no orthopnea. RESPIRATORY: No cough, no hemoptysis. GI: No nausea, no vomiting. No abdominal pain. : No hematuria. No polyuria. MUSCULOSKELETAL: No joint swelling. PSYCHIATRIC: Not anxious. No depression. No suicidal thoughts. No homicidal thoughts. SKIN: Intact. No rash. PHYSICAL EXAMINATION: V/S: Blood pressure 124/86, respiratory rate 15, heart rate 112, temperature 98.0 and saturation 98%. GENERAL: Cachetic lady laying in the bed. HEENT: Normocephalic, atraumatic. Mucosa dry. Pallor positive. No icterus. NECK: Supple. No JVD, no carotid bruit. No lymphadenopathy. LUNGS: Decreased and clear to auscultation. No rales or rhonchi. HEART: S1, S2 normal. No S3. No murmur, gallop or regurgitation. ABDOMEN: Soft, nontender. Bowel sounds active. No rigidity. No rebound or guarding. No CVA tenderness. EXTREMITIES: No cyanosis, clubbing or pedal edema. 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 MUSCULOSKELETAL: No joint swelling. NEUROLOGIC: Awake, alert, oriented times three. No focal deficit. LYMPHATIC: No lymph nodes palpable. SKIN: Intact. LABS: WBC 7.65, hgb 10.6, hct 32.4, plt count 131, sodium 134, potassium 3.8, chloride 100, bicarb 24, BUN 14, creatinine 0.51 and glucose 95%. ASSESSMENT: 1. Rectal bleed, hgb stable 2. Constipation 3. Restrictive lung disease 4. Cerebral palsy status post ventriculoperitoneal shunt 5. History of seizure disorder 6. 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 PLAN: 1. Continue to monitor the H&H 2. Miralax 3. Breathing treatments. TIME SPENT: More than 35 minutes MTDD
--- NOTE | 2018-03-20 10:28 | PN ---
DATE OF SERVICE: 03/08/18 SUBJECTIVE: The patient did have two bowel movements yesterday which were bloody and today morning she had a regular bowel movement. Hgb dropped from the 12.3 to 10.7. REVIEW OF SYSTEMS: CONSTITUTIONAL: No fever, no chills. HEENT: Normal. ENDOCRINE: No weight gain, no weight loss. CVS: No angina symptoms. No CHF symptoms. No palpitations. No atypical chest pain for CAD. No shortness of breath. No PND, no orthopnea. RESPIRATORY: No cough, no hemoptysis. GI: No nausea, no vomiting. No abdominal pain. : No hematuria. No polyuria. MUSCULOSKELETAL: No joint swelling. PSYCHIATRIC: Not anxious. No depression. No suicidal thoughts. No homicidal thoughts. SKIN: Intact. No rash. PHYSICAL EXAMINATION: V/S: Blood pressure 121/76, respiratory rate 16, heart rate 87, temperature 98.9 and saturation is 98%. GENERAL: Cachetic lady laying in the bed and not in any distress. HEENT: Normocephalic, atraumatic. Mucosa dry. Pallor positive. NECK: Supple. No JVD, no carotid bruit. No lymphadenopathy. LUNGS: Decreased and clear to auscultation. No rales or rhonchi. HEART: S1, S2 normal. No S3. No murmur, gallop or regurgitation. ABDOMEN: Soft, nontender. Bowel sounds active. No rigidity. No rebound or guarding. No CVA tenderness. EXTREMITIES: No cyanosis, clubbing or pedal edema. Upper and lower extremity contractures present. MUSCULOSKELETAL: No joint swelling. NEUROLOGIC: Awake, alert, oriented times three. No focal deficit. LYMPHATIC: No lymph nodes palpable. SKIN: Intact. LABS: WBC 6.86, hgb 10.7, hct 31.9, plt count 130, sodium 134, potassium 3.8, chloride 100, bicarb 24, BUN 14, creatinine 0.51 and glucose 95%. ASSESSMENT: 1. Rectal bleed with dropped hgb 2. Constipation 3. Cerebral palsy 4. PATIENT EXPERIENCE COORDINATOR shunt 5. Restrictive lung disease 6. Depression 7. GERD PLAN: 1. Will get a KUB 2. Continue to monitor the H&H 3. Breathing treatments Will follow the patient in daily rounds. TIME SPENT: More than 35 minutes MTDD
--- NOTE | 2018-04-23 12:45 | DS ---
DATE OF SERVICE: 03/10/18 FINAL DIAGNOSIS: 1. RECTAL BLEEDING, HEMOGLOBIN STABLE 2. CONSTIPATION 3. RESTRICTIVE LUNG DISEASE 4. VENTRICULOPERITONEAL SHUNT 5. CEREBRAL PALSY 6. CONTRACTURES IN UPPER AND LOWER EXTREMITIES DISCHARGE INSTRUCTIONS: Followup appointment with Dr. Patterson within 5 to 7 days. MEDICATIONS AT DISCHARGE: Continue mineral oil Celexa Hydrocortisone Carbatrol Depakote Miralax Depakote sprinkle Duoneb NEW PRESCRIPTIONS: None DIET INSTRUCTIONS: Resume diet as tolerated ACTIVITY: Resume daily activity as tolerated. DISEASE SPECIFIC EDUCATION: Rectal bleeding and hemoglobin dropping, needing colonoscopy discussed, verbalized understanding. HOSPITAL COURSE: This is a 42-year-old female with a history of cerebral palsy, status post ventriculoperitoneal shunt has been having rectal bleeding. The patient's family were worried and brought the patient to the office, admitted directly. Hemoglobin initially was 12.3 and we did the KUB. No evidence of bowel obstruction, left lower lobe lung infiltrate. No significant colonic stool was seen. Continue to monitor H & H drop from 12.3 to 10.6. BUN and creatinine were normal. As the patient was tolerating things well, did not have any complications during the hospital. Miralax was given. The patient was having regular bowel movements and as per the mother they were soft bowel movements. At that time, the patient was discharged home. Hemoglobin has been steady. TIME SPENT: MORE THAN 65 MINUTES MTDD
== END 2018-03-10 17:19 | disposition home or self-care (01) | DRG 392 ==
LOC: MEDSURG A 15:30
PROVIDERS: ADMIT Emergency Medicine; ATTEND Emergency Medicine
DX: K59.00 Constipation, unspecified (principal); J98.4 Other disorders of lung; G80.9 Cerebral palsy, unspecified; F32.9 Major depressive disorder, single episode, unspecified; Z98.2 Presence of cerebrospinal fluid drainage device
CPT/HCPCS: 36415; 80053; 85025; 94640; 99223; 99233; 99239

== ENCOUNTER 2018-03-25 12:26 | Outpatient (CLI) | payer OTHER | END 2018-03-25 12:27 | disposition home or self-care (01) | LOC: RHC-LAB 12:26 | PROVIDERS: ATTEND Emergency Medicine | DX: K62.5 Hemorrhage of anus and rectum (principal) | CPT/HCPCS: 36415; 85025 ==

== ENCOUNTER 2018-03-28 11:10 | Inpatient (IN) ==
[2018-03-28] MEDS ORDERED: DUONEB NEB PRN (11:56)
[2018-03-28] MEDS ORDERED: SODIUM CHLORIDE 500 ML IV SCH (12:00)
[2018-03-28 16:43] VITALS: BMI 13.6
--- NOTE | 2018-03-28 22:01 | ED.PDOC ---
Procedures - IV/Art Line Insertion Location: RT lower leg Type of Line: Peripheral IV Invasive Line/IV Catheter Gauge: 24 Number of Attempts: 1 Blood Return Positive: Yes Invasive Line/IV Flushes Without Difficulty: Yes Conscious Sedation - Pre-op Assessment Weight: 65 lb Surgical History: SHUNTS,HERNIA,CLUB FOOT,TENDON,HIP - Medical History Past Medical History: Seizures, Other Other History: CEREBRAL PALSY
[2018-03-28] MEDS: DIVALPROEX SODIUM 375 MG PO SCH (22:04)
[2018-03-28] MEDS: CARBAMAZEPINE 300 MG PO SCH (22:04)
[2018-03-28] MEDS: SODIUM CHLORIDE 1,000 ML IV SCH (23:39)
[2018-03-29] MEDS: MIRALAX PO SCH (08:24)
[2018-03-29] MEDS: CARBAMAZEPINE 300 MG PO SCH ×2 (08:25→22:11)
[2018-03-29] MEDS: DIVALPROEX SODIUM 250 MG PO SCH (08:25)
[2018-03-29] MEDS: CITALOPRAM HYDROBROMIDE 5 MG PO SCH (08:25)
[2018-03-29] MEDS: DIVALPROEX SODIUM 375 MG PO SCH (22:10)
[2018-03-29] MEDS: SODIUM CHLORIDE 1,000 ML IV SCH (22:29)
[2018-03-30] MEDS: DIVALPROEX SODIUM 250 MG PO SCH (09:27)
[2018-03-30] MEDS: CARBAMAZEPINE 300 MG PO SCH ×2 (09:27→22:57)
[2018-03-30] MEDS: MIRALAX PO SCH (09:28)
[2018-03-30] MEDS: CITALOPRAM HYDROBROMIDE 5 MG PO SCH (09:28)
[2018-03-30] MEDS: ANUCORT-HC RC SCH ×3 (09:28→22:54)
[2018-03-30] MEDS: SODIUM CHLORIDE 1,000 ML IV SCH (22:22)
[2018-03-30] MEDS: DIVALPROEX SODIUM 375 MG PO SCH (22:57)
[2018-03-31] MEDS: DIVALPROEX SODIUM 250 MG PO SCH (08:50)
[2018-03-31] MEDS: CITALOPRAM HYDROBROMIDE 5 MG PO SCH (08:51)
[2018-03-31] MEDS: CARBAMAZEPINE 300 MG PO SCH ×2 (08:51→21:34)
[2018-03-31] MEDS: MIRALAX PO SCH (08:52)
[2018-03-31] MEDS: ANUCORT-HC RC SCH ×2 (08:52→21:32)
[2018-03-31] MEDS: SODIUM CHLORIDE 1,000 ML IV SCH (21:33)
[2018-03-31] MEDS: DIVALPROEX SODIUM 375 MG PO SCH (21:34)
[2018-04-01 05:14] VITALS: BP 124/85; TEMP 97.9
[2018-04-01] MEDS: CITALOPRAM HYDROBROMIDE 5 MG PO SCH (10:04)
[2018-04-01] MEDS: DIVALPROEX SODIUM 250 MG PO SCH (10:08)
[2018-04-01] MEDS: CARBAMAZEPINE 300 MG PO SCH (10:09)
[2018-04-01] MEDS: MIRALAX PO SCH (10:10)
[2018-04-01] MEDS: ANUCORT-HC RC SCH (10:11)
--- NOTE | 2018-04-01 17:32 | PCM.HOSP ---
- Initial Hospital Care [id number] 70 Minutes Bedside ([id number]): 03/28 - Subsequent Care [id number] 35 Minutes per Day ([id number]): 03/29/. 03/30. 03/31 - Hospital Discharge [id number] More than 30 Minutes ([id number]): 04/01
--- NOTE | 2018-04-03 14:57 | DS ---
DATE OF SERVICE: 04/01/18 FINAL DIAGNOSIS: 1. Rectal bleed 2. Anemia 3. History of restrictive lung disease 4. Headache 5. Dyslipidemia 6. Pneumonia 7. Rectal bleed with obstruction 8. Status post appendectomy 9. Cerebral palsy 10.History of left hip surgery 11.Status post stent 12.Status post tendon release feet and leg DISCHARGE INSTRUCTIONS: Discharge the patient home. Followup in the [facility] within 5-7 days. Continue the rest of the home medications. MEDICATIONS AT DISCHARGE: Celexa Carbamazepine Depakote Depakote DUO NEBS Miralax Hydrocortisone NEW PRESCRIPTIONS: Anucort twice a day rectal suppository DIET INSTRUCTIONS: Regular ACTIVITY: As tolerated DISEASE SPECIFIC EDUCATION: Rectal bleeding Hemorrhoids been discussed and verbalized understanding. HOSPITAL COURSE: JanuaryTarah 42 year old female was history of cerebral palsy, Quadriplegia been having the rectal bleeding lately most likely it was considered from the hemorrhoids but it sometime it bleeds so much that the patient gets almost 2-3 diapers changed. The patient's family worried so came to the office and been admitted to the hospital. Hgb initially was 12.4 dropped to 11.4 and 11.1. Kept having the blood with every other bowel movement and Anucort HC was started and with the given treatment gradually it felt like the Anucort was helping the patient. Hemorrhoids were seen which were not inflamed at this time. No pain. Discussed the case with the GI in the surgical department today and they are going to talk to Dr. Santana and see if he will be willing to do a scope while the patient being admitted to the hospital. As patient's hgb been stable and she is feeling good she is being discharged home today. TIME SPENT: MORE THAN 65 MINUTES MTDD
--- NOTE | 2018-04-03 15:12 | PN ---
DATE OF SERVICE: 03/31/18 SUBJECTIVE: The patient was admitted with rectal bleeding. The patient been started on the Anucort HC rectal suppository. Bleeding is slightly decreased. No abdominal or nausea. REVIEW OF SYSTEMS: CONSTITUTIONAL: No fever, no chills. HEENT: Normal. ENDOCRINE: No weight gain, no weight loss. CVS: No angina symptoms. No CHF symptoms. No palpitations. No atypical chest pain for CAD. No shortness of breath. No PND, no orthopnea. RESPIRATORY: No cough, no hemoptysis. GI: No nausea, no vomiting. No abdominal pain. : No hematuria. No polyuria. MUSCULOSKELETAL: No joint swelling. PSYCHIATRIC: Not anxious. No depression. No suicidal thoughts. No homicidal thoughts. SKIN: Intact. No rash. PHYSICAL EXAMINATION: V/S: Blood pressure 118/82, respiratory rate 20, heart rate 70, temperature 97.3 with saturation 99%. HEENT: Normocephalic, atraumatic. Mucosa dry. Pallor positive. No icterus. NECK: Supple. No JVD, no carotid bruit. No lymphadenopathy. LUNGS: Decreased entry. Clear to auscultation. No rales or rhonchi. HEART: S1, S2 normal. No S3. No murmur, gallop or regurgitation. ABDOMEN: Soft, nontender. Bowel sounds active. No rigidity. No rebound or guarding. No CVA tenderness. EXTREMITIES: No cyanosis, clubbing or pedal edema. Lower extremity contractures are present. MUSCULOSKELETAL: No joint swelling. NEUROLOGIC: Awake, alert, oriented times three. No focal deficit. LYMPHATIC: No lymph nodes palpable. SKIN: Intact. LABS: WBC 6.29, hgb 11.1, hct 32.8, plt count 146, Sodium 138, potassium 4.0, chloride 106, bicarb 23, BUN 9, creatinine 0.46 and glucose 104. ASSESSMENT: 1. Rectal bleed most like hemorrhoidal bleed 2. Restrictive lung disease 3. Cerebral palsy 4. Seizure disorder, status post ventriculoperitoneal shunt PLAN: 1. Continue the rectal hydrocortisone suppository 2. Continue to monitor the H&H 3. Will discuss the case with the GI specialist, either Dr. Dela Cruz or Max. Went to talk to the Johana in the surgery department to request with Dr. Dela Cruz or Dr. Santana can do colonoscopy while the patient been admitted. She will be getting back to me in one day. TIME SPENT: More than 35 minutes VARINDER
--- NOTE | 2018-04-04 11:20 | PN ---
DATE OF SERVICE: 03/29/18 SUBJECTIVE: The patient was admitted with rectal bleeding. The patient had three bowel movements since admission and all had blood in it. Stool for occult blood test is positive. No abdominal pain, nausea or vomiting. REVIEW OF SYSTEMS: CONSTITUTIONAL: No fever, no chills. HEENT: Normal. ENDOCRINE: No weight gain, no weight loss. CVS: No angina symptoms. No CHF symptoms. No palpitations. No atypical chest pain for CAD. No shortness of breath. No PND, no orthopnea. RESPIRATORY: No cough, no hemoptysis. GI: No nausea, no vomiting. No abdominal pain. : No hematuria. No polyuria. MUSCULOSKELETAL: No joint swelling. PSYCHIATRIC: Not anxious. No depression. No suicidal thoughts. No homicidal thoughts. SKIN: Intact. No rash. PHYSICAL EXAMINATION: V/S: BP 144/82, respiratory rate 20, heart rate 110, temperature 97.6. HEENT: Normocephalic, atraumatic. Mucosa dry. Pallor positive. No icterus. NECK: Supple. No JVD, no carotid bruit. No lymphadenopathy. LUNGS: Decreased entry. Clear to auscultation. No rales or rhonchi. HEART: S1, S2 normal. No S3. No murmur, gallop or regurgitation. ABDOMEN: Soft, nontender. Bowel sounds active. No rigidity. No rebound or guarding. No CVA tenderness. EXTREMITIES: Contractures are present. No cyanosis, clubbing or pedal edema. MUSCULOSKELETAL: No joint swelling. NEUROLOGIC: Awake, alert. No focal deficit. LYMPHATIC: No lymph nodes palpable. SKIN: Intact. LABS: White count 4.69, hemoglobin 12.4, hematocrit 37.5, platelet count 160. Sodium 139, potassium 3.8, chloride 104, bicarb 24, BUN 12, creatinine 0.52, glucose 102. Occult blood test positive. ASSESSMENT: 1. RECTAL BLEED 2. HISTORY OF CEREBRAL PALSY 3. CONTRACTURES IN UPPER AND LOWER EXTREMITIES 4. SEIZURE DISORDER PLAN: 1. CBC today 2. H & H 3. Will do rectal examination in the evening and will try to communicate with the GI doctor to see if they can do the colonoscopy while the patient is in the hospital. TIME SPENT: More than 35 minutes today [facility]
--- NOTE | 2018-04-04 11:33 | PN ---
DATE OF SERVICE: 03/30/18 SUBJECTIVE: The patient is still having bloody bowel movements. Hemoglobin dropped from 12.5 to 11.4. No abdominal pain. No nausea or vomiting. REVIEW OF SYSTEMS: CONSTITUTIONAL: No fever, no chills. HEENT: Normal. ENDOCRINE: No weight gain, no weight loss. CVS: No angina symptoms. No CHF symptoms. No palpitations. No atypical chest pain for CAD. No shortness of breath. No PND, no orthopnea. RESPIRATORY: No cough, no hemoptysis. GI: No nausea, no vomiting. No abdominal pain. : No hematuria. No polyuria. MUSCULOSKELETAL: No joint swelling. PSYCHIATRIC: Not anxious. No depression. No suicidal thoughts. No homicidal thoughts. SKIN: Intact. No rash. PHYSICAL EXAMINATION: V/S: BP 108/72, respiratory rate 12, heart rate 78, temperature 98.2, saturation 97. HEENT: Normocephalic, atraumatic. Mucosa dry. Pallor positive. No icterus. NECK: Supple. No JVD, no carotid bruit. No lymphadenopathy. LUNGS: Decreased entry in both lungs. Clear to auscultation. No rales or rhonchi. HEART: S1, S2 normal. No S3. No murmur, gallop or regurgitation. ABDOMEN: Soft, nontender. Bowel sounds active. No rigidity. No rebound or guarding. No CVA tenderness. EXTREMITIES: Contractures in the upper and lower extremities. No cyanosis, clubbing or pedal edema. MUSCULOSKELETAL: No joint swelling. NEUROLOGIC: Awake, alert, oriented times three. No focal deficit. LYMPHATIC: No lymph nodes palpable. SKIN: Intact. LABS: Hemoglobin 11.4, hematocrit 34.5, platelet count 149. Sodium 139, potassium 3.8 , chloride 108, bicarb 22, BUN 11, creatinine 0.44. ASSESSMENT: 1. RECTAL BLEED MOST LIKELY HEMORRHOIDAL 2. ANEMIA 3. GERD 4. RESTRICTIVE LUNG DISEASE 5. CEREBRAL PALSY STATUS POST RETROPERITONEAL SHUNT 6. SEIZURE DISORDER 7. CONTRACTURES SEEN UPPER AND LOWER EXTREMITY PLAN: 1. Anucort rectal suppository 2. Continue to monitor the H & H 3. As the GI physician comes to the hospital on Saturday and Saturday, will try to ask them to do a scope and see if they can help. TIME SPENT: More than 35 minutes MTDD
== END 2018-04-01 13:18 | disposition home or self-care (01) | DRG 811 ==
LOC: MEDSURG A 11:10
PROVIDERS: ADMIT Emergency Medicine; ATTEND Emergency Medicine
DX: D64.9 Anemia, unspecified (principal); J18.9 Pneumonia, unspecified organism; K64.9 Unspecified hemorrhoids; R51 Headache; E78.5 Hyperlipidemia, unspecified; G80.9 Cerebral palsy, unspecified; D62 Acute posthemorrhagic anemia; K21.9 Gastro-esophageal reflux disease without esophagitis; J98.4 Other disorders of lung; G40.909 Epilepsy, unspecified, not intractable, without status epilepticus; M24.50 Contracture, unspecified joint
CPT/HCPCS: 36415; 80053; 82272; 85025; 87081

== ENCOUNTER 2018-11-16 13:54 | Emergency (ER) ==
[2018-11-16 14:03] VITALS: BP 144/89; TEMP 97; BMI 13.4
--- NOTE | 2018-11-16 14:35 | CT ---
Exam: CT of the brain without intravenous contrast. Comparison: 08/21/2017. Reason for exam: Near syncope. FINDINGS: No acute intracranial hemorrhage, mass effect, ventricular dilatation, or territorial infa rction. Similar appearing encephalomalacia in the occipital lobes. Left-sided inner ventricular cat heter is seen unchanged in position. There is incidental note of hyperostosis seen throughout the ca lvarium. No depressed calvarial fracture is seen. Impression: 1. No acute intracranial findings. 2. No significant interval change from previous imaging performed on 08/21/2017. 3. Ventricular catheters unchanged in position without evidence of ventriculomegaly.
--- NOTE | 2018-11-16 14:53 | ED.PDOC ---
General ED Provider: Dr. ROCIO FREIRE Chief Complaint: Altered Mental Status Stated Complaint: PT WAS DAZZED FOR A FEW SECONDS AT A [employer] FAMILY BECAME WORRIED ARRIVED AOX3 Time Seen by Physician: 14:00 Mode of Arrival: Stretcher Information Source: Family Exam Limitations: No limitations Primary Care Provider: [facility] Nursing and Triage Documentation Reviewed and Agree: Yes Does patient meet sepsis criteria?: No System Inflammatory Response Syndrome: Not Applicable Sepsis Protocol: For patient's 13 years and over: Temp is 96.8 and below OR 101 and greater Pulse >90 BPM Resp >20/minute Acutely Altered Mental Status Are patient's symptoms suggestive of a new infection, such as: -Pneumonia -Skin, Soft Tissue -Endocarditis -UTI -Bone, Joint Infection -Implantable Device -Acute Abdominal Infection -Wound Infection -Meningitis -Blood Stream Catheter Infection -Unknown Neurological Complaint Exam - Altered Mental Status Complaint/Exam Current Mental Status: Other Onset: Sudden Duration: A FEW SECONDS LESS THAN 15 Timing: Intermittent Episodes Lasting: Seconds Initial Severity: Mild Current Severity: None Eye Deviation Present: No Aggravating: Reports: None Alleviating: Reports: Spontaneous resolution Associated Signs and Symptoms: Denies: Dizziness, Weakness, Headache, Fever, Illness, Nuchal rigidity, Seizure, Nausea, Vomiting, Recently depressed, Trauma Related History: Reports: Similar episode Cardiac Risk Factors: Reports: None CVA Risk Factors: Reports: None Related Surgical History: Reports: None Carotid Bruit Present: No Glascow Coma Scale (see protocol): 15 Nystagmus Present: No Gag Reflex Present: No Meningeal Signs Positive: No Focal Weakness: Present: None Focal Sensory Loss: Present: None Gait: Normal Review of Systems - Review Of Systems Constitutional: Reports: No symptoms Eyes: Reports: No symptoms Ears, Nose, Mouth, Throat: Reports: No symptoms Respiratory: Reports: No symptoms Cardiac: Reports: No symptoms GI: Reports: No symptoms : Reports: No symptoms Musculoskeletal: Reports: No symptoms Skin: Reports: No symptoms Neurological: Reports: No symptoms Endocrine: Reports: No symptoms Hematologic/Lymphatic: Reports: No symptoms All Other Systems: Reviewed and Negative Past Medical History - Past Medical History Previously Healthy: Yes Endocrine: Reports: None Cardiovascular: Reports: None Respiratory: Reports: None Hematological: Reports: None Gastrointestinal: Reports: None Genitourinary: Reports: None Neuro/Psych: Reports: Seizure, Other (cerebral palsy ) Musculoskeletal: Reports: None Cancer: Reports: None Last Menstrual Period: hysterectomy Other Pertinent Past Medical History: mental Retardation - Surgical History General Surgical History: Reports: Other (SHUNTS,HERNIA,CLUB FOOT,TENDON,HIP) - Family History Family History: Reports: Unknown - Social History Smoking Status: Never smoker Hx Substance Use: No Alcohol Screening: None Physical Exam - Physical Exam Appearance: Well-appearing, No pain distress, Well-nourished Eyes: ANDREA, EOMI, Conjunctiva clear ENT: Ears normal, Nose normal, Oropharynx normal Respiratory: Airway patent, Breath sounds clear, Breath sounds equal, Respirations nonlabored Cardiovascular: RRR, Pulses normal, No rub, No murmur GI/: Soft, Nontender, No masses, Bowel sounds normal, No Organomegaly Musculoskeletal: Normal strength, ROM intact, No edema, No calf tenderness Skin: Warm, Dry, Normal color Neurological: Sensation intact, Motor intact, Reflexes intact, Cranial nerves intact, Alert, Oriented Psychiatric: Affect appropriate, Mood appropriate - NIH Stroke Scale 1a. Level of Consciousness: 0=Alert and keenly responsive 1b. Level of Consciousness Questions: 0=Answers correctly to two questions 1c. Level of Consciousness Commands: 0=Performs two tasks correctly 2. Best Gaze: 0=Normal 3. Visual: 0=No visual loss 4. Facial Palsy: 0=Normal 5a. Motor Left Arm: 0=No drift,arm holds 90 degrees for 10 sec., leg 30 degrees for 5 sec. 5b. Motor Right Arm: 0=No drift,arm holds 90 degrees for 10 sec., leg 30 degrees for 5 sec. 6a. Motor Left Le=No drift,arm holds 90 degrees for 10 sec., leg 30 degrees for 5 sec. 6b. Motor Right Le=No drift,arm holds 90 degrees for 10 sec., leg 30 degrees for 5 sec. 7. Limb Ataxia: 0=Absent 8. Sensory: 0=Normal 9. Best Language: 0=No aphasia 10. Dysarthria: 0=Normal 11. Extincion and Inattention: 0=Normal Stroke Scale Total: 0 Re-Evaluation - Re-Evaluation Time of Re-Evaluation: 14:54 Status: Improved Vital Signs Stable: Yes Pain Level: 0 Appearance: NAD Lungs: Clear Skin: Warm and Dry Neuro: Alert and Oriented X3 CV: RRR Physician Notification - Case Discussed Physician Notified: 0 Critical Care Note - Critical Care Note Total Time (mins): 0 Course - Course Orders, Labs, Meds: Lab Review 11/16/18 14:10 Influ A Molecular Assay Negative by naat Influ B Molecular Assay Negative by naat Orders Category Date Time Status FLU A/B MOLECULAR Stat LAB 11/16/18 14:03 Uncollected MOLECULAR GROUP A STREP Stat LAB 11/16/18 14:[address] HEAD W/O CONTRAST Stat RADS 11/16/18 14:04 Ordered Vital Signs: Temp Pulse Resp BP Pulse Ox 11/16/18 13:55 97 F L 126 H 16 144/89 H 99 Departure - Departure Time of Disposition: 14:54 Disposition: HOME SELF-CARE Discharge Problem: Altered mental status Altered mental status Qualifiers: Altered mental status type: unspecified Qualified Code(s): R41.82 - Altered mental status, unspecified Instructions: Altered Mental Status (ED) Condition: Good Pt referred to PMD for follow-up: Yes IPMP verified?: No Allergies/Adverse Reactions: Allergies chocolate flavor Allergy (Severe, Verified 11/16/18 14:06) Migraines Sulfa (Sulfonamide Antibiotics) Allergy (Severe, Verified 11/16/18 14:06) seizures Patient to notify drugstore azithromycin [From Zithromax] Allergy (Verified 11/16/18 14:06) clarithromycin [From Biaxin] Allergy (Verified 11/16/18 14:06) erythromycin base [Erythromycin Base] Allergy (Verified 11/16/18 14:06) morphine Allergy (Verified 11/16/18 14:06) propoxyphene HCl [From Darvon] Allergy (Verified 11/16/18 14:06) sucralfate [From Carafate] Adverse Reaction (Severe, Verified 11/16/18 14:06) seizures Proton Pump Inhibitors Adverse Reaction (Intermediate, Verified 11/16/18 14:06) leukopenia hydromorphone HCl [From Dilaudid] Adverse Reaction (Verified 11/16/18 14:06) Home Medications: Ambulatory Orders Carbamazepine [Carbatrol] 300 mg PO BID 05/11/13 Divalproex Sodium [Depakote Sprinkle] 250 mg PO QAM #1 cap.sprink 12/22/13 Divalproex Sodium [Depakote Sprinkle] 375 mg PO BEDTIME 11/04/14 Ipratropium/Albuterol Neb [Duoneb] 1 vial NEB TID PRN #90 vial.neb 01/25/18 Polyethylene Glycol 3350 [Miralax] 17 gm PO DAILY 03/25/18
== END 2018-11-16 15:04 | disposition home or self-care (01) ==
LOC: ED 13:54
DX: R41.82 Altered mental status, unspecified (principal)
CPT/HCPCS: 87502; 87651; 99283

== ENCOUNTER 2018-12-04 10:50 | Inpatient (IN) | payer OTHER ==
[2018-12-04] MEDS ORDERED: SODIUM CHLORIDE 1,000 ML IV SCH (11:00)
[2018-12-04 11:29] VITALS: BMI 13.5
[2018-12-04] MEDS ORDERED: TYLENOL 160 MG/5 ML PO PRN (11:50)
--- NOTE | 2018-12-04 12:02 | DI ---
EXAM: Single view of the chest. History: Cough. Comparison: Chest radiograph 01/20/2018 Findings: Evaluation is difficult due to patient positioning and rotation. Heart size is within nor mal limits. There is probably a left perihilar infiltrate but difficult to evaluate due to the rotat ion. Left central line seen in place. No appreciable pleural fluid and no pneumothorax. Visualized osseous structures unchanged. Impression: There is probably a left perihilar infiltrate but difficult to evaluate due to the rotat ion.
[2018-12-04] MEDS: SOLU-CORTEF 100 MG IVP SCH ×3 (13:24→21:37)
[2018-12-04] MEDS: ROCEPHIN 1 GM in SODIUM CHLORIDE 50 ML IV SCH (13:24)
[2018-12-04] MEDS: SODIUM CHLORIDE 1,000 ML IV SCH (13:24)
[2018-12-04] MEDS: XOPENEX 0.63 MG NEB SCH ×2 (14:00→20:04)
[2018-12-04] MEDS: ROBITUSSIN DM SYRUP PO SCH ×2 (15:00→21:37)
[2018-12-04] MEDS: CARBAMAZEPINE 300 MG PO SCH (21:38)
[2018-12-04] MEDS: DIVALPROEX SODIUM 375 MG PO SCH (21:39)
[2018-12-04] MEDS: ANUCORT-HC RC SCH (21:40)
[2018-12-05] MEDS: SODIUM CHLORIDE 1,000 ML IV SCH (02:25)
[2018-12-05] MEDS: XOPENEX 0.63 MG NEB SCH ×3 (04:54→19:45)
[2018-12-05] MEDS: SOLU-CORTEF 100 MG IVP SCH (05:06)
[2018-12-05] MEDS: ROBITUSSIN DM SYRUP PO SCH ×3 (05:06→20:46)
--- NOTE | 2018-12-05 09:01 | PCM.PROG ---
Attending Provider: ATTENDING PROVIDER: Dr. CRIS LEE DATE OF SERVICE: 12/05/18 SUBJECTIVE: This 43 year old WHITE/ F was hospitalized 12/04/18 with acute pneumonitis, fever and dehydration. Her condition has steadily improved with steroids and antibiotics. Appetite has improved. REVIEW OF SYSTEMS: CONSTITUTIONAL: No night sweats. No fatigue, malaise, lethargy. No fever or chills. HEENT: Eyes: No visual changes. No eye pain. No eye discharge. ENT: No runny nose. No epistaxis. No sinus pain. No odynophagia. No congestion. RESPIRATORY: Mild cough, no congestion. No hemoptysis. No shortness of breath. CARDIOVASCULAR: No angina symptoms. No CHF symptoms. No atypical chest pain for CAD. No palpitations. No orthopnea.. GASTROINTESTINAL: No abdominal pain. No nausea or vomiting. No diarrhea or constipation. No hematemesis. No hematochezia. Improved appetite. GENITOURINARY: No urgency. No frequency. No dysuria. No hematuria. No obstructive symptoms. No discharge. No pain. No significant abnormal bleeding. MUSCULOSKELETAL: No musculoskeletal pain; no joint swelling. NEUROLOGICAL: Awake, alert, oriented to time, place and person. No headache. No neck pain. No syncope. No seizures. No dizziness. PSYCHIATRIC: Not anxious. No depression. No suicidal thoughts. No homicidal thoughts. SKIN: No rash. No lesions. No wounds. ENDOCRINE: No unexplained weight loss. No weight gain. HEMATOLOGIC/LYMPHATIC: No anemia. No purpura. No petechiae. No prolonged or excessive bleeding. No palpable lymph nodes. PHYSICAL EXAMINATION: GENERAL: The patient is awake, alert and oriented, lying in bed in no distress. VITAL SIGNS: Temperature 98.5 F, Pulse 123, Respiratory Rate 18, BP 103/71, Pulse Ox 99% HEENT: Head normocephalic, atraumatic. Eyes: Extraocular muscles are intact. Pupils are equal, round and reactive to light and accommodation. Ears: No lesions. Nose appeared normal. Throat: No exudate or erythema. NECK: Supple. No JVD, no carotid bruit. No lymphadenopathy or thyromegaly. LUNGS: Few creps, dry. Percussion note normal. Chest symmetrical. No wheezing. Good air entry. HEART: S1, S2, no S3. No murmurs. No cyanosis or clubbing. No ascites. Pulses: Dorsalis pedis and posterior tibial pulses +1 to +2 both sides. ABDOMEN: Soft. Non-tender. Bowel sounds active. No CVA tenderness. No mass felt. EXTREMITIES: No edema. Full range of motion of all extremities, equal. NEUROLOGIC: No focal deficit. Cranial nerves II through XII are grossly intact. No headache, no double vision or headache. SKIN: Warm and dry. Intact. Turgor-better. LYMPHATIC: No palpable lymph nodes/no lymphedema. MUSCULOSKELETAL: Normal joints with no swelling. Muscle tone is normal. LAB REVIEW: 12/05/18 05:55 12/05/18 05:55 12/05/18 05:55: Sodium 138.0, Potassium 3.07 L, Chloride 106.2, Carbon Dioxide 21.5 L, Anion Gap 13.37, BUN 8.4, Creatinine 0.22 L, Estimated GFR (MDRD) 351.00 , BUN/Creatinine Ratio 38.18, Glucose 151.3 H, Calcium 8.20 L, Total Bilirubin 0.24, AST 17.5, ALT 10.7, Alkaline Phosphatase 62.0, Total Protein 6.85, Albumin 3.44 L, Globulin 3.41, Albumin/Globulin Ratio 1.00 12/05/18 05:55: WBC 14.06 H, RBC 3.56 L, Hgb 8.9 L, Hct 27.2 L D, MCV 76.4 L, MCH 25.0 L, MCHC 32.7, RDW Coeff of Pamela 15.5 H, Plt Count 186, Immature Gran % ( Auto) 0.4, Neut % (Auto) 88.0, Lymph % (Auto) 7.8 L, [place] % (Auto) 3.7, Eos % ( Auto) 0.0, Baso % (Auto) 0.1, Immature Gran # (Auto) 0.1, Neut # (Auto) 12.4 H, Lymph # (Auto) 1.1, [place] # (Auto) 0.5, Eos # (Auto) 0.0, Baso # (Auto) 0.0 12/04/18 21:53: Urine Color Yellow, Urine Clarity Clear, Urine pH 5.5, Ur Specific [place] 1.020, Urine Protein Trace, Urine Glucose (UA) 2+, Urine Ketones 1+, Urine Blood Trace-intact, Urine Nitrite Negative, Urine Bilirubin Negative, Urine Urobilinogen 0.2, Ur Leukocyte Esterase Negative, Urine Microscopic RBC 5-10, Urine Microscopic WBC 2-5, Ur Squamous Epith Cells 10-20, Urine Bacteria 1+, Urine Mucus Trace 12/04/18 12:05: Sodium 135.0, Potassium 4.00, Chloride 100.8, Carbon Dioxide 23.0, Anion Gap 15.20, BUN 9.5, Creatinine 0.27 L, Estimated GFR (MDRD) 277.00, BUN/Creatinine Ratio 35.18, Glucose 104.0, Calcium 9.00, Total Bilirubin 0.43, AST 24.4, ALT 11.8, Alkaline Phosphatase 73.8, Total Protein 7.85, Albumin 4.02 , Globulin 3.83, Albumin/Globulin Ratio 1.04 12/04/18 12:05: WBC 13.91 H, RBC 4.37, Hgb 10.9 L, Hct 34.6 L, MCV 79.2 L, MCH 24.9 L, MCHC 31.5 L, RDW Coeff of Pamela 16.0 H, Plt Count 227, Immature Gran % ( Auto) 0.7, Neut % (Auto) 79.9, Lymph % (Auto) 7.9 L, [place] % (Auto) 11.0 H, Eos % (Auto) 0.1, Baso % (Auto) 0.4, Immature Gran # (Auto) 0.1, Neut # (Auto) 11.1 H, Lymph # (Auto) 1.1, [place] # (Auto) 1.5, Eos # (Auto) 0.0, Baso # (Auto) 0.1 12/04/18 12:05: Valproic Acid 107.68 12/04/18 11:50: Influ A Molecular Assay Negative by naat, Influ B Molecular Assay Negative by naat ASSESSMENT: Please see below. 1. Pneumonitis/Bronchitis seems to be resolving. 2. Dehydration improved. PLAN: 1. Continue IV antibiotics and steroids Plan and coordination of the patient's care discussed in the presence of Childbirth Educator and nurse. SCRIBED BY: ZEYAD PETERSEN Dry Press Operator Helper scribed while in presence of service performed by Dr. CRIS LEE on 12/05/18 ([id number])
[2018-12-05] MEDS: POTASSIUM CHL 10% ORAL SOL PO SCH ×2 (10:02→17:26)
[2018-12-05] MEDS: ROCEPHIN 1 GM in SODIUM CHLORIDE 50 ML IV SCH (10:03)
[2018-12-05] MEDS: MIRALAX PO SCH (10:03)
[2018-12-05] MEDS: ANUCORT-HC RC SCH ×2 (10:04→20:47)
[2018-12-05] MEDS: CARBAMAZEPINE 300 MG PO SCH ×2 (10:04→20:46)
[2018-12-05] MEDS: DIVALPROEX SODIUM 250 MG PO SCH (10:05)
--- NOTE | 2018-12-05 13:31 | HP ---
DATE OF SERVICE: 12/04/18 REASON FOR HOSPITALIZATION/HISTORY OF PRESENT ILLNESS: The patient's coughing started yesterday, getting chocked. Fever started last night, max 100. Not wanting to eat. PAST MEDICAL HISTORY: PAST SURGICAL HISTORY: REVIEW OF SYSTEMS: CONSTITUTIONAL: Fever, Fatigue. HEENT: No sinus drainage, no sore throat. RESPIRATORY: Cough, no congestion. CARDIOVASCULAR: No atypical chest pain for coronary artery disease. No angina , CHF symptoms, palpitations or shortness of breath. GASTROINTESTINAL: No melena or abdominal pain. No GERD. Decreased appetite. GENITOURINARY: No hematuria, no prostatism, no polyuria. VICE PRESIDENT PHARMACY: No blackout, no dizziness, no headache, no double vision. MUSCULOSKELETAL: No osteoarthritis pain, no joint swelling. ENDOCRINE: No weight loss, no weight gain. SKIN: Not dry, no rash. PSYCHIATRIC: Not anxious, no depression, no suicidal thoughts, no homicidal thoughts. SOCIAL HISTORY: Marital Status: Single. Alcohol Usage: No. Tobacco Usage: No. FAMILY HISTORY: MEDICATIONS: Carbamazepine 300mg twice a day Depakote sprinkle 250mg PO QAM Depakote sprinkle 375mg PO bedtime Miralax daily Hydrocortisone Acetate 25mg one supp RC twice a day DUO NEBS three times a day PRN ALLERGIES: Biaxin Darvon Z-pack Morphine Erythromycin PHYSICAL EXAMINATION: V/S: Pulse 116, blood pressure 108/68, temperature 99.5, oxygen saturation 99%. GENERAL APPEARANCE: Oriented times three. HEENT: Normal. Tympanic membrane normal. No pharyngeal erythema NECK: No JVP, no bruits. RESPIRATORY:Decreased breath sounds. CARDIOVASCULAR: S1, S2, no S3, no murmurs. No cyanosis, clubbing. No ascites. GI/ABDOMEN: No tenderness. Bowel sounds are active. EXTREMITIES: edema, pulses +1, equal. VICE PRESIDENT PHARMACY: Deep tendon reflexes, sensory, motor and gait all normal. RECTAL: EGD [place]. He refused to do rectal exam. . ASSESSMENT: 1. Acute pneumonitis 2. Fever 3. Dehydration 4. Acute bronchitis 5. Dyslipidemia 6. Chronic constipation with hemorrhoids 7. Acute pharyngitis/bilateral conjunctivitis-resolved 8. History of pneumonia 9. Cerebral palsy-neuro yearly in [facility] 10.Seizure disorder 11.Ventricular pericardial shunt Dr. 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 Admit 2. Routine telemetry x24 hours 3. CBC and CMP today and daily 4. Rapid Flu A and B 5. Rapid strep 6. Chest x-ray 7. Ultrasound 8. Normal saline IV 100cc an hour 9. Rocephin 1 gram IV daily 10.Solu-Cortef 80mg IV Q 8 hours 11.Xopenex Nebs 0.63 three times a day scheduled 12.Tylenol liquids 160/5ml-7ml PO Q 4 hours PRN TIME SPENT: More than 70 minutes. MTDD
[2018-12-05] MEDS ORDERED: SOLU-CORTEF 100 MG IVP SCH (19:00)
[2018-12-05] MEDS: DIVALPROEX SODIUM 375 MG PO SCH (20:45)
[2018-12-06] MEDS: XOPENEX 0.63 MG NEB SCH ×3 (04:40→19:55)
[2018-12-06] MEDS: ROBITUSSIN DM SYRUP PO SCH ×3 (05:02→20:22)
[2018-12-06] MEDS ORDERED: PEDIAPRED 5 MG/5 ML SOL PO SCH (08:00)
[2018-12-06] MEDS: ROCEPHIN 1 GM in SODIUM CHLORIDE 50 ML IV SCH (08:19)
[2018-12-06] MEDS: POTASSIUM CHL 10% ORAL SOL PO SCH ×2 (08:19→17:18)
[2018-12-06] MEDS: MIRALAX PO SCH (08:20)
[2018-12-06] MEDS: ANUCORT-HC RC SCH ×2 (08:20→20:22)
[2018-12-06] MEDS: CARBAMAZEPINE 300 MG PO SCH ×2 (08:25→20:23)
[2018-12-06] MEDS: DIVALPROEX SODIUM 250 MG PO SCH (08:26)
[2018-12-06] MEDS: PEDIAPRED 5 MG/5 ML SOL PO SCH ×2 (08:50→17:17)
[2018-12-06] MEDS: DIVALPROEX SODIUM 375 MG PO SCH (20:23)
[2018-12-07] MEDS: ROBITUSSIN DM SYRUP PO SCH ×3 (04:44→20:53)
[2018-12-07] MEDS: XOPENEX 0.63 MG NEB SCH ×3 (04:48→20:05)
[2018-12-07] MEDS: PEDIAPRED 5 MG/5 ML SOL PO SCH ×2 (08:38→17:00)
[2018-12-07] MEDS: MIRALAX PO SCH (08:39)
[2018-12-07] MEDS: ROCEPHIN 1 GM in SODIUM CHLORIDE 50 ML IV SCH (08:39)
[2018-12-07] MEDS: CARBAMAZEPINE 300 MG PO SCH ×2 (08:40→20:52)
[2018-12-07] MEDS: DIVALPROEX SODIUM 250 MG PO SCH (08:40)
[2018-12-07] MEDS: POTASSIUM CHL 10% ORAL SOL PO SCH (08:40)
[2018-12-07] MEDS: ANUCORT-HC RC SCH ×2 (08:47→20:54)
[2018-12-07] MEDS: TYLENOL LIQUID 650 MG/20.3 ML PO PRN (09:43)
[2018-12-07] MEDS ORDERED: TESSALON PERLES PO PRN (11:10)
[2018-12-07] MEDS: DIVALPROEX SODIUM 375 MG PO SCH (20:52)
[2018-12-07] MEDS: TORADOL IVP PRN (20:53)
[2018-12-08] MEDS: ROBITUSSIN DM SYRUP PO SCH ×3 (05:02→20:26)
[2018-12-08] MEDS: XOPENEX 0.63 MG NEB SCH ×3 (05:10→19:45)
[2018-12-08] MEDS: MIRALAX PO SCH (08:44)
[2018-12-08] MEDS: DIVALPROEX SODIUM 250 MG PO SCH (08:45)
[2018-12-08] MEDS: PEDIAPRED 5 MG/5 ML SOL PO SCH ×2 (08:45→17:58)
[2018-12-08] MEDS: CARBAMAZEPINE 300 MG PO SCH ×2 (08:45→20:26)
[2018-12-08] MEDS: ROCEPHIN 1 GM in SODIUM CHLORIDE 50 ML IV SCH (08:45)
[2018-12-08] MEDS: ANUCORT-HC RC SCH ×2 (08:46→20:28)
[2018-12-08] MEDS: TORADOL IVP PRN ×2 (08:46→20:35)
--- NOTE | 2018-12-08 08:53 | PCM.PROG ---
Attending Provider: ATTENDING PROVIDER: Dr. CRIS LEE This patient is seen with Maria Castellanos, Nurse Practitioner. DATE OF SERVICE: 12/08/18 SUBJECTIVE: This 43 year old WHITE/ F was hospitalized 12/04/18. The patient is resting comfortably. She has been having bronchospasms and pleuritic type pain. She did not eat very well yesterday. REVIEW OF SYSTEMS: CONSTITUTIONAL: No night sweats. No fatigue, malaise, lethargy. No fever or chills. HEENT: Eyes: No visual changes. No eye pain. No eye discharge. ENT: No runny nose. No epistaxis. No sinus pain. No odynophagia. No congestion. RESPIRATORY: Cough and congestion. No hemoptysis. No shortness of breath. CARDIOVASCULAR: No angina symptoms. No CHF symptoms. No atypical chest pain for CAD. No palpitations. No orthopnea.. GASTROINTESTINAL: Diminished appetite. No abdominal pain. No nausea or vomiting. No diarrhea or constipation. No hematemesis. No hematochezia. GENITOURINARY: No urgency. No frequency. No dysuria. No hematuria. No obstructive symptoms. No discharge. No pain. No significant abnormal bleeding. MUSCULOSKELETAL: No musculoskeletal pain; no joint swelling. NEUROLOGICAL: Awake, alert, oriented to place and person. No headache. No neck pain. No syncope. No seizures. No dizziness. PSYCHIATRIC: Not anxious. No depression. No suicidal thoughts. No homicidal thoughts. SKIN: No rash. No lesions. No wounds. ENDOCRINE: No unexplained weight loss. No weight gain. HEMATOLOGIC/LYMPHATIC: No anemia. No purpura. No petechiae. No prolonged or excessive bleeding. No palpable lymph nodes. PHYSICAL EXAMINATION: GENERAL: The patient is awake, alert and oriented, lying in bed in no distress. VITAL SIGNS: Temperature 98.1 F, Pulse 83, Respiratory Rate 16, BP 119/79, Pulse Ox 98% HEENT: Head normocephalic, atraumatic. Eyes: Extraocular muscles are intact. Pupils are equal, round and reactive to light and accommodation. Ears: No lesions. Nose appeared normal. Throat: No exudate or erythema. NECK: Supple. No JVD, no carotid bruit. No lymphadenopathy or thyromegaly. LUNGS: Diminished breath sounds. Clear to auscultation. Percussion note normal. Chest symmetrical. HEART: S1, S2, no S3. No murmurs. No cyanosis or clubbing. No ascites. Pulses: Dorsalis pedis and posterior tibial pulses +1 to +2 both sides. ABDOMEN: Soft. Non-tender. Bowel sounds active. No CVA tenderness. No mass felt. EXTREMITIES: No edema. Full range of motion of all extremities, equal. NEUROLOGIC: No focal deficit. Cranial nerves II through XII are grossly intact. No headache, no double vision or headache. SKIN: Not dry. Intact. Turgor-normal. LYMPHATIC: No palpable lymph nodes/no lymphedema. MUSCULOSKELETAL: Normal joints with no swelling. Muscle tone is normal. LAB REVIEW: 12/08/18 05:00 12/08/18 05:00 12/08/18 05:00: Sodium 135.4, Potassium 4.17, Chloride 101.9, Carbon Dioxide 26.0, Anion Gap 11.67, BUN 13.9, Creatinine 0.29 L, Estimated GFR (MDRD) 255.00 , BUN/Creatinine Ratio 47.93, Glucose 93.1, Calcium 8.38 L, Total Bilirubin 0.31 , AST 25.6, ALT 9.8, Alkaline Phosphatase 61.2, Total Protein 7.01, Albumin 3.49 L, Globulin 3.52, Albumin/Globulin Ratio 0.99 12/08/18 05:00: WBC 8.46, RBC 3.83 L, Hgb 9.2 L, Hct 29.6 L, MCV 77.3 L, MCH 24.0 L, MCHC 31.1 L, RDW Coeff of Pamela 15.8 H, Plt Count 223, Neutrophils % ( Manual) 47.0, Lymphocytes % (Manual) 45.0, Monocytes % (Manual) 6.0, Basophils % (Manual) 2.0 H, Anisocytosis Not present 12/07/18 08:00: Sodium 135.1, Potassium 4.09, Chloride 103.0, Carbon Dioxide 25.3, Anion Gap 10.89, BUN 9.1, Creatinine 0.25 L, Estimated GFR (MDRD) 303.00, BUN/Creatinine Ratio 36.40, Glucose 94.2, Calcium 8.71, Total Bilirubin 0.28, AST 30.6, ALT 10.7, Alkaline Phosphatase 63.4, Total Protein 7.14, Albumin 3.56 , Globulin 3.58, Albumin/Globulin Ratio 0.99 12/07/18 08:00: WBC 9.83, RBC 3.72 L, Hgb 9.0 L, Hct 28.7 L, MCV 77.2 L, MCH 24.2 L, MCHC 31.4 L, RDW Coeff of Pamela 15.8 H, Plt Count 213, Immature Gran % ( Auto) 0.7, Neut % (Auto) 60.0, Lymph % (Auto) 29.2, [place] % (Auto) 9.9, Eos % ( Auto) 0.0, Baso % (Auto) 0.2, Immature Gran # (Auto) 0.1, Neut # (Auto) 5.9, Lymph # (Auto) 2.9, [place] # (Auto) 1.0, Eos # (Auto) 0.0, Baso # (Auto) 0.0 ASSESSMENT: 1. Pneumonitis/Bronchitis seems to be resolving. 2. Dehydration improved. 3. Pleuritic pain. PLAN: 1. Repeat chest x-ray. 2. Will add Pulmicort neb solution b.i.d. Plan and coordination of the patient's care discussed in the presence of Harness Rigger and nurse. CONDITION: Stable SCRIBED BY: ELIZABETH MENDEZ, Photographic Process Attendant scribed while in presence of service performed by Dr. Lee/Maria Castellanos APRN on 12/08/18 ([id number])
[2018-12-08] MEDS ORDERED: POTASSIUM CHL 10% ORAL SOL PO SCH (09:00)
--- NOTE | 2018-12-08 13:59 | DI ---
Exam: Single view of the chest. Comparison: 12/04/2018. Reason for exam: Perihilar infiltrate. FINDINGS: Increasing air space opacities are seen in the left hemithorax. Lines and tubes appear un changed. The right lung is clear. Impression: Increasing consolidations in the left hemithorax consistent with pneumonia. Image interpretation is limited by positioning.
[2018-12-08] MEDS: PULMICORT 0.25 MG/2 ML NEB SCH (18:07)
[2018-12-08] MEDS: DIVALPROEX SODIUM 375 MG PO SCH (20:26)
[2018-12-09] MEDS: PULMICORT 0.25 MG/2 ML NEB SCH ×2 (05:00→17:00)
[2018-12-09] MEDS: XOPENEX 0.63 MG NEB SCH ×3 (05:00→21:35)
[2018-12-09] MEDS: ROBITUSSIN DM SYRUP PO SCH ×3 (05:02→20:19)
--- NOTE | 2018-12-09 07:41 | PN ---
DATE OF SERVICE: 12/07/18 SUBJECTIVE: 43 year old white female hospitalized with acute pneumonitis/bronchitis. The patient's cough and congestion still persists but her appetite has improved. She is eating very satisfactory according to the parents. REVIEW OF SYSTEMS: CONSTITUTIONAL: No night sweats. No fatigue, malaise, lethargy. No fever or chills. HEENT: Eyes: No visual changes. No eye pain. No eye discharge. ENT: No runny nose. No epistaxis. No sinus pain. No sore throat. No odynophagia. No congestion. RESPIRATORY: Mild cough, no congestion. No hemoptysis. No shortness of breath. CARDIOVASCULAR: No angina symptoms. No CHF symptoms. No atypical chest pain for CAD. No palpitations. No PND. No orthopnea. GASTROINTESTINAL: No abdominal pain. No nausea or vomiting. No diarrhea or constipation. No hematemesis. No hematochezia. GENITOURINARY: No urgency. No frequency. No dysuria. No hematuria. No obstructive symptoms. No discharge. No pain. No significant abnormal bleeding. MUSCULOSKELETAL: No musculoskeletal pain; no joint swelling. NEUROLOGICAL: No headache. No neck pain. No syncope. No seizures. No dizziness. PSYCHIATRIC: Not anxious. No depression. No suicidal thoughts. No homicidal thoughts. SKIN: No rash. No lesions. No wounds. ENDOCRINE: No unexplained weight loss. No weight gain. HEMATOLOGIC/LYMPHATIC: No anemia. No purpura. No petechiae. No prolonged or excessive bleeding. No palpable lymph nodes. PHYSICAL EXAMINATION: VITAL SIGNS: Temperature 98, pulse 77, respiratory rate 17, blood pressure 123/ 80 and pulse ox 98%. HEENT: Head normocephalic, atraumatic. Eyes: Extraocular muscles are intact. Pupils are equal, round and reactive to light and accommodation. Ears: No lesions. Nose appeared normal. Throat: No exudate or erythema. NECK: Supple. No JVD, no carotid bruit. No lymphadenopathy or thyromegaly. LUNGS: Decreased breath sounds but clear to auscultation. Percussion note normal. Chest symmetrical. HEART: S1, S2, no S3. No murmurs. No cyanosis or clubbing. No ascites. Pulses: Dorsalis pedis and posterior tibial pulses +1 to +2 bilaterally. ABDOMEN: Soft. Nontender. Bowel sounds active. No CVA tenderness. No mass felt. EXTREMITIES: No edema. Full range of motion of all extremities, equal. NEUROLOGIC: No focal deficit. Cranial nerves II through XII are grossly intact. No headache, no double vision or headache. SKIN: Not dry. Intact. Turgor - normal. LYMPHATIC: No palpable lymph nodes/no lymphedema. MUSCULOSKELETAL: Normal joints with no swelling. Muscle tone is normal. LABS: hgb 9, hct 28, WBC 9,800 normal differential, creatinine 0.25, BUN 9 ASSESSMENT: 1. Acute pneumonitis/bronchitis seems to be resolving 2. Dehydration seems to be resolving 3. Anemia, stable. PLAN: 1. Continue NEBS, antibiotics, steroids 2. Encourage the patient to eat. TIME SPENT: More than 30 minutes. Plan and coordination of the patient's care discussed in the presence of nurse. VARINDER
--- NOTE | 2018-12-09 08:15 | PN ---
DATE OF SERVICE: 12/06/18 SUBJECTIVE: 43 year old white female hospitalized with pneumonitis, fever and dehydration. The patient's parents are in the room. She is looking alot better. According to them she is still coughing but eating a lot better. No distress. No wheezing audible. REVIEW OF SYSTEMS: CONSTITUTIONAL: No night sweats. No fatigue, malaise, lethargy. No fever or chills. HEENT: Eyes: No visual changes. No eye pain. No eye discharge. ENT: No runny nose. No epistaxis. No sinus pain. No sore throat. No odynophagia. No congestion. RESPIRATORY: No cough, no congestion. No hemoptysis. No shortness of breath. CARDIOVASCULAR: No angina symptoms. No CHF symptoms. No atypical chest pain for CAD. No palpitations. No PND. No orthopnea. GASTROINTESTINAL: No abdominal pain. No nausea or vomiting. No diarrhea or constipation. No hematemesis. No hematochezia. GENITOURINARY: No urgency. No frequency. No dysuria. No hematuria. No obstructive symptoms. No discharge. No pain. No significant abnormal bleeding. MUSCULOSKELETAL: No musculoskeletal pain; no joint swelling. NEUROLOGICAL: No headache. No neck pain. No syncope. No seizures. No dizziness. PSYCHIATRIC: Not anxious. No depression. No suicidal thoughts. No homicidal thoughts. SKIN: No rash. No lesions. No wounds. ENDOCRINE: No unexplained weight loss. No weight gain. HEMATOLOGIC/LYMPHATIC: No anemia. No purpura. No petechiae. No prolonged or excessive bleeding. No palpable lymph nodes. PHYSICAL EXAMINATION: VITAL SIGNS: Temperature 98.3, pulse 109, respiratory rate 20, blood pressure 123/84 and pulse ox 100%. HEENT: Head normocephalic, atraumatic. Eyes: Extraocular muscles are intact. Pupils are equal, round and reactive to light and accommodation. Ears: No lesions. Nose appeared normal. Throat: No exudate or erythema. NECK: Supple. No JVD, no carotid bruit. No lymphadenopathy or thyromegaly. LUNGS: Decreased breath sounds with mild wheezing. Clear to auscultation. Percussion note normal. Chest symmetrical. HEART: S1, S2, no S3. No murmurs. No cyanosis or clubbing. No ascites. Pulses: Dorsalis pedis and posterior tibial pulses +1 to +2 bilaterally. ABDOMEN: Soft. Nontender. Bowel sounds active. No CVA tenderness. No mass felt. EXTREMITIES: No edema. Full range of motion of all extremities, equal. NEUROLOGIC: No focal deficit. Cranial nerves II through XII are grossly intact. No headache, no double vision or headache. SKIN: Not dry. Intact. Turgor - normal. LYMPHATIC: No palpable lymph nodes/no lymphedema. MUSCULOSKELETAL: Normal joints with no swelling. Muscle tone is normal. LABS: Hgb 9.4, hct 29, WBC 11,000 normal differential, creatinine 0.25, BUN 12. ASSESSMENT: 1. Pneumonitis seems to be resolving 2. History of lung disease, will monitor that. PLAN: 1. Continue IV antibiotics, steroids, NEBS treatment 2. The patient's potassium is 3.4, will monitor that. CONDITION: Stable. Overall status improving. TIME SPENT: More than 30 minutes. Plan and coordination of the patient's care discussed in the presence of nurse. VARINDER
--- NOTE | 2018-12-09 08:37 | PCM.PROG ---
Attending Provider: ATTENDING PROVIDER: Dr. CRIS LEE DATE OF SERVICE: 12/09/18 SUBJECTIVE: This 43 year old WHITE/ F was hospitalized 12/04/18 with pneumonitis. The patient's clinical status improved as expected. The x-ray report doesn't correlate with it. The patient is afebrile. The patient is acting better and seems oriented to person and place. Mother is in the room. REVIEW OF SYSTEMS: CONSTITUTIONAL: No night sweats. No fatigue, malaise, lethargy. No fever or chills. HEENT: Eyes: No visual changes. No eye pain. No eye discharge. ENT: No runny nose. No epistaxis. No sinus pain. No odynophagia. No congestion. RESPIRATORY: No cough, no congestion. No hemoptysis. No shortness of breath. CARDIOVASCULAR: No angina symptoms. No CHF symptoms. No atypical chest pain for CAD. No palpitations. No orthopnea.. GASTROINTESTINAL: No abdominal pain. No nausea or vomiting. No diarrhea or constipation. No hematemesis. No hematochezia. GENITOURINARY: No urgency. No frequency. No dysuria. No hematuria. No obstructive symptoms. No discharge. No pain. No significant abnormal bleeding. MUSCULOSKELETAL: No musculoskeletal pain; no joint swelling. NEUROLOGICAL: Awake, alert, oriented to place and person. No headache. No neck pain. No syncope. No seizures. No dizziness. PSYCHIATRIC: Not anxious. No depression. No suicidal thoughts. No homicidal thoughts. SKIN: No rash. No lesions. No wounds. ENDOCRINE: No unexplained weight loss. No weight gain. HEMATOLOGIC/LYMPHATIC: No anemia. No purpura. No petechiae. No prolonged or excessive bleeding. No palpable lymph nodes. PHYSICAL EXAMINATION: GENERAL: The patient is awake, alert and oriented, lying in bed in no distress. VITAL SIGNS: Temperature 97.9 F, Pulse 113, Respiratory Rate 18, BP 137/90, Pulse Ox 97% HEENT: Head normocephalic, atraumatic. Eyes: Extraocular muscles are intact. Pupils are equal, round and reactive to light and accommodation. Ears: No lesions. Nose appeared normal. Throat: No exudate or erythema. NECK: Supple. No JVD, no carotid bruit. No lymphadenopathy or thyromegaly. LUNGS: Lungs are clear to auscultation with few wheeze, very mild with good air entry. Percussion note normal. Chest symmetrical. HEART: S1, S2, no S3. No murmurs. No cyanosis or clubbing. No ascites. Pulses: Dorsalis pedis and posterior tibial pulses +1 to +2 both sides. ABDOMEN: Soft. Non-tender. Bowel sounds active. No CVA tenderness. No mass felt. EXTREMITIES: No edema. Full range of motion of all extremities, equal. NEUROLOGIC: No focal deficit. Cranial nerves II through XII are grossly intact. No headache, no double vision or headache. SKIN: Warm and dry. Intact. Turgor-normal. LYMPHATIC: No palpable lymph nodes/no lymphedema. MUSCULOSKELETAL: Normal joints with no swelling. Muscle tone is normal. LAB REVIEW: 12/09/18 04:15 12/09/18 04:15 12/09/18 04:15: WBC 7.53, RBC 3.70 L, Hgb 9.1 L, Hct 28.8 L, MCV 77.8 L, MCH 24.6 L, MCHC 31.6 L, RDW Coeff of Pamela 15.8 H, Plt Count 239, Immature Gran % ( Auto) 4.2, Neut % (Auto) 51.5, Lymph % (Auto) 33.9, Long % (Auto) 9.7, Eos % ( Auto) 0.0, Baso % (Auto) 0.7, Immature Gran # (Auto) 0.3, Neut # (Auto) 3.9, Lymph # (Auto) 2.6, Long # (Auto) 0.7, Eos # (Auto) 0.0, Baso # (Auto) 0.1 12/09/18 04:15: Sodium 136.1, Potassium 5.56 H, Chloride 105.5, Carbon Dioxide 22.4, Anion Gap 13.76, BUN 19.0 H, Creatinine 0.25 L, Estimated GFR (MDRD) 303.00, BUN/Creatinine Ratio 76.00, Glucose 108.5 H, Calcium 8.52, Total Bilirubin 0.58, AST 32.2, ALT 10.5, Alkaline Phosphatase 44.2, Total Protein 6.92, Albumin 3.34 L, Globulin 3.58, Albumin/Globulin Ratio 0.93 ASSESSMENT: Pneumonitis improving with present management with steroids, nebs and antibiotics. PLAN: 1. Pulmicort added. 2. Stop potassium. Plan and coordination of the patient's care discussed in the presence of Test Analyst and nurse. CONDITION: Stable SCRIBED BY: ELIZABETH MENDEZ Header Set Up Operator scribed while in presence of service performed by Dr. CRIS LEE on 12/09/18 ([id number])
[2018-12-09] MEDS: CARBAMAZEPINE 300 MG PO SCH ×2 (09:07→20:21)
[2018-12-09] MEDS: DIVALPROEX SODIUM 250 MG PO SCH (09:07)
[2018-12-09] MEDS: ANUCORT-HC RC SCH ×2 (09:08→20:21)
[2018-12-09] MEDS: PEDIAPRED 5 MG/5 ML SOL PO SCH ×2 (09:08→16:44)
[2018-12-09] MEDS: MIRALAX PO SCH (09:08)
[2018-12-09] MEDS: ROCEPHIN 1 GM in SODIUM CHLORIDE 50 ML IV SCH (09:09)
[2018-12-09] MEDS: TYLENOL LIQUID 650 MG/20.3 ML PO PRN (12:45)
[2018-12-09] MEDS: TORADOL IVP PRN (20:21)
[2018-12-09] MEDS: DIVALPROEX SODIUM 375 MG PO SCH (20:21)
[2018-12-10] MEDS: XOPENEX 0.63 MG NEB SCH ×3 (04:45→20:00)
[2018-12-10] MEDS: PULMICORT 0.25 MG/2 ML NEB SCH ×2 (04:45→20:00)
[2018-12-10] MEDS: ROBITUSSIN DM SYRUP PO SCH ×3 (04:53→20:17)
[2018-12-10] MEDS: CARBAMAZEPINE 300 MG PO SCH ×2 (08:15→20:18)
[2018-12-10] MEDS: ANUCORT-HC RC SCH ×2 (08:15→20:17)
[2018-12-10] MEDS: DIVALPROEX SODIUM 250 MG PO SCH (08:16)
[2018-12-10] MEDS: MIRALAX PO SCH (08:16)
[2018-12-10] MEDS: PEDIAPRED 5 MG/5 ML SOL PO SCH ×2 (08:16→16:47)
[2018-12-10] MEDS: ROCEPHIN 1 GM in SODIUM CHLORIDE 50 ML IV SCH (08:22)
--- NOTE | 2018-12-10 08:38 | PCM.PROG ---
Attending Provider: ATTENDING PROVIDER: Dr. CRIS LEE This patient is seen with Maria Castellanos, Nurse Practitioner. DATE OF SERVICE: 12/10/18 SUBJECTIVE: This 43 year old WHITE/ F was hospitalized 12/04/18. The patient is lying in bed resting comfortably. She had a low grade temp yesterday. She is eating well. She has clinically shown some improvement; however, still has persistent cough. REVIEW OF SYSTEMS: CONSTITUTIONAL: No night sweats. No fatigue, malaise, lethargy. No fever or chills. HEENT: Eyes: No visual changes. No eye pain. No eye discharge. ENT: No runny nose. No epistaxis. No sinus pain. No odynophagia. No congestion. RESPIRATORY: Cough with expiratory wheeze. No hemoptysis. No shortness of breath. CARDIOVASCULAR: No angina symptoms. No CHF symptoms. No atypical chest pain for CAD. No palpitations. No orthopnea.. GASTROINTESTINAL: No abdominal pain. No nausea or vomiting. No diarrhea or constipation. No hematemesis. No hematochezia. GENITOURINARY: No urgency. No frequency. No dysuria. No hematuria. No obstructive symptoms. No discharge. No pain. No significant abnormal bleeding. MUSCULOSKELETAL: No musculoskeletal pain; no joint swelling. NEUROLOGICAL: Awake, alert, oriented to place and person. No headache. No neck pain. No syncope. No seizures. No dizziness. PSYCHIATRIC: Not anxious. No depression. No suicidal thoughts. No homicidal thoughts. SKIN: No rash. No lesions. No wounds. ENDOCRINE: No unexplained weight loss. No weight gain. HEMATOLOGIC/LYMPHATIC: No anemia. No purpura. No petechiae. No prolonged or excessive bleeding. No palpable lymph nodes. PHYSICAL EXAMINATION: GENERAL: The patient is awake, alert and oriented, lying in bed in no distress. VITAL SIGNS: Temperature 97.9 F, Pulse 113, Respiratory Rate 18, BP 135/87, Pulse Ox 96% HEENT: Head normocephalic, atraumatic. Eyes: Extraocular muscles are intact. Pupils are equal, round and reactive to light and accommodation. Ears: No lesions. Nose appeared normal. Throat: No exudate or erythema. NECK: Supple. No JVD, no carotid bruit. No lymphadenopathy or thyromegaly. LUNGS: Diminished breath sounds with expiratory wheeze. Percussion note normal. Chest symmetrical. HEART: S1, S2, no S3. No murmurs. No cyanosis or clubbing. No ascites. Pulses: Dorsalis pedis and posterior tibial pulses +1 to +2 both sides. ABDOMEN: Soft. Non-tender. Bowel sounds active. No CVA tenderness. No mass felt. EXTREMITIES: No edema. Full range of motion of all extremities, equal. NEUROLOGIC: No focal deficit. Cranial nerves II through XII are grossly intact. No headache, no double vision or headache. SKIN: Not dry. Intact. Turgor-normal. LYMPHATIC: No palpable lymph nodes/no lymphedema. MUSCULOSKELETAL: Normal joints with no swelling. Muscle tone is normal. LAB REVIEW: 12/10/18 04:15 12/10/18 04:15 12/10/18 04:15: WBC 9.02, RBC 3.74 L, Hgb 9.1 L, Hct 29.0 L, MCV 77.5 L, MCH 24.3 L, MCHC 31.4 L, RDW Coeff of Pamela 16.1 H, Plt Count 274, Immature Gran % ( Auto) 4.3, Neut % (Auto) 47.0, Lymph % (Auto) 37.7, Andrew % (Auto) 10.3 H, Eos % (Auto) 0.1, Baso % (Auto) 0.6, Immature Gran # (Auto) 0.4, Neut # (Auto) 4.2, Lymph # (Auto) 3.4, Andrew # (Auto) 0.9, Eos # (Auto) 0.0, Baso # (Auto) 0.1 12/10/18 04:15: Sodium 136.5, Potassium 4.19, Chloride 105.1, Carbon Dioxide 24.5, Anion Gap 11.09, BUN 20.0 H, Creatinine 0.28 L, Estimated GFR (MDRD) 265.00, BUN/Creatinine Ratio 71.42, Glucose 100.2, Calcium 8.61, Total Bilirubin 0.23, AST 14.9, ALT 9.5, Alkaline Phosphatase 61.4, Total Protein 6.93 , Albumin 3.56, Globulin 3.37, Albumin/Globulin Ratio 1.05 ASSESSMENT: 1. LEFT LOWER LOBE PNEUMONIA 2. PLEURITIC PAIN 3. PNEUMONITIS IMPROVING WITH PRESENT MANAGEMENT OF STEROIDS, NEBS AND ANTIBIOTICS PLAN: 1. Levaquin 250 mg IV once today and once tomorrow. 2. Increase Pediapred to t.i.d. for today. 3. D/C Rocephin. Plan and coordination of the patient's care discussed in the presence of Wireless Field Technician and nurse. CONDITION: STABLE SCRIBED BY: ELIZABETH MENDEZ Bisque Placer scribed while in presence of service performed by Dr. Lee/Maria Castellanos APRN on 12/10/18 ([id number])
[2018-12-10] MEDS: LEVAQUIN 250 MG in PREMIX 50 ML D5W 1 BAG IV SCH (08:57)
[2018-12-10] MEDS ORDERED: PEDIAPRED 5 MG/5 ML SOL PO ONE (12:00)
[2018-12-10] MEDS: TORADOL IVP PRN ×2 (13:02→21:07)
[2018-12-10] MEDS: DIVALPROEX SODIUM 375 MG PO SCH (20:17)
[2018-12-11] MEDS: XOPENEX 0.63 MG NEB SCH ×3 (04:55→21:03)
[2018-12-11] MEDS: PULMICORT 0.25 MG/2 ML NEB SCH ×2 (04:55→21:03)
[2018-12-11] MEDS: ROBITUSSIN DM SYRUP PO SCH ×3 (05:19→20:24)
[2018-12-11] MEDS: ANUCORT-HC RC SCH ×2 (08:21→20:25)
[2018-12-11] MEDS: CARBAMAZEPINE 300 MG PO SCH ×2 (08:21→20:25)
[2018-12-11] MEDS: MIRALAX PO SCH (08:21)
[2018-12-11] MEDS: DIVALPROEX SODIUM 250 MG PO SCH (08:22)
[2018-12-11] MEDS: PEDIAPRED 5 MG/5 ML SOL PO SCH ×2 (08:22→16:49)
[2018-12-11] MEDS: LEVAQUIN 250 MG in PREMIX 50 ML D5W 1 BAG IV SCH (08:31)
--- NOTE | 2018-12-11 09:29 | PCM.PROG ---
Attending Provider: ATTENDING PROVIDER: Dr. CRIS LEE This patient is seen with Maria Castellanos, Nurse Practitioner. DATE OF SERVICE: 12/11/18 SUBJECTIVE: This 43 year old WHITE/ F was hospitalized 12/04/18. Lying in bed resting comfortably. Hemoglobin down to 8.5 today which has fluctuated during hospital stay. Will do anemia profile. The patient is eating well. She is tolerating Levaquin. Encouraged to get up in her chair today. REVIEW OF SYSTEMS: CONSTITUTIONAL: Weakness. No night sweats. No fatigue, malaise, lethargy. No fever or chills. HEENT: Eyes: No visual changes. No eye pain. No eye discharge. ENT: No runny nose. No epistaxis. No sinus pain. No odynophagia. No congestion. RESPIRATORY: Cough. No hemoptysis. No shortness of breath. CARDIOVASCULAR: No angina symptoms. No CHF symptoms. No atypical chest pain for CAD. No palpitations. No orthopnea.. GASTROINTESTINAL: No abdominal pain. No nausea or vomiting. No diarrhea or constipation. No hematemesis. No hematochezia. GENITOURINARY: No urgency. No frequency. No dysuria. No hematuria. No obstructive symptoms. No discharge. No pain. No significant abnormal bleeding. MUSCULOSKELETAL: No musculoskeletal pain; no joint swelling. NEUROLOGICAL: Awake, alert, oriented to time, place and person. No headache. No neck pain. No syncope. No seizures. No dizziness. PSYCHIATRIC: Not anxious. No depression. No suicidal thoughts. No homicidal thoughts. SKIN: No rash. No lesions. No wounds. ENDOCRINE: No unexplained weight loss. No weight gain. HEMATOLOGIC/LYMPHATIC: No anemia. No purpura. No petechiae. No prolonged or excessive bleeding. No palpable lymph nodes. PHYSICAL EXAMINATION: GENERAL: The patient is awake, alert and oriented, lying in bed in no distress. VITAL SIGNS: Temperature 98.3 F, Pulse 97, Respiratory Rate 18, BP 127/81, Pulse Ox 100% HEENT: Head normocephalic, atraumatic. Eyes: Extraocular muscles are intact. Pupils are equal, round and reactive to light and accommodation. Ears: No lesions. Nose appeared normal. Throat: No exudate or erythema. NECK: Supple. No JVD, no carotid bruit. No lymphadenopathy or thyromegaly. LUNGS: Diminished breath sounds with expiratory rhonchi. Percussion note normal. Chest symmetrical. HEART: S1, S2, no S3. No murmurs. No cyanosis or clubbing. No ascites. Pulses: Dorsalis pedis and posterior tibial pulses +1 to +2 both sides. ABDOMEN: Soft. Non-tender. Bowel sounds active. No CVA tenderness. No mass felt. EXTREMITIES: No edema. Full range of motion of all extremities, equal. NEUROLOGIC: No focal deficit. Cranial nerves II through XII are grossly intact. No headache, no double vision or headache. SKIN: Not dry. Intact. Turgor-normal. LYMPHATIC: No palpable lymph nodes/no lymphedema. MUSCULOSKELETAL: Normal joints with no swelling. Muscle tone is normal. LAB REVIEW: 12/11/18 05:45 12/11/18 05:45 12/11/18 05:45: Sodium 135.6, Potassium 3.92, Chloride 104.2, Carbon Dioxide 23.2, Anion Gap 12.12, BUN 19.9 H, Creatinine 0.28 L, Estimated GFR (MDRD) 265.00, BUN/Creatinine Ratio 71.07, Glucose 105.7, Calcium 8.62, Total Bilirubin 0.33, AST 21.8, ALT 12.2, Alkaline Phosphatase 56.1, Total Protein 6.81, Albumin 3.44 L, Globulin 3.37, Albumin/Globulin Ratio 1.02 12/11/18 05:45: WBC 8.66, RBC 3.52 L, Hgb 8.5 L, Hct 27.7 L, MCV 78.7 L, MCH 24.1 L, MCHC 30.7 L, RDW Coeff of Pamela 16.4 H, Plt Count 277, Immature Gran % ( Auto) 4.3, Neut % (Auto) 45.5, Lymph % (Auto) 37.9, Martin % (Auto) 11.7 H, Eos % (Auto) 0.1, Baso % (Auto) 0.5, Immature Gran # (Auto) 0.4, Neut # (Auto) 4.0, Lymph # (Auto) 3.3, Martin # (Auto) 1.0, Eos # (Auto) 0.0, Baso # (Auto) 0.0 ASSESSMENT: 1. LEFT LOWER LOBE PNEUMONIA 2. PLEURITIC PAIN 3. PNEUMONITIS IMPROVING WITH PRESENT MANAGEMENT OF STEROIDS, NEBS AND ANTIBIOTICS PLAN: 1. D/C Toradol. 2. Start Poly-Vi-Dara 3. Encouraged to be up in chair today 4. Anemia profile Plan and coordination of the patient's care discussed in the presence of Vest Tailor and nurse. CONDITION: Stable SCRIBED BY: ELIZABETH MENDEZ Service Center Assistant scribed while in presence of service performed by Dr. Lee/Maria Castellanos APRN on 12/11/18 ([id number])
--- NOTE | 2018-12-11 12:09 | PN ---
DATE OF SERVICE: 12/10/18 SUBJECTIVE: The patient was seen and examined with the nurse practitioner. The patient's condition is stable. Pneumonitis is improving. PHYSICAL EXAMINATION: HEENT: Head normocephalic, atraumatic. Eyes: Extraocular muscles are intact. Pupils are equal, round and reactive to light and accommodation. Ears: No lesions. Nose appeared normal. Throat: No exudate or erythema. NECK: Supple. No JVD, no carotid bruit. No lymphadenopathy or thyromegaly. LUNGS: Decreased breath sounds but clear to auscultation. Percussion note normal. Chest symmetrical. HEART: S1, S2, no S3. No murmurs. No cyanosis or clubbing. No ascites. Pulses: Dorsalis pedis and posterior tibial pulses +1 to +2 bilaterally. ABDOMEN: Soft. Nontender. Bowel sounds active. No CVA tenderness. No mass felt. EXTREMITIES: No edema. Full range of motion of all extremities, equal. NEUROLOGIC: No focal deficit. Cranial nerves II through XII are grossly intact. No headache, no double vision or headache. SKIN: Not dry. Intact. Turgor - normal. LYMPHATIC: No palpable lymph nodes/no lymphedema. MUSCULOSKELETAL: Normal joints with no swelling. Muscle tone is normal. The patient is stable. Continue the same management with antibiotics and steroids. TIME SPENT: More than 30 minutes. Plan and coordination of the patient's care discussed in the presence of nurse. VARINDER
--- NOTE | 2018-12-11 12:12 | PN ---
DATE OF SERVICE: 12/11/18 SUBJECTIVE: The patient was seen and examined with the nurse practitioner. The patient's condition is stable. She is eating better. Clinically she is alot better. PHYSICAL EXAMINATION: HEENT: Head normocephalic, atraumatic. Eyes: Extraocular muscles are intact. Pupils are equal, round and reactive to light and accommodation. Ears: No lesions. Nose appeared normal. Throat: No exudate or erythema. NECK: Supple. No JVD, no carotid bruit. No lymphadenopathy or thyromegaly. LUNGS: Decreased breath sounds but clear to auscultation. Percussion note normal. Chest symmetrical. HEART: S1, S2, no S3. No murmurs. No cyanosis or clubbing. No ascites. Pulses: Dorsalis pedis and posterior tibial pulses +1 to +2 bilaterally. ABDOMEN: Soft. Nontender. Bowel sounds active. No CVA tenderness. No mass felt. EXTREMITIES: No edema. Full range of motion of all extremities, equal. NEUROLOGIC: No focal deficit. Cranial nerves II through XII are grossly intact. No headache, no double vision or headache. SKIN: Not dry. Intact. Turgor - better. LYMPHATIC: No palpable lymph nodes/no lymphedema. MUSCULOSKELETAL: Normal joints with no swelling. Muscle tone is normal. The patient is stable. TIME SPENT: More than 30 minutes. Plan and coordination of the patient's care discussed in the presence of nurse. VARINDER
--- NOTE | 2018-12-11 12:14 | PN ---
CODING FOR BILLING 12/04/18 ADMISSION DAY LEVEL 5 12/05/18 INTERMEDIATE 12/06/18 INTERMEDIATE 12/07/18 INTERMEDIATE 12/08/18 INTERMEDIATE 12/09/18 INTERMEDIATE 12/10/18 INTERMEDIATE 12/11/18 DISCHARGE MTDD
[2018-12-11] MEDS: DIVALPROEX SODIUM 375 MG PO SCH (20:25)
[2018-12-12] MEDS: ROBITUSSIN DM SYRUP PO SCH ×2 (04:50→12:28)
[2018-12-12] MEDS: PULMICORT 0.25 MG/2 ML NEB SCH (05:09)
[2018-12-12] MEDS: XOPENEX 0.63 MG NEB SCH (05:09)
[2018-12-12 05:28] VITALS: BP 124/81; TEMP 97.2
[2018-12-12] MEDS: MIRALAX PO SCH (08:48)
[2018-12-12] MEDS: DIVALPROEX SODIUM 250 MG PO SCH (08:49)
[2018-12-12] MEDS: PEDIAPRED 5 MG/5 ML SOL PO SCH (08:49)
[2018-12-12] MEDS: ANUCORT-HC RC SCH (08:49)
[2018-12-12] MEDS: CARBAMAZEPINE 300 MG PO SCH (08:49)
[2018-12-12] MEDS: LEVAQUIN 250 MG in PREMIX 50 ML D5W 1 BAG IV SCH (08:50)
--- NOTE | 2018-12-12 08:58 | PCM.PROG ---
Attending Provider: ATTENDING PROVIDER: Dr. CRIS LEE This patient is seen with Maria Castellanos, Nurse Practitioner. DATE OF SERVICE: 12/12/18 SUBJECTIVE: This 43 year old WHITE/ F was hospitalized 12/04/18. The patient is resting comfortably. She is eating well. She was up and about yesterday. Cough improved. Will repeat CBC and chest x-ray today and anticipate possible discharge. REVIEW OF SYSTEMS: CONSTITUTIONAL: No night sweats. No fatigue, malaise, lethargy. No fever or chills. HEENT: Eyes: No visual changes. No eye pain. No eye discharge. ENT: No runny nose. No epistaxis. No sinus pain. No odynophagia. No congestion. RESPIRATORY: Cough. No congestion. No hemoptysis. No shortness of breath. CARDIOVASCULAR: No angina symptoms. No CHF symptoms. No atypical chest pain for CAD. No palpitations. No orthopnea.. GASTROINTESTINAL: No abdominal pain. No nausea or vomiting. No diarrhea or constipation. No hematemesis. No hematochezia. GENITOURINARY: No urgency. No frequency. No dysuria. No hematuria. No obstructive symptoms. No discharge. No pain. No significant abnormal bleeding. MUSCULOSKELETAL: No musculoskeletal pain; no joint swelling. NEUROLOGICAL: Awake, alert, oriented to time, place and person. No headache. No neck pain. No syncope. No seizures. No dizziness. PSYCHIATRIC: Not anxious. No depression. No suicidal thoughts. No homicidal thoughts. SKIN: No rash. No lesions. No wounds. ENDOCRINE: No unexplained weight loss. No weight gain. HEMATOLOGIC/LYMPHATIC: No anemia. No purpura. No petechiae. No prolonged or excessive bleeding. No palpable lymph nodes. PHYSICAL EXAMINATION: GENERAL: The patient is awake, alert and oriented, lying in bed in no distress. VITAL SIGNS: Temperature 97.2 F, Pulse 95, Respiratory Rate 20, BP 124/81, Pulse Ox 100% HEENT: Head normocephalic, atraumatic. Eyes: Extraocular muscles are intact. Pupils are equal, round and reactive to light and accommodation. Ears: No lesions. Nose appeared normal. Throat: No exudate or erythema. NECK: Supple. No JVD, no carotid bruit. No lymphadenopathy or thyromegaly. LUNGS: Diminished breath sounds. Clear to auscultation. Percussion note normal. Chest symmetrical. HEART: S1, S2, no S3. No murmurs. No cyanosis or clubbing. No ascites. Pulses: Dorsalis pedis and posterior tibial pulses +1 to +2 both sides. ABDOMEN: Soft. Non-tender. Bowel sounds active. No CVA tenderness. No mass felt. EXTREMITIES: No edema. Full range of motion of all extremities, equal. NEUROLOGIC: No focal deficit. Cranial nerves II through XII are grossly intact. No headache, no double vision or headache. SKIN: Not dry. Intact. Turgor-normal. LYMPHATIC: No palpable lymph nodes/no lymphedema. MUSCULOSKELETAL: Normal joints with no swelling. Muscle tone is normal. LAB REVIEW: 12/11/18 05:45 12/11/18 05:45 12/11/18 05:55: Transferrin 224 12/11/18 05:55: Iron 23.5 L, TIBC 283, % Saturation 8, Vitamin B12 808 12/11/18 05:55: Ferritin 35.50, Folate 15.30 12/11/18 05:46: Reticulocyte % (Auto) 2.60, Absolute Retic 0.0905, Retic Hgb Equivalent 29.4 ASSESSMENT: 1. LEFT LOWER LOBE PNEUMONIA 2. PLEURITIC PAIN 3. PNEUMONITIS IMPROVING WITH PRESENT MANAGEMENT OF STEROIDS, NEBS AND ANTIBIOTICS PLAN: 1. Repeat chest x-ray. 2. I would like Levaquin 250 mg given times 5 days. 3. Pediapred one teaspoon daily times 5 days. 4. Prescription for Pulmicort 0.5 mg at night. Plan and coordination of the patient's care discussed in the presence of Machine Maintenance Servicer and nurse. CONDITION: Stable SCRIBED BY: ELIZABETH MENDEZ Analytics Specialist scribed while in presence of service performed by Dr. Lee/Maria Castellanos APRN on 12/12/18 ([id number])
--- NOTE | 2018-12-12 09:46 | DI ---
EXAM: Single view of the chest. History: Cough. Comparison: Chest radiograph 12/08/2018 Findings: Heart size is stable. No significant interval change in the left basilar infiltrate and s mall left pleural effusion. No pneumothorax. Left-sided line again seen in place. No acute osseous abnormalities. Surgical clips are seen within the upper abdomen. Impression: No significant interval change in the left basilar pneumonia and small left pleural effu mona.
--- NOTE | 2018-12-12 11:34 | CM.DICTOOL ---
ADMISSION: 12/04/18 10:50 DISCHARGE: 12/12/18 DATE OF SERVICE: 12/12/18 FINAL DIAGNOSIS ACUTE PNEUMONITIS ANEMIA FEVER DEHYDRATION HYPOKALEMIA CEREBRAL PALSY SEIZURE DISORDER DYSLIPIDEMIA SEVERE CONSTIPATION WITH HEMORRHOIDS CAFETERIA COUNTER ATTENDANT SHUNT HYSTERECTOMY CLUB FEET TENDON RELEASE LEFT LEG APPENDECTOMY LEFT HIP PINNING LAST VITALS Temp Pulse Resp BP Pulse Ox 97.2 F L 95 H 20 124/81 100 12/12/18 05:27 12/12/18 05:27 12/12/18 05:51 12/12/18 05:27 12/12/18 05:27 TAKE THESE MEDICATIONS AT HOME Budesonide (Pulmicort 0.5 Mg/2 Ml) 1 vial NEB RTBEDTIME [facility] Last Admin: 12/12/18 05:09 Dose: 1 vial Hydrocortisone Acetate (Anucort-Hc) 1 supp RC BID [facility] Last Admin: 12/12/18 08:49 Dose: 1 supp Ipratropium/Albuterol neb (Duoneb) 1 vial NEB TID PRN Carbamazepine [Carbatrol] 300 mg PO BID [facility] Last Admin: 12/12/18 08:49 Dose: 300 mg Ciprofloxacin Suspension 250mg/5ml, 5 ml PO BID x5 DAYS Divalproex Sodium [Depakote Sprinkle] 250 mg PO QAM [facility] Last Admin: 12/12/18 08:49 Dose: 250 mg Divalproex Sodium [Depakote Sprinkle] 375 mg PO BEDTIME [facility] Last Admin: 12/11/18 20:25 Dose: 375 mg Polyethylene Glycol (Miralax) 17 gm PO DAILY [facility] Last Admin: 12/12/18 08:48 Dose: 17 gm Prednisolone Sodium Phosphate (Pediapred 15 Mg/5 Ml Dara) 15 mg PO DAILYWM X5 DAYS [facility] Last Admin: 12/12/18 08:49 Dose: 10 mg ALLERGIES chocolate flavor Allergy (Severe, Verified 11/16/18 14:06) Migraines Sulfa (Sulfonamide Antibiotics) Allergy (Severe, Verified 11/16/18 14:06) seizures azithromycin [From Zithromax] Allergy (Verified 11/16/18 14:06) clarithromycin [From Biaxin] Allergy (Verified 11/16/18 14:06) erythromycin base [Erythromycin Base] Allergy (Verified 11/16/18 14:06) morphine Allergy (Verified 11/16/18 14:06) propoxyphene HCl [From Darvon] Allergy (Verified 11/16/18 14:06) sucralfate [From Carafate] Adverse Reaction (Severe, Verified 11/16/18 14:06) seizures Proton Pump Inhibitors Adverse Reaction (Intermediate, Verified 11/16/18 14:06) leukopenia hydromorphone HCl [From Dilaudid] Adverse Reaction (Verified 11/16/18 14:06) NEW PRESCRIPTIONS: Budesonide [Pulmicort 0.5 mg/2 ml] 1 vial [facility] BEDTIME #30 [email or web address] 12/12/18 Ciprofloxacin 250 mg/5 ml PO BID 5 Days 12/12/18 Prednisolone 15 mg/5 ml PO DAILY 5 Days 12/12/18 (available at home from prior prescription) SMOKING: NONSMOKER DISEASE SPECIFIC EDUCATION: PNEUMONITIS DEHYDRATION FEVER ANEMIA CONSTIPATION HOME MEDICATIONS NEW PRESCRIPTIONS FOLLOW UP LAB REVIEW: 12/12/18 08:00 12/12/18 08:00 12/12/18 08:00: Sodium 134.7, Potassium 4.07, Chloride 102.0, Carbon Dioxide 25.4, Anion Gap 11.37, BUN 13.7, Creatinine 0.29 L, Estimated GFR (MDRD) 255.00 , BUN/Creatinine Ratio 47.24, Glucose 89.9, Calcium 8.82, Total Bilirubin 0.27, AST 32.9, ALT 12.6, Alkaline Phosphatase 62.0, Total Protein 7.07, Albumin 3.67 , Globulin 3.40, Albumin/Globulin Ratio 1.07 12/12/18 08:00: WBC 9.93, RBC 3.71 L, Hgb 8.9 L, Hct 28.9 L, MCV 77.9 L, MCH 24.0 L, MCHC 30.8 L, RDW Coeff of Pamela 16.5 H, Plt Count 323, Immature Gran % ( Auto) 4.2, Neut % (Auto) 39.2, Lymph % (Auto) 40.2, [place] % (Auto) 15.3 H, Eos % (Auto) 0.6, Baso % (Auto) 0.5, Immature Gran # (Auto) 0.4, Neut # (Auto) 3.9, Lymph # (Auto) 4.0 H, [place] # (Auto) 1.5, Eos # (Auto) 0.1, Baso # (Auto) 0.1 03/21/19 05:55: Transferrin 224 PLAN: DISCHARGE HOME TODAY, 12/12/[address] LEE/BRAYAN LOVE APRN, IN THE OFFICE ON 12/18/18 AT 10:45 A.M. RESUME YOUR HOME MEDICATIONS PER LIST PROVIDED BY THE NURSING STAFF DO NOT TAKE THE CEFDINIR (OMNICEF)-ANTIBIOTIC RESUME YOUR PEDIPRED (PREDNISOLONE SODIUM PHOSPHATE) 15 MG/5 ML; TAKE 5 ML (1 TEASPOON) BY MOUTH DAILY FOR 5 DAYS NEW PRESCRIPTIONS CIPRO 250 MG/5 ML; TAKE 5 ML (ONE TEASPOON) BY MOUTH TWICE DAILY FOR 5 DAYS BUDESONIDE (PULMICORT 0.5 MG/2 ML; ADMINISTER ONE BREATHING TREATMENT AT BEDTIME ACTIVITY GET PLENTY OF REST AT HOME. GRADUALLY INCREASE YOUR ACTIVITY LEVEL ACCORDING TO YOUR TOLERATION DIET TOLERATED SUMMARY THE PATIENT IS ALERT AND ORIENTED X3 WITH AN INTELLECTUAL DISABILITY. SHE CURRENTLY RESIDES AT HOME WITH HER PARENTS. SHE IS DEPENDENT ON OTHERS TO ASSIST WITH ADL'S DUE TO HER CEREBRAL PALSY. AT HOME SHE HAS A HOSPITAL BED, ELECTRIC WHEEL CHAIR, OVERHEAD LIFT AND A NEBULIZER. SHE AND HER PARENTS DESIRE THAT SHE RETURN HOME AT DISCHARGE. THE SKIN TURGOR IS INTACT. NUTRITIONAL AND HYDRATION STATUS ARE IMPROVED. THE PATIENT HAS BEEN ABLE TO BE OUT OF BED AND IN THE HALLS WITH USE OF HER WHEEL CHAIR AND HER MOTHER'S SUPERVISION. SHE IS FEELING BETTER AND CHEERFUL TODAY. THE PATIENT AND HER PARENTS ARE AWARE AND AGREEABLE FOR TODAY'S DISCHARGE PLANS CURRENT CODE STATUS FULL CODE BRAYAN LOVE APRN CRIS LEE M.D.
--- NOTE | 2018-12-12 11:41 | PN ---
DATE OF SERVICE: 12/12/18 SUBJECTIVE: The patient was seen and examined. The patient's condition is improving. The patient is clinically a lot better. She is breathing better. PHYSICAL EXAMINATION: HEENT: Head normocephalic, atraumatic. Eyes: Extraocular muscles are intact. Pupils are equal, round and reactive to light and accommodation. Ears: No lesions. Nose appeared normal. Throat: No exudate or erythema. NECK: Supple. No JVD, no carotid bruit. No lymphadenopathy or thyromegaly. LUNGS: The patient is breathing better. Clear to auscultation. Percussion note normal. Chest symmetrical. HEART: S1, S2, no S3. No murmurs. No cyanosis or clubbing. No ascites. Pulses: Dorsalis pedis and posterior tibial pulses +1 to +2 bilaterally. ABDOMEN: Soft. Nontender. Bowel sounds active. No CVA tenderness. No mass felt. EXTREMITIES: No edema. Full range of motion of all extremities, equal. NEUROLOGIC: No focal deficit. Cranial nerves II through XII are grossly intact. No headache, no double vision or headache. SKIN: Not dry. Intact. Turgor - normal. LYMPHATIC: No palpable lymph nodes/no lymphedema. MUSCULOSKELETAL: Normal joints with no swelling. Muscle tone is normal. ASSESSMENT: 1. Pneumonitis seems to have resolved. PLAN: 1. The patient will be discharged home. TIME SPENT: More than 30 minutes. The patient was seen and examined with the nurse practitioner. Plan and coordination of the patient's care discussed in the presence of nurse. VARINDER
--- NOTE | 2018-12-12 11:44 | PN ---
CODING FOR BILLIN12/04/18 ADMISSION DAY LEVEL 5 12/05/18 INTERMEDIATE 12/06/18 INTERMEDIATE 12/07/18 INTERMEDIATE 12/08/18 INTERMEDIATE 12/09/18 INTERMEDIATE 11/2018 INTERMEDIATE 12/11/18 INTERMEDIATE 12/12/18 DISCHARGE MTDD
--- NOTE | 2018-12-15 13:32 | DS ---
DATE OF SERVICE: 12/12/18 FINAL DIAGNOSIS: ACUTE PNEUMONITIS ANEMIA FEVER DEHYDRATION HYPOKALEMIA CEREBRAL PALSY SEIZURE DISORDER DYSLIPIDEMIA SEVERE CONSTIPATION WITH HEMORRHOIDS SENIOR BIOINFORMATICS SPECIALIST SHUNT HYSTERECTOMY CLUB FEET TENDON RELEASE LEFT LEG APPENDECTOMY LEFT HIP PINNING LAST VITALS: Temp Pulse Resp BP Pulse Ox 97.2 F L 95 H 20 124/81 100 12/12/18 05:27 12/12/18 05:27 12/12/18 05:51 12/12/18 05:27 12/12/18 05:27 DISCHARGE INSTRUCTIONS: DISCHARGE HOME TODAY, 12/12/18. RETURN TO SEE DR. LEE/BRAYAN LOVE APRN, IN THE OFFICE ON 12/18/18 AT 10:45 A.M. RESUME YOUR HOME MEDICATIONS PER LIST PROVIDED BY THE NURSING STAFF. DO NOT TAKE THE CEFDINIR (OMNICEF)-ANTIBIOTIC. RESUME YOUR PEDIPRED (PREDNISOLONE SODIUM PHOSPHATE) 15 MG/5 ML; TAKE 5 ML (1 TEASPOON) BY MOUTH DAILY FOR 5 DAYS. TAKE THESE MEDICATIONS AT HOME: Budesonide (Pulmicort 0.5 Mg/2 Ml) 1 vial NEB RTBEDTIME [facility] Hydrocortisone Acetate (Anucort-Hc) 1 supp RC BID [facility] Ipratropium/Albuterol neb (Duoneb) 1 vial NEB TID PRN Carbamazepine [Carbatrol] 300 mg PO BID [facility] Ciprofloxacin Suspension 250mg/5ml, 5 ml PO BID x5 DAYS Divalproex Sodium [Depakote Sprinkle] 250 mg PO QAM [facility] Divalproex Sodium [Depakote Sprinkle] 375 mg PO BEDTIME [facility] Polyethylene Glycol (Miralax) 17 gm PO DAILY [facility] Prednisolone Sodium Phosphate (Pediapred 15 Mg/5 Ml Dara) 15 mg PO DAILYWM X5 DAYS [facility] ALLERGIES: chocolate flavor Allergy (Severe, Verified 11/16/18 14:06) Sulfa (Sulfonamide Antibiotics) Allergy (Severe, Verified 11/16/18 14:06) azithromycin [From Zithromax] Allergy (Verified 11/16/18 14:06) clarithromycin [From Biaxin] Allergy (Verified 11/16/18 14:06) erythromycin base [Erythromycin Base] Allergy (Verified 11/16/18 14:06) morphine Allergy (Verified 11/16/18 14:06) propoxyphene HCl [From Darvon] Allergy (Verified 11/16/18 14:06) sucralfate [From Carafate] Adverse Reaction (Severe, Verified 11/16/18 14:06) Proton Pump Inhibitors Adverse Reaction (Intermediate, Verified 11/16/18 14:06) hydromorphone HCl [From Dilaudid] Adverse Reaction (Verified 11/16/18 14:06) NEW PRESCRIPTIONS: Budesonide [Pulmicort 0.5 mg/2 ml] 1 vial NEB BEDTIME #30 vial.neb 12/12/18 Ciprofloxacin 250 mg/5 ml PO BID 5 Days 12/12/18 Prednisolone 15 mg/5 ml PO DAILY 5 Days 12/12/18 (available at home from prior prescription) SMOKING: NONSMOKER DISEASE SPECIFIC EDUCATION: PNEUMONITIS DEHYDRATION FEVER ANEMIA CONSTIPATION HOME MEDICATIONS NEW PRESCRIPTIONS FOLLOW UP ACTIVITY: GET PLENTY OF REST AT HOME. GRADUALLY INCREASE YOUR ACTIVITY LEVEL ACCORDING TO YOUR TOLERATION DIET: TOLERATED HOSPITAL COURSE: 43 year old white female who was a direct admit from out office. She had been seen on 12/03 as outpatient in our office with cough, congestion and fever. She had a low grade temperature of 99. Her mom stated that she hadn't been eating. We started her on Omnicef liquid 250mg per 5 along with Prelone liquid 15mg per 5. The Omnicef was one teaspoon twice daily and the Prelone was one teaspoon twice daily as well. The following day her mother had called stating that her fever was up to 101. She was coughing until she vomited. She has a long history of recurrent pneumonia, poor posturing due to cerebral palsy also creates poor air movement so we admitted her. Chest x-ray showed questionable left lower lobe pneumonia. She ran fever for the first several days. Kidney function was slightly elevated showing dehydration and her Potassium was low at 3.3. Once admitted we placed her on Rocephin 1 gram IV daily along with IV Solu-Cortef at 80mg IV Q 8 hours. She remained on the Q 8 steroids for 2-3 days and we decreased her to Q 12 steroids. I placed her on oral antitussive therapy which did help. She was coughing until she vomited. Also placed on her Xopenex three times a day scheduled along with Pulmicort twice a day. After 4-5 days repeat chest x-ray was done. She had clinically improved but had started to run a slight fever at 99. It showed worsening of the left lower lobe so we placed her on Levaquin 250mg IV daily and discontinued the Rocephin. I did then place her on Prelone as her wheezing was better. Over the course of the next several days she has slowly improved. She is no longer having severe coughing spells where she is choking. Yesterday she got up in her wheelchair. She stated that her made her feel significantly better. Hgb initially was 10.1 with IV fluids that did drop to 8.4. IV fluids were stopped. Yesterday she was 8.5 and then anemia profile was done which showed chronic anemia. Today her hgb has improved at 8.9 so she is unable to tolerate iron. We will discuss later a possibility of a referral to a betting agency manager for chronic anemia but at this point she seems to be stable. She just underwent an EGD. The GI specialist did not feel that she was a candidate for colonoscopy due to her inability to due the prep and due to the cerebral palsy. She does have chronic constipation for which she uses Miralax daily. There is no source of acute blood loss. Today she has been eating well for the past 3-4 days and she has been sleeping well for the past 2 days. She is alert and oriented so we will send her home. It is unavailable to get liquid Levaquin so we will send her home on Cipro liquid 250mg per 5 one teaspoon twice a day for 5 days along with Prelone 15mg per 5 at home and she will take one teaspoon daily PO for 5 days. I am going to give her a prescription for Pulmicort NEB solution 0.5mg to do at bedtime as a maintain preventative medication as she does have recurrent bronchitis. She also has Xopenex NEB treatments at home which she is to continue. If there is any fever that returns she is to come to the office or to the emergency room. Her oxygen saturation is 100% on room air. Blood pressure is good and she will discharged today in stable condition. We will followup with her next week in the office. TIME SPENT: More than 60 minutes. VARINDER
== END 2018-12-12 13:14 | disposition home or self-care (01) | DRG 203 ==
LOC: MEDSURG B 10:50
PROVIDERS: ADMIT Internal Medicine; ATTEND Internal Medicine
DX: J20.9 Acute bronchitis, unspecified (principal); J02.9 Acute pharyngitis, unspecified; D64.9 Anemia, unspecified; G80.9 Cerebral palsy, unspecified; G40.909 Epilepsy, unspecified, not intractable, without status epilepticus; K59.00 Constipation, unspecified; H10.9 Unspecified conjunctivitis; E86.0 Dehydration; E87.6 Hypokalemia; E78.5 Hyperlipidemia, unspecified; R07.81 Pleurodynia; R50.9 Fever, unspecified
CPT/HCPCS: 36415; 80053; 80164; 81001; 82607; 82728; 82746; 83540; 83550; 84466; 85007; 85025; 85045; 87086; 87502; 87651; 93005; 93010; 94640

== ENCOUNTER 2019-03-03 15:49 | Outpatient (CLI) | END 2019-03-03 15:50 | disposition home or self-care (01) | LOC: LAB 15:49 | PROVIDERS: ATTEND Psychiatry & Neurology Neurology with Special Qualifications in Child Neurology | DX: G40.909 Epilepsy, unspecified, not intractable, without status epilepticus (principal) | CPT/HCPCS: 36415; 80164; 84450; 85027 ==

== ENCOUNTER 2019-03-16 10:49 | Inpatient (IN) ==
[2019-03-16] MEDS ORDERED: PHENERGAN WITH CODEINE 6.25/10 MG/5 ML PO PRN (11:17)
[2019-03-16 11:23] VITALS: BMI 13.7
[2019-03-16] MEDS ORDERED: XOPENEX 1.25 MG NEB SCH (14:00)
[2019-03-16] MEDS: XOPENEX 0.63 MG NEB SCH ×2 (14:14→20:10)
--- NOTE | 2019-03-16 16:02 | DI ---
EXAM: CHEST FRONTAL VIEW HISTORY: Acute pneumonitis, dehydration. COMPARISON: 12/12/2018 FINDINGS: Heart size upper limit normal. Venous access catheter ends over the cavoatrial junction. Patient is rotated. Density over the left base could represent atelectasis, pneumonia or scarring. No vascular congestion, pneumothorax or pleural fluid. IMPRESSION: 1. Density over the left base could represent scarring, atelectasis or pneumonia.
--- NOTE | 2019-03-16 16:13 | ED.PDOC ---
Procedures - IV/Art Line Insertion Location: lt forearm Invasive Line/IV Catheter Gauge: 22 Number of Attempts: 1 Conscious Sedation - Pre-op Assessment Weight: 65 lb 14.691 oz Surgical History: SHUNTS,HERNIA,CLUB FOOT,TENDON,HIP hysterectomy - Medical History Past Medical History: Seizures, Other Other History: CEREBRAL PALSY
[2019-03-16] MEDS: ROCEPHIN 1 GM VIAL 1 GM in SODIUM CHLORIDE 50 ML IV SCH (16:44)
[2019-03-16] MEDS: SODIUM CHLORIDE 1,000 ML IV SCH (16:44)
[2019-03-16] MEDS: SOLU-CORTEF 100 MG IVP SCH ×2 (16:45→21:50)
[2019-03-16] MEDS: PULMICORT 0.5 MG/2 ML NEB SCH (20:10)
[2019-03-16] MEDS: CARBAMAZEPINE 300 MG PO SCH (21:48)
[2019-03-16] MEDS: DIVALPROEX SODIUM 375 MG PO SCH (21:49)
[2019-03-16] MEDS: ANUCORT-HC RC SCH (21:50)
[2019-03-17] MEDS: XOPENEX 0.63 MG NEB SCH ×3 (04:28→20:10)
[2019-03-17] MEDS: PULMICORT 0.5 MG/2 ML NEB SCH ×3 (04:28→20:10)
[2019-03-17] MEDS: CARBAMAZEPINE 300 MG PO SCH ×2 (08:21→21:14)
[2019-03-17] MEDS: MONTELUKAST SODIUM 5 MG PO SCH (08:21)
[2019-03-17] MEDS: DIVALPROEX SODIUM 250 MG PO SCH (08:22)
[2019-03-17] MEDS: ANUCORT-HC RC SCH ×2 (08:23→21:15)
[2019-03-17] MEDS: MIRALAX PO SCH (08:23)
[2019-03-17] MEDS: ROCEPHIN 1 GM VIAL 1 GM in SODIUM CHLORIDE 50 ML IV SCH (08:24)
--- NOTE | 2019-03-17 09:37 | PCM.PROG ---
Attending Provider: ATTENDING PROVIDER: Dr. CRIS DRIVER This patient is seen with Maria Castellanos, Nurse Practitioner. DATE OF SERVICE: 03/17/19 SUBJECTIVE: This 43 year old WHITE/ F was hospitalized 03/16/19. The patient is resting comfortably. She is unable to give sputum for culture. Hgb is down from combination of hemodilution and iron deficiency anemia. The patient does have a history of bright red blood with bowel movement likely due to constipation. She has seen Dr. Tolbert. REVIEW OF SYSTEMS: CONSTITUTIONAL: No night sweats. No fatigue, malaise, lethargy. No fever or chills. Weakness. HEENT: Eyes: No visual changes. No eye pain. No eye discharge. ENT: No runny nose. No epistaxis. No sinus pain. No odynophagia. No congestion. RESPIRATORY: Cough, no congestion. No hemoptysis. No shortness of breath. CARDIOVASCULAR: No angina symptoms. No CHF symptoms. No atypical chest pain for CAD. No palpitations. No orthopnea.. GASTROINTESTINAL: No abdominal pain. No nausea or vomiting. No diarrhea or constipation. No hematemesis. No hematochezia. GENITOURINARY: No urgency. No frequency. No dysuria. No hematuria. No obstructive symptoms. No discharge. No pain. No significant abnormal bleeding. MUSCULOSKELETAL: No musculoskeletal pain; no joint swelling. NEUROLOGICAL: Awake, alert, oriented to time, place and person. No headache. No neck pain. No syncope. No seizures. No dizziness. PSYCHIATRIC: Not anxious. No depression. No suicidal thoughts. No homicidal thoughts. SKIN: No rash. No lesions. No wounds. ENDOCRINE: No unexplained weight loss. No weight gain. HEMATOLOGIC/LYMPHATIC: No anemia. No purpura. No petechiae. No prolonged or excessive bleeding. No palpable lymph nodes. PHYSICAL EXAMINATION: GENERAL: The patient is awake, alert and oriented, lying in bed in no distress. VITAL SIGNS: Temperature 98.2 F, Pulse 115, Respiratory Rate 20, BP 132/83, Pulse Ox 96% HEENT: Head normocephalic, atraumatic. Eyes: Extraocular muscles are intact. Pupils are equal, round and reactive to light and accommodation. Ears: No lesions. Nose appeared normal. Throat: No exudate or erythema. NECK: Supple. No JVD, no carotid bruit. No lymphadenopathy or thyromegaly. LUNGS: Diminished breath sounds with bilateral rhonchi. Clear to auscultation. Percussion note normal. Chest symmetrical. HEART: S1, S2, no S3. No murmurs. No cyanosis or clubbing. No ascites. Pulses: Dorsalis pedis and posterior tibial pulses +1 to +2 both sides. ABDOMEN: Soft. Non-tender. Bowel sounds active. No CVA tenderness. No mass felt. EXTREMITIES: No edema. Full range of motion of all extremities, equal. NEUROLOGIC: No focal deficit. Cranial nerves II through XII are grossly intact. No headache, no double vision or headache. SKIN: Not dry. Intact. Turgor-normal. LYMPHATIC: No palpable lymph nodes/no lymphedema. MUSCULOSKELETAL: Normal joints with no swelling. Muscle tone is normal. LAB REVIEW: 03/17/19 04:10 03/17/19 04:10 03/17/19 04:10: Sodium 137.7, Potassium 3.93, Chloride 104.6, Carbon Dioxide 22.4, Anion Gap 14.63, BUN 9.2, Creatinine 0.28 L, Estimated GFR (MDRD) 265.00, BUN/Creatinine Ratio 32.85, Glucose 122.6 H, Calcium 8.38 L, Total Bilirubin 0.24, AST 14.3, ALT 7.9, Alkaline Phosphatase 58.7, Total Protein 6.81, Albumin 3.67, Globulin 3.14, Albumin/Globulin Ratio 1.16 03/17/19 04:10: WBC 7.32, RBC 3.95 L, Hgb 8.2 L, Hct 27.7 L, MCV 70.1 L, MCH 20.8 L, MCHC 29.6 L, RDW Coeff of Pamela 17.8 H, Plt Count 293, Immature Gran % ( Auto) 1.6, Neut % (Auto) 79.5, Lymph % (Auto) 14.5, [place] % (Auto) 4.1, Eos % ( Auto) 0.0, Baso % (Auto) 0.3, Immature Gran # (Auto) 0.1, Neut # (Auto) 5.8, Lymph # (Auto) 1.1, [place] # (Auto) 0.3 L, Eos # (Auto) 0.0, Baso # (Auto) 0.0 03/16/19 11:43: Carbamazepine 12.5 H 03/16/19 11:43: Valproic Acid 81.92 03/16/19 11:43: Sodium 138.6, Potassium 3.85, Chloride 101.3, Carbon Dioxide 25.7, Anion Gap 15.45, BUN 9.6, Creatinine 0.30 L, Estimated GFR (MDRD) 245.00, BUN/Creatinine Ratio 32.00, Glucose 99.1, Calcium 9.16, Total Bilirubin 0.37, AST 20.5, ALT 10.1, Alkaline Phosphatase 67.8, Total Protein 7.63, Albumin 4.18 , Globulin 3.45, Albumin/Globulin Ratio 1.21 03/16/19 11:43: WBC 9.12, RBC 4.16 L, Hgb 8.7 L, Hct 28.8 L, MCV 69.2 L, MCH 20.9 L, MCHC 30.2 L, RDW Coeff of Pamela 17.5 H, Plt Count 312, Immature Gran % ( Auto) 1.2, Neut % (Auto) 47.5, Lymph % (Auto) 40.0, [place] % (Auto) 11.0 H, Eos % (Auto) 0.1, Baso % (Auto) 0.2, Immature Gran # (Auto) 0.1, Neut # (Auto) 4.3, Lymph # (Auto) 3.7 H, [place] # (Auto) 1.0, Eos # (Auto) 0.0, Baso # (Auto) 0.0, Hypochromasia 1+, Anisocytosis Not present, Microcytosis 1+ ASSESSMENT: Please see below. 1. Early left lower lobe pneumonia 2. Anemia 3. Cerebral palsy PLAN: 1. Anemia profile 2. Discontinue IV fluids 3. Will get iron supplements. Plan and coordination of the patient's care discussed in the presence of Electric Golf Cart Repairers and nurse. SCRIBED BY: Veronica WATERMANist scribed while in presence of service performed by Dr. Driver/Maria Castellanos APRN on 03/17/19 (1920)
[2019-03-17] MEDS: SOLU-CORTEF 100 MG IVP SCH ×2 (09:55→21:16)
[2019-03-17] MEDS: SODIUM CHLORIDE 1,000 ML IV SCH (10:00)
[2019-03-17] MEDS: FERROUS SULFATE PO SCH (13:10)
[2019-03-17] MEDS: DIVALPROEX SODIUM 375 MG PO SCH (21:14)
[2019-03-17] MEDS: TYLENOL LIQUID 650 MG/20.3 ML PO PRN (21:16)
[2019-03-18] MEDS: PULMICORT 0.5 MG/2 ML NEB SCH ×2 (04:28→20:05)
[2019-03-18] MEDS: XOPENEX 0.63 MG NEB SCH ×3 (04:28→20:05)
[2019-03-18] MEDS: DIVALPROEX SODIUM 250 MG PO SCH (09:14)
[2019-03-18] MEDS: CARBAMAZEPINE 300 MG PO SCH ×2 (09:14→20:01)
[2019-03-18] MEDS: ROCEPHIN 1 GM VIAL 1 GM in SODIUM CHLORIDE 50 ML IV SCH (09:14)
[2019-03-18] MEDS: MONTELUKAST SODIUM 5 MG PO SCH (09:14)
[2019-03-18] MEDS: SOLU-CORTEF 100 MG IVP SCH ×2 (09:15→20:00)
[2019-03-18] MEDS: MIRALAX PO SCH (09:16)
[2019-03-18] MEDS: ANUCORT-HC RC SCH ×2 (09:16→20:00)
[2019-03-18] MEDS: FERROUS SULFATE PO SCH (12:23)
[2019-03-18] MEDS: TYLENOL LIQUID 650 MG/20.3 ML PO PRN (13:47)
[2019-03-18] MEDS: DIVALPROEX SODIUM 375 MG PO SCH (20:01)
[2019-03-19] MEDS: XOPENEX 0.63 MG NEB SCH ×3 (04:25→20:30)
[2019-03-19] MEDS: PULMICORT 0.5 MG/2 ML NEB SCH ×2 (04:25→20:30)
--- NOTE | 2019-03-19 09:01 | PCM.PROG ---
Attending Provider: ATTENDING PROVIDER: Dr. CRIS LEE This patient is seen with Maria Castellanos, Nurse Practitioner. DATE OF SERVICE: 03/19/19 SUBJECTIVE: This 43 year old WHITE/ F was hospitalized 03/16/19. The patient is resting comfortably. Her appetite has improved. She is more alert this morning. The patient is feeling better. REVIEW OF SYSTEMS: CONSTITUTIONAL: No night sweats. No fatigue, malaise, lethargy. No fever or chills. Weakness. HEENT: Eyes: No visual changes. No eye pain. No eye discharge. ENT: No runny nose. No epistaxis. No sinus pain. No odynophagia. No congestion. RESPIRATORY: Cough, no congestion. No hemoptysis. No shortness of breath. CARDIOVASCULAR: No angina symptoms. No CHF symptoms. No atypical chest pain for CAD. No palpitations. No orthopnea.. GASTROINTESTINAL: No abdominal pain. No nausea or vomiting. No diarrhea or constipation. No hematemesis. No hematochezia. GENITOURINARY: No urgency. No frequency. No dysuria. No hematuria. No obstructive symptoms. No discharge. No pain. No significant abnormal bleeding. MUSCULOSKELETAL: No musculoskeletal pain; no joint swelling. NEUROLOGICAL: Awake, alert, oriented to time, place and person. No headache. No neck pain. No syncope. No seizures. No dizziness. PSYCHIATRIC: Not anxious. No depression. No suicidal thoughts. No homicidal thoughts. SKIN: No rash. No lesions. No wounds. ENDOCRINE: No unexplained weight loss. No weight gain. HEMATOLOGIC/LYMPHATIC: No anemia. No purpura. No petechiae. No prolonged or excessive bleeding. No palpable lymph nodes. PHYSICAL EXAMINATION: GENERAL: The patient is awake, alert and oriented, lying in bed in no distress. VITAL SIGNS: Temperature 98 F, Pulse 120, Respiratory Rate 20, BP 117/78, Pulse Ox 95% HEENT: Head normocephalic, atraumatic. Eyes: Extraocular muscles are intact. Pupils are equal, round and reactive to light and accommodation. Ears: No lesions. Nose appeared normal. Throat: No exudate or erythema. NECK: Supple. No JVD, no carotid bruit. No lymphadenopathy or thyromegaly. LUNGS: Diminished breath sounds, improved. Clear to auscultation. Percussion note normal. Chest symmetrical. HEART: S1, S2, no S3. No murmurs. No cyanosis or clubbing. No ascites. Pulses: Dorsalis pedis and posterior tibial pulses +1 to +2 both sides. ABDOMEN: Soft. Non-tender. Bowel sounds active. No CVA tenderness. No mass felt. EXTREMITIES: No edema. Full range of motion of all extremities, equal. NEUROLOGIC: No focal deficit. Cranial nerves II through XII are grossly intact. No headache, no double vision or headache. SKIN: Not dry. Intact. Turgor-normal. LYMPHATIC: No palpable lymph nodes/no lymphedema. MUSCULOSKELETAL: Normal joints with no swelling. Muscle tone is normal. LAB REVIEW: 03/19/19 05:00 03/19/19 05:00 03/19/19 05:00: Sodium 141.5, Potassium 3.95, Chloride 107.2 H, Carbon Dioxide 23.1, Anion Gap 15.15, BUN 15.9, Creatinine 0.30 L, Estimated GFR (MDRD) 245.00 , BUN/Creatinine Ratio 53.00, Glucose 113.4 H, Calcium 8.89, Total Bilirubin 0.28, AST 17.9, ALT 9.9, Alkaline Phosphatase 54.4, Total Protein 6.92, Albumin 3.85, Globulin 3.07, Albumin/Globulin Ratio 1.25 03/19/19 05:00: WBC 8.95, RBC 4.16 L, Hgb 8.4 L, Hct 30.0 L, MCV 72.1 L, MCH 20.2 L, MCHC 28.0 L, RDW Coeff of Pamela 18.9 H, Plt Count 224 D, Immature Gran % (Auto) 5.0, Neut % (Auto) 52.2, Lymph % (Auto) 33.0, [place] % (Auto) 9.2, Eos % ( Auto) 0.0, Baso % (Auto) 0.6, Immature Gran # (Auto) 0.5, Neut # (Auto) 4.7, Lymph # (Auto) 3.0, [place] # (Auto) 0.8, Eos # (Auto) 0.0, Baso # (Auto) 0.1, Hypochromasia 1+, Anisocytosis 1+ ASSESSMENT: Please see below. 1. Acute pneumonitis 2. Anemia, chronic PLAN: 1. Continue Rocephin times three days. Plan and coordination of the patient's care discussed in the presence of Check Out Cashier and nurse. SCRIBED BY: ZEYAD PETERSEN Undertaker Assistant scribed while in presence of service performed by Dr. Lee/Maria Castellanos APRN on 03/19/19 ([id number])
[2019-03-19] MEDS: ANUCORT-HC RC SCH ×2 (09:12→20:34)
[2019-03-19] MEDS: MONTELUKAST SODIUM 5 MG PO SCH (09:13)
[2019-03-19] MEDS: MIRALAX PO SCH (09:13)
[2019-03-19] MEDS: DIVALPROEX SODIUM 250 MG PO SCH (09:13)
[2019-03-19] MEDS: ROCEPHIN 1 GM VIAL 1 GM in SODIUM CHLORIDE 50 ML IV SCH (09:14)
[2019-03-19] MEDS: SOLU-CORTEF 100 MG IVP SCH ×2 (10:08→20:34)
[2019-03-19] MEDS: FERROUS SULFATE PO SCH (12:44)
--- NOTE | 2019-03-19 14:39 | HP ---
DATE OF SERVICE: 03/16/19 HISTORY OF PRESENT ILLNESS: 43-year-old White female presented with cough getting worse - thick - congested. Coughing until she vomits. PAST MEDICAL HISTORY: History of pneumonia Cerebral palsy Seizure disorder Chronic constipation with hemorrhoids Club feet PAST SURGICAL HISTORY: Tonsillectomy Hernia Shunt and revision Hip surgery, left, times two Tendon release Hiatal hernia REVIEW OF SYSTEMS: CONSTITUTIONAL: Fatigue. No fever. HEENT: Sinus drainage, sore throat. RESPIRATORY: Cough. No hemoptysis. CARDIOVASCULAR: No atypical chest pain for coronary artery disease. No angina , CHF symptoms, palpitations or shortness of breath. GASTROINTESTINAL: Decreased appetite. No melena or abdominal pain. No GERD. GENITOURINARY: No hematuria, no prostatism, no polyuria. 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 Gait - wheelchair. MUSCULOSKELETAL: No osteoarthritis pain, no joint swelling. ENDOCRINE: No weight loss, no weight gain. SKIN: Not dry, no rash. PSYCHIATRIC: Not anxious, no depression, no suicidal thoughts, no homicidal thoughts. SOCIAL HISTORY: Single. Nonsmoker. No alcohol use. FAMILY HISTORY: The patient is adopted. MEDICATIONS: Carbamazepine 300 mg b.i.d. Depakote sprinkle 125 mg capsule two a.m. and three p.m. Miralax daily Hydrocortisone acetate 25 mg suppository b.i.d. Duoneb t.i.d. p.r.n. Prednisone 10 mg b.i.d. Omnicef b.i.d. ALLERGIES: NEXIUM, CARAFATE, HYDROMORPHINE (FROM DILAUDID), BIAXIN, PROPOXYPHENE (FROM DARVON), Z-PACK, MORPHINE, ERYTHROMYCIN PHYSICAL EXAMINATION: V/S: Pulse 84, BP 108/58, temperature 98.1, 02 sat 100%. GENERAL APPEARANCE: Oriented times three. HEENT: Normal. NECK: No JVP, no bruits. RESPIRATORY: Decreased breath sounds, bilateral rhonchi. CARDIOVASCULAR: S1, S2, no S3, no murmurs. No cyanosis, clubbing. No ascites. GI/ABDOMEN: No tenderness. Bowel sounds are active. EXTREMITIES: No edema, pulses +1, equal. FLATBED OWNER OPERATOR: Deep tendon reflexes, sensory, motor normal. Gait: Wheelchair. RECTAL/PELVIC: Hysterectomy. LABS: White count 9.12, hemoglobin 8.7, hematocrit 28.8, MCV 69, MCH 20, platelets 312. Sodium 138, potassium 3.8, BUN 9.6, creatinine 0.3. AST 20, ALT 10, total protein 7.6. Depakote 81.92. ASSESSMENT: 1. ACUTE PNEUMONITIS 2. DEHYDRATION 3. ACUTE BRONCHITIS 4. ACUTE PHARYNGITIS 5. DYSLIPIDEMIA 6. CHRONIC CONSTIPATION WITH HEMORRHOIDS 7. HISTORY OF PNEUMONIA 8. CEREBRAL PALSY 9. SEIZURE DISORDER 10. HYSTERECTOMY 11. CLUB FEET 12. VENTRICULAR PERICARDIAL STENT - DR. KNOWLES PLAN: 1. CBC, CMP now and daily 2. NS IV @ 50 cc/hr 3. Rocephin 1 gm IV daily 4. Xopenex .021% t.i.d.s cheduled neb 5. Pulmicort 0.5 mg b.i.d. scheduled neb 6. Chest x-ray now 7. Continue home medications 8. Depakote/Tegretol level times one 9. Solu-Cortef 80 mg IV q.12h 10. Regular diet 11. Tylenol liquid two teaspoons p.r.n. p.o. 6hr 12. Sputum culture 13. Promethazine with Codeine syrup 1/2 teaspoon p.o. q.8h p.r.n. TIME SPENT: More than 70 minutes. MTDD
[2019-03-19] MEDS: TYLENOL LIQUID 650 MG/20.3 ML PO PRN (19:28)
[2019-03-19] MEDS: DIVALPROEX SODIUM 375 MG PO SCH (20:33)
[2019-03-20] MEDS: XOPENEX 0.63 MG NEB SCH ×3 (04:42→21:52)
[2019-03-20] MEDS: PULMICORT 0.5 MG/2 ML NEB SCH ×2 (04:42→21:52)
--- NOTE | 2019-03-20 08:41 | PCM.PROG ---
Attending Provider: ATTENDING PROVIDER: Dr. CRIS LEE This patient is seen with Maria Castellanos, Nurse Practitioner. DATE OF SERVICE: 03/20/19 SUBJECTIVE: This 43 year old WHITE/ F was hospitalized 03/16/19. The patient is resting comfortably. Cough is slowly improving. She did not eat very well yesterday. Seems to be tolerating iron once a day. We are awaiting Tegretol level. Held Tegretol yesterday and will restart it today. REVIEW OF SYSTEMS: CONSTITUTIONAL: No night sweats. No fatigue, malaise, lethargy. No fever or chills. Weakness. HEENT: Eyes: No visual changes. No eye pain. No eye discharge. ENT: No runny nose. No epistaxis. No sinus pain. No odynophagia. No congestion. RESPIRATORY: No cough, no congestion. No hemoptysis. No shortness of breath. CARDIOVASCULAR: No angina symptoms. No CHF symptoms. No atypical chest pain for CAD. No palpitations. No orthopnea.. GASTROINTESTINAL: No abdominal pain. No nausea or vomiting. No diarrhea or constipation. No hematemesis. No hematochezia. Decreased Appetite. GENITOURINARY: No urgency. No frequency. No dysuria. No hematuria. No obstructive symptoms. No discharge. No pain. No significant abnormal bleeding. MUSCULOSKELETAL: No musculoskeletal pain; no joint swelling. NEUROLOGICAL: Awake, alert, oriented to time, place and person. No headache. No neck pain. No syncope. No seizures. No dizziness. PSYCHIATRIC: Not anxious. No depression. No suicidal thoughts. No homicidal thoughts. SKIN: No rash. No lesions. No wounds. ENDOCRINE: No unexplained weight loss. No weight gain. HEMATOLOGIC/LYMPHATIC: No anemia. No purpura. No petechiae. No prolonged or excessive bleeding. No palpable lymph nodes. PHYSICAL EXAMINATION: GENERAL: The patient is awake, alert and oriented, lying in bed in no distress. VITAL SIGNS: Temperature 97.2 F, Pulse 93, Respiratory Rate 18, BP 134/76, Pulse Ox 98% HEENT: Head normocephalic, atraumatic. Eyes: Extraocular muscles are intact. Pupils are equal, round and reactive to light and accommodation. Ears: No lesions. Nose appeared normal. Throat: No exudate or erythema. NECK: Supple. No JVD, no carotid bruit. No lymphadenopathy or thyromegaly. LUNGS: Diminished breath sounds. Clear to auscultation. Percussion note normal. Chest symmetrical. HEART: S1, S2, no S3. No murmurs. No cyanosis or clubbing. No ascites. Pulses: Dorsalis pedis and posterior tibial pulses +1 to +2 both sides. ABDOMEN: Soft. Non-tender. Bowel sounds active. No CVA tenderness. No mass felt. EXTREMITIES: No edema. Full range of motion of all extremities, equal. NEUROLOGIC: No focal deficit. Cranial nerves II through XII are grossly intact. No headache, no double vision or headache. SKIN: Not dry. Intact. Turgor-normal. LYMPHATIC: No palpable lymph nodes/no lymphedema. MUSCULOSKELETAL: Normal joints with no swelling. Muscle tone is normal. LAB REVIEW: 03/20/19 05:00 03/20/19 05:00 03/20/19 05:00: Sodium 142.3, Potassium 3.71, Chloride 106.7, Carbon Dioxide 25.8, Anion Gap 13.51, BUN 16.4, Creatinine 0.31 L, Estimated GFR (MDRD) 236.00 , BUN/Creatinine Ratio 52.90, Glucose 114.7 H, Calcium 8.84, Total Bilirubin 0.24, AST 20.5, ALT 11.5, Alkaline Phosphatase 54.8, Total Protein 6.70, Albumin 3.83, Globulin 2.87, Albumin/Globulin Ratio 1.33 03/20/19 05:00: WBC 11.07 H, RBC 3.96 L, Hgb 8.2 L, Hct 28.1 L, MCV 71.0 L, MCH 20.7 L, MCHC 29.2 L, RDW Coeff of Pamela 18.6 H, Plt Count 353 D, Immature Gran % (Auto) 4.1, Neut % (Auto) 53.0, Lymph % (Auto) 32.2, [place] % (Auto) 10.5 H, Eos % (Auto) 0.0, Baso % (Auto) 0.2, Immature Gran # (Auto) 0.5, Neut # (Auto) 5.9, Lymph # (Auto) 3.6 H, [place] # (Auto) 1.2, Eos # (Auto) 0.0, Baso # (Auto) 0.0 ASSESSMENT: Please see below. 1. Acute pneumonitis 2. Anemia, chronic PLAN: 1. Continue IV antibiotics. Plan and coordination of the patient's care discussed in the presence of Salmon Troll Fisher and nurse. SCRIBED BY: Augusta WATERMAN scribed while in presence of service performed by Dr. Lee/Maria Castellanos APRN on 03/20/19 ([id number])
[2019-03-20] MEDS: DIVALPROEX SODIUM 250 MG PO SCH (09:11)
[2019-03-20] MEDS: MIRALAX PO SCH (09:11)
[2019-03-20] MEDS: ANUCORT-HC RC SCH ×2 (09:11→20:48)
[2019-03-20] MEDS: ROCEPHIN 1 GM VIAL 1 GM in SODIUM CHLORIDE 50 ML IV SCH (09:12)
[2019-03-20] MEDS: MONTELUKAST SODIUM 5 MG PO SCH (09:12)
[2019-03-20] MEDS: CARBAMAZEPINE 300 MG PO SCH ×2 (09:13→20:46)
[2019-03-20] MEDS: SOLU-CORTEF 100 MG IVP SCH ×2 (09:14→20:47)
[2019-03-20] MEDS: FERROUS SULFATE PO SCH (12:59)
[2019-03-20] MEDS: DIVALPROEX SODIUM 375 MG PO SCH (20:49)
[2019-03-21] MEDS: PULMICORT 0.5 MG/2 ML NEB SCH ×2 (04:26→20:05)
[2019-03-21] MEDS: XOPENEX 0.63 MG NEB SCH ×3 (04:26→20:05)
[2019-03-21] MEDS: DIVALPROEX SODIUM 250 MG PO SCH (08:14)
[2019-03-21] MEDS: MIRALAX PO SCH (08:15)
[2019-03-21] MEDS: ANUCORT-HC RC SCH ×2 (08:15→20:52)
[2019-03-21] MEDS: CARBAMAZEPINE 300 MG PO SCH ×2 (08:15→20:51)
[2019-03-21] MEDS: SOLU-CORTEF 100 MG IVP SCH ×2 (08:15→20:52)
[2019-03-21] MEDS: MONTELUKAST SODIUM 5 MG PO SCH (08:15)
[2019-03-21] MEDS: ROCEPHIN 1 GM/50 ML D5W 1 GM in PREMIX 50 ML D5W 1 BAG IV SCH (08:16)
[2019-03-21] MEDS: FERROUS SULFATE PO SCH (14:17)
[2019-03-21] MEDS: DIVALPROEX SODIUM 375 MG PO SCH (20:50)
[2019-03-22] MEDS: XOPENEX 0.63 MG NEB SCH ×3 (04:28→19:56)
[2019-03-22] MEDS: PULMICORT 0.5 MG/2 ML NEB SCH ×2 (04:28→19:56)
[2019-03-22] MEDS: ROCEPHIN 1 GM/50 ML D5W 1 GM in PREMIX 50 ML D5W 1 BAG IV SCH (08:43)
[2019-03-22] MEDS: ANUCORT-HC RC SCH ×2 (08:44→20:42)
[2019-03-22] MEDS: CARBAMAZEPINE 300 MG PO SCH ×2 (08:44→20:41)
[2019-03-22] MEDS: MONTELUKAST SODIUM 5 MG PO SCH (08:44)
[2019-03-22] MEDS: DIVALPROEX SODIUM 250 MG PO SCH (08:45)
[2019-03-22] MEDS: MIRALAX PO SCH (08:47)
[2019-03-22] MEDS: SOLU-CORTEF 100 MG IVP SCH ×2 (08:48→20:42)
[2019-03-22] MEDS: FERROUS SULFATE PO SCH (12:45)
[2019-03-22] MEDS: DIVALPROEX SODIUM 375 MG PO SCH (20:41)
[2019-03-23] MEDS: XOPENEX 0.63 MG NEB SCH (04:20)
[2019-03-23] MEDS: PULMICORT 0.5 MG/2 ML NEB SCH (04:20)
[2019-03-23 05:20] VITALS: BP 121/80; TEMP 98.4
--- NOTE | 2019-03-23 08:17 | PN ---
DATE OF SERVICE: 03/18/19 SUBJECTIVE: The patient is doing well. She has acute pneumonia. The patient is afebrile and appetite has improved. REVIEW OF SYSTEMS: CONSTITUTIONAL: No night sweats. No fatigue, malaise, lethargy. No fever or chills. HEENT: Eyes: No visual changes. No eye pain. No eye discharge. ENT: No runny nose. No epistaxis. No sinus pain. No sore throat. No odynophagia. No congestion. RESPIRATORY: No cough, no congestion. No hemoptysis. No shortness of breath. CARDIOVASCULAR: No angina symptoms. No CHF symptoms. No atypical chest pain for CAD. No palpitations. No PND. No orthopnea. GASTROINTESTINAL: No abdominal pain. No nausea or vomiting. No diarrhea or constipation. No hematemesis. No hematochezia. GENITOURINARY: No urgency. No frequency. No dysuria. No hematuria. No obstructive symptoms. No discharge. No pain. No significant abnormal bleeding. MUSCULOSKELETAL: No musculoskeletal pain; no joint swelling. NEUROLOGICAL: No headache. No neck pain. No syncope. No seizures. No dizziness. PSYCHIATRIC: Not anxious. No depression. No suicidal thoughts. No homicidal thoughts. SKIN: No rash. No lesions. No wounds. ENDOCRINE: No unexplained weight loss. No weight gain. HEMATOLOGIC/LYMPHATIC: No anemia. No purpura. No petechiae. No prolonged or excessive bleeding. No palpable lymph nodes. PHYSICAL EXAMINATION: VITAL SIGNS: Temperature 97.9, pulse 100, respiratory rate 14 and blood pressure 116/77 and pulse ox 96%. HEENT: Head normocephalic, atraumatic. Eyes: Extraocular muscles are intact. Pupils are equal, round and reactive to light and accommodation. Ears: No lesions. Nose appeared normal. Throat: No exudate or erythema. NECK: Supple. No JVD, no carotid bruit. No lymphadenopathy or thyromegaly. LUNGS:Decreased breath sounds but clear to auscultation. Percussion note normal. Chest symmetrical. HEART: S1, S2, no S3. No murmurs. No cyanosis or clubbing. No ascites. Pulses: Dorsalis pedis and posterior tibial pulses +1 to +2 bilaterally. ABDOMEN: Soft. Nontender. Bowel sounds active. No CVA tenderness. No mass felt. EXTREMITIES: No edema. Full range of motion of all extremities, equal. NEUROLOGIC: No focal deficit. Cranial nerves II through XII are grossly intact. No headache, no double vision or headache. SKIN: Not dry. Intact. Turgor - normal. LYMPHATIC: No palpable lymph nodes/no lymphedema. MUSCULOSKELETAL: Normal joints with no swelling. Muscle tone is normal. LABS: Hgb 8.7, hct 30, WBC 7,000 normal differential ASSESSMENT: 1. Acute pneumonia/bronchitis seems to be improving 2. Anemia, chronic PLAN: 1. Continue antibiotics 2. NEBS 3. Encourage the patient to eat. TIME SPENT: More than 30 minutes. Plan and coordination of the patient's care discussed in the presence of nurse. VARINDER
--- NOTE | 2019-03-23 08:19 | PN ---
DATE OF SERVICE: 03/19/19 SUBJECTIVE: The patient was seen and examined with the Nurse Practitioner. Continue antibiotic, breathing treatment. Her appetite has improved. Hgb and hct is stable. No evidence of active GI bleed. TIME SPENT: More than 30 minutes. Plan and coordination of the patient's care discussed in the presence of nurse. VARINDER
[2019-03-23] MEDS: CARBAMAZEPINE 300 MG PO SCH (08:28)
[2019-03-23] MEDS: DIVALPROEX SODIUM 250 MG PO SCH (08:28)
[2019-03-23] MEDS: MONTELUKAST SODIUM 5 MG PO SCH (08:28)
[2019-03-23] MEDS: SOLU-CORTEF 100 MG IVP SCH (08:29)
[2019-03-23] MEDS: MIRALAX PO SCH (08:29)
[2019-03-23] MEDS: ANUCORT-HC RC SCH (08:29)
--- NOTE | 2019-03-23 10:28 | PCM.PROG ---
Attending Provider: ATTENDING PROVIDER: Dr. CRIS LEE This patient is seen with Maria Castellanos, Nurse Practitioner. DATE OF SERVICE: 03/23/19 SUBJECTIVE: This 43 year old WHITE/ F was hospitalized 03/16/19. The patient is lying in bed resting comfortably. Cough improved. She has been eating well. Hemoglobin has improved and is ready for discharge home. She has liquid Omnicef and Prelone at home that she will finish. REVIEW OF SYSTEMS: CONSTITUTIONAL: No night sweats. No fatigue, malaise, lethargy. No fever or chills. HEENT: Eyes: No visual changes. No eye pain. No eye discharge. ENT: No runny nose. No epistaxis. No sinus pain. No odynophagia. No congestion. RESPIRATORY: Cough. No congestion. No hemoptysis. No shortness of breath. CARDIOVASCULAR: No angina symptoms. No CHF symptoms. No atypical chest pain for CAD. No palpitations. No orthopnea.. GASTROINTESTINAL: No abdominal pain. No nausea or vomiting. No diarrhea or constipation. No hematemesis. No hematochezia. GENITOURINARY: No urgency. No frequency. No dysuria. No hematuria. No obstructive symptoms. No discharge. No pain. No significant abnormal bleeding. MUSCULOSKELETAL: No musculoskeletal pain; no joint swelling. NEUROLOGICAL: Awake, alert, oriented to time, place and person. No headache. No neck pain. No syncope. No seizures. No dizziness. PSYCHIATRIC: Not anxious. No depression. No suicidal thoughts. No homicidal thoughts. SKIN: No rash. No lesions. No wounds. ENDOCRINE: No unexplained weight loss. No weight gain. HEMATOLOGIC/LYMPHATIC: No anemia. No purpura. No petechiae. No prolonged or excessive bleeding. No palpable lymph nodes. PHYSICAL EXAMINATION: GENERAL: The patient is awake, alert and oriented, lying/sitting in bed in no distress. VITAL SIGNS: Temperature 98.4 F, Pulse 114, Respiratory Rate 18, BP 121/80, Pulse Ox 99% HEENT: Head normocephalic, atraumatic. Eyes: Extraocular muscles are intact. Pupils are equal, round and reactive to light and accommodation. Ears: No lesions. Nose appeared normal. Throat: No exudate or erythema. NECK: Supple. No JVD, no carotid bruit. No lymphadenopathy or thyromegaly. LUNGS: Diminished breath sounds. Clear to auscultation. Percussion note normal. Chest symmetrical. HEART: S1, S2, no S3. No murmurs. No cyanosis or clubbing. No ascites. Pulses: Dorsalis pedis and posterior tibial pulses +1 to +2 both sides. ABDOMEN: Soft. Non-tender. Bowel sounds active. No CVA tenderness. No mass felt. EXTREMITIES: No edema. Full range of motion of all extremities, equal. NEUROLOGIC: No focal deficit. Cranial nerves II through XII are grossly intact. No headache, no double vision or headache. SKIN: Not dry. Intact. Turgor-normal. LYMPHATIC: No palpable lymph nodes/no lymphedema. MUSCULOSKELETAL: Normal joints with no swelling. Muscle tone is normal. LAB REVIEW: 03/23/19 04:59 03/23/19 04:59 03/23/19 04:59: Sodium 142.2, Potassium 4.08, Chloride 105.2, Carbon Dioxide 26.7, Anion Gap 14.38, BUN 15.6, Creatinine 0.34 L, Estimated GFR (MDRD) 212.00 , BUN/Creatinine Ratio 45.88, Glucose 113.1 H, Calcium 9.13, Total Bilirubin 0.28, AST 23.0, ALT 13.8, Alkaline Phosphatase 52.6, Total Protein 6.81, Albumin 4.02, Globulin 2.79, Albumin/Globulin Ratio 1.44 03/23/19 04:59: WBC 13.80 H, RBC 4.09 L, Hgb 8.5 L, Hct 29.3 L, MCV 71.6 L, MCH 20.8 L, MCHC 29.0 L, RDW Coeff of Pamela 21.0 H, Plt Count 295, Immature Gran % ( Auto) 1.4, Neut % (Auto) 69.9, Lymph % (Auto) 22.6, [place] % (Auto) 6.0, Eos % ( Auto) 0.0, Baso % (Auto) 0.1, Immature Gran # (Auto) 0.2, Neut # (Auto) 9.6 H, Lymph # (Auto) 3.1, [place] # (Auto) 0.8, Eos # (Auto) 0.0, Baso # (Auto) 0.0, Hypochromasia 1+, Anisocytosis 1+ 03/22/19 11:44: Sodium 142.4, Potassium 3.67, Chloride 106.6, Carbon Dioxide 25.1, Anion Gap 14.37, BUN 19.7 H, Creatinine 0.36 L, Estimated GFR (MDRD) 199.00, BUN/Creatinine Ratio 54.72, Glucose 114.1 H, Calcium 8.47, Total Bilirubin 0.19 L, AST 30.3, ALT 13.3, Alkaline Phosphatase 54.4, Total Protein 6.63, Albumin 3.85, Globulin 2.78, Albumin/Globulin Ratio 1.38 03/22/19 11:44: WBC 11.32 H, RBC 4.00 L, Hgb 8.5 L, Hct 28.7 L, MCV 71.8 L, MCH 21.3 L, MCHC 29.6 L, RDW Coeff of Pamela 20.6 H, Plt Count 317, Immature Gran % ( Auto) 1.9, Neut % (Auto) 84.0, Lymph % (Auto) 9.5 L, [place] % (Auto) 4.4, Eos % ( Auto) 0.0, Baso % (Auto) 0.2, Immature Gran # (Auto) 0.2, Neut # (Auto) 9.5 H, Lymph # (Auto) 1.1, [place] # (Auto) 0.5, Eos # (Auto) 0.0, Baso # (Auto) 0.0, Anisocytosis 1+, Microcytosis 1+, Ovalocytes 1+ ASSESSMENT: Please see below. 1. ACUTE PNEUMONITIS 2. ANEMIA, CHRONIC PLAN: 1. D/C home. 2. Nebs t.i.d. times two weeks and wean as tolerated. 3. To finish Omnicef at home. 4. Will see back in the office on the 30 of March. 5. Prescription for Iron to be taken daily. Plan and coordination of the patient's care discussed in the presence of [employer] and nurse. CONDITION: Stable SCRIBED BY: ELIZABETH MENDEZ Screw Down scribed while in presence of service performed by Dr. Lee/Maria Castellanos APRN on 03/23/19 (0800)
--- NOTE | 2019-03-23 12:46 | CM.DICTOOL ---
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 HYSTERECTOMY CLUB FEET TENDON RELEASE LEFT LEG APPENDECTOMY LEFT HIP PINNING LAST VITALS Temp Pulse Resp BP Pulse Ox 98.4 F 114 H 18 121/80 99 03/23/19 05:18 03/23/19 05:18 03/23/19 07:32 03/23/19 05:18 03/23/19 05:18 TAKE THESE MEDICATIONS AT HOME Ferrous Sulfate (Ferrous Sulfate) 5 ml PO 1300 [facility] Last Admin: 03/22/19 12:45 Dose: 5 ml Hydrocortisone Acetate (Anucort-Hc) 1 supp RC BID [facility] Last Admin: 03/23/19 08:29 Dose: 1 supp Non-Formulary Medication (Carbamazepine [Carbatrol]) 300 mg PO BID [facility] Last Admin: 03/23/19 08:28 Dose: 300 mg Non-Formulary Medication (Divalproex Sodium [Depakote Sprinkle]) 250 mg PO QAM [facility] Last Admin: 03/23/19 08:28 Dose: 250 mg Non-Formulary Medication (Divalproex Sodium [Depakote Sprinkle]) 375 mg PO BEDTIME [facility] Last Admin: 03/22/19 20:41 Dose: 375 mg Non-Formulary Medication (Montelukast Sodium [Singulair]) 5 mg PO DAILY [facility] Last Admin: 03/23/19 08:28 Dose: 5 mg Polyethylene Glycol (Miralax) 17 gm PO DAILY [facility] Last Admin: 03/23/19 08:29 Dose: 17 gm OMNICEF 300 MG BID (HAS AT HOME) PREDNISOLONE 15 MG PO DAILY (HAS AT HOME) DUONEBS 1 VIAL IN NEBULIZER TID REGULARLY FOR 2 WEEKS (HAS AT HOME) PULMICORT 1 VIAL IN NEBULIZER AT BEDTIME (HAS AT HOME) ALLERGIES chocolate flavor Allergy (Severe, Verified 11/16/18 14:06) Migraines Sulfa (Sulfonamide Antibiotics) Allergy (Severe, Verified 11/16/18 14:06) seizures azithromycin [From Zithromax] Allergy (Verified 11/16/18 14:06) clarithromycin [From Biaxin] Allergy (Verified 11/16/18 14:06) erythromycin base [Erythromycin Base] Allergy (Verified 11/16/18 14:06) morphine Allergy (Verified 11/16/18 14:06) propoxyphene HCl [From Darvon] Allergy (Verified 11/16/18 14:06) sucralfate [From Carafate] Adverse Reaction (Severe, Verified 11/16/18 14:06) seizures Proton Pump Inhibitors Adverse Reaction (Intermediate, Verified 11/16/18 14:06) leukopenia hydromorphone HCl [From Dilaudid] Adverse Reaction (Verified 11/16/18 14:06) DISCONTINUED MEDICATIONS NONE NEW PRESCRIPTIONS: FERROUS SULFATE ELIXIR 220 MG PER 5 ML DAILY SMOKING: NOT APPLICABLE DISEASE SPECIFIC EDUCATION: MOTHER INSTRUCTED ON NEW MEDICATION NEBULIZER TREATMENTS APPOINTMENT LAB REVIEW: 03/23/19 04:59 03/23/19 04:59 03/23/19 04:59: Sodium 142.2, Potassium 4.08, Chloride 105.2, Carbon Dioxide 26.7, Anion Gap 14.38, BUN 15.6, Creatinine 0.34 L, Estimated GFR (MDRD) 212.00 , BUN/Creatinine Ratio 45.88, Glucose 113.1 H, Calcium 9.13, Total Bilirubin 0.28, AST 23.0, ALT 13.8, Alkaline Phosphatase 52.6, Total Protein 6.81, Albumin 4.02, Globulin 2.79, Albumin/Globulin Ratio 1.44 03/23/19 04:59: WBC 13.80 H, RBC 4.09 L, Hgb 8.5 L, Hct 29.3 L, MCV 71.6 L, MCH 20.8 L, MCHC 29.0 L, RDW Coeff of Pamela 21.0 H, Plt Count 295, Immature Gran % ( Auto) 1.4, Neut % (Auto) 69.9, Lymph % (Auto) 22.6, [place] % (Auto) 6.0, Eos % ( Auto) 0.0, Baso % (Auto) 0.1, Immature Gran # (Auto) 0.2, Neut # (Auto) 9.6 H, Lymph # (Auto) 3.1, [place] # (Auto) 0.8, Eos # (Auto) 0.0, Baso # (Auto) 0.0, Hypochromasia 1+, Anisocytosis 1+ PLAN: DISCHARGE HOME WITH PARENTS DIET: REGULAR TOLERATED LIQUIDS ENCOURAGED ACTIVITY: JANUARY RESUME TOLERATED; UP IN CHAIR TURN FREQUENTLY INCONTINENT CARE PRN DECUBITUS PRECAUTIONS NEBULIZER TREATMENT AT LEAST 3 TIMES DAILY FOR 2 WEEKS, THEN ONE-TWO TIMES DAILY ENCOURAGE TO TAKE DEEP BREATHS EVERY 2 HOURS WHILE SITTING IN CHAIR AN APPOINTMENT IS SCHEDULED WITH BRAYAN LOVE APRN ON March AT 10 AM CODE STATUS: FULL CODE LIA IS ALERT TO PERSON, PLACE AND SITUATION. SHE IS COOPERATIVE AND CHEERFUL. LIA LIVES AT HOME WITH HER PARENTS AND THEY PROVIDE HER DAILY CARE. LIA ATTENDS [employer] AND IS ABLE TO GO VIA SMART BUS TO THE CENTER. HER SPEECH IS DELAYED AND DIFFICULT TO UNDERSTAND AT TIMES. SHE REQUIRES TOTAL ASSISTANCE FOR ALL ACTIVITIES OF DAILY LIVING. MEAL INTAKES ARE GOOD AT 100%. SHE IS INCONTINENT OF BOWEL AND BLADDER. UPPER EXTREMITIES ARE CONTRACTURED, LOWER EXTREMITIES WITH CONTRACTURES. LIA DOES NOT AMBULATE, BUT IS LIFTED FROM BED TO CHAIR BY HER PARENTS. SHE IS ABLE TO SIT IN HER MOTORIZED WHEELCHAIR FOR TRANSPORTATION IN AND OUTSIDE THE HOME. EQUIPMENT AVAILABLE FOR HER CARE IN THE HOME INCLUDES A HOSPITAL BED, OVERHEAD LIFT, MOTORIZED WHEELCHAIR, NEBULIZER. COLORING IS PALE. SKIN IS INTACT AND FREE OF SKIN BREAKDOWN. MD BRAYAN SMITH APRN
--- NOTE | 2019-03-25 10:42 | PN ---
DATE OF SERVICE: 03/23/19 SUBJECTIVE: The patient was seen and examined with the Nurse Practitioner. The patient's condition seems to be improving slowly. Pneumonitis seems to be resolving. TIME SPENT: More than 30 minutes. Plan and coordination of the patient's care discussed in the presence of nurse. VARINDER
--- NOTE | 2019-03-25 13:18 | PN ---
DATE OF SERVICE: 03/23/19 SUBJECTIVE: The patient was seen and examined. The patient's condition at time of discharge stable. TIME SPENT: More than 30 minutes. Plan and coordination of the patient's care discussed in the presence of nurse. VARINDER
--- NOTE | 2019-03-25 13:20 | PN ---
CODING FOR BILLIN03/16/19 ADMISSION DAY LEVEL 5 03/17/19 INTERMEDIATE 03/18/19 INTERMEDIATE 03/19/19 INTERMEDIATE 03/20/19 INTERMEDIATE 03/21/19 INTERMEDIATE 03/22/19 INTERMEDIATE 03/23/19 DISCHARGE MTDD
--- NOTE | 2019-03-27 08:30 | PN ---
DATE OF SERVICE: 03/21/19 SUBJECTIVE: 45-year-old white female was hospitalized with shortness of breath, cough, congestion, pneumonitis. REVIEW OF SYSTEMS: CONSTITUTIONAL: No night sweats. No fatigue, malaise, lethargy. No fever or chills. HEENT: Eyes: No visual changes. No eye pain. No eye discharge. ENT: No runny nose. No epistaxis. No sinus pain. No sore throat. No odynophagia. No congestion. RESPIRATORY: Mild cough. No hemoptysis. No shortness of breath. CARDIOVASCULAR: No angina symptoms. No CHF symptoms. No atypical chest pain for CAD. No palpitations. No PND. No orthopnea. GASTROINTESTINAL: No abdominal pain. No nausea or vomiting. No diarrhea or constipation. No hematemesis. No hematochezia. GENITOURINARY: No urgency. No frequency. No dysuria. No hematuria. No obstructive symptoms. No discharge. No pain. No significant abnormal bleeding. MUSCULOSKELETAL: No musculoskeletal pain; no joint swelling. NEUROLOGICAL: No headache. No neck pain. No syncope. No seizures. No dizziness. PSYCHIATRIC: Not anxious. No depression. No suicidal thoughts. No homicidal thoughts. SKIN: No rash. No lesions. No wounds. ENDOCRINE: No unexplained weight loss. No weight gain. HEMATOLOGIC/LYMPHATIC: No anemia. No purpura. No petechiae. No prolonged or excessive bleeding. No palpable lymph nodes. PHYSICAL EXAMINATION: GENERAL: The patient seems to be oriented to person and place. VITAL SIGNS: Temperature 98.6, pulse 98, respiratory rate 16, blood pressure 133/79, pulse ox 98%. HEENT: Head normocephalic, atraumatic. Eyes: Extraocular muscles are intact. Pupils are equal, round and reactive to light and accommodation. Ears: No lesions. Nose appeared normal. Throat: No exudate or erythema. NECK: Supple. No JVD, no carotid bruit. No lymphadenopathy or thyromegaly. LUNGS: Decreased breath sounds but clear to auscultation. Percussion note normal. Chest symmetrical. HEART: S1, S2, no S3. No murmurs. No cyanosis or clubbing. No ascites. Pulses: Dorsalis pedis and posterior tibial pulses +1 to +2 bilaterally. ABDOMEN: Soft. Nontender. Bowel sounds active. No CVA tenderness. No mass felt. EXTREMITIES: No edema. Full range of motion of all extremities, equal. NEUROLOGIC: No focal deficit. Cranial nerves II through XII are grossly intact. No headache, no double vision or headache. SKIN: Not dry. Intact. Turgor - normal. LYMPHATIC: No palpable lymph nodes/no lymphedema. MUSCULOSKELETAL: Normal joints with no swelling. Muscle tone is normal. LABS: Hemoglobin 8.2, hematocrit 28, WBC 11,000, normal differential. Creatinine 0.3, BUN 16, potassium 3.7. ASSESSMENT: 1. Acute pneumonitis/bronchitis seems to be resolving. 2. Severe anemia, will follow that. No evidence of active GI bleed. PLAN: 1. Continue antibiotics and steroids. TIME SPENT: More than 30 minutes. Plan and coordination of the patient's care discussed in the presence of nurse. VARINDER
--- NOTE | 2019-03-27 08:36 | PN ---
DATE OF SERVICE: 03/22/19 SUBJECTIVE: 43-year-old white female hospitalized with acute pneumonitis. The patient is feeling better. The appetite has improved. Both parents are in the room. REVIEW OF SYSTEMS: CONSTITUTIONAL: No night sweats. No fatigue, malaise, lethargy. No fever or chills. HEENT: Eyes: No visual changes. No eye pain. No eye discharge. ENT: No runny nose. No epistaxis. No sinus pain. No sore throat. No odynophagia. No congestion. RESPIRATORY: No cough, no congestion. No hemoptysis. No shortness of breath. CARDIOVASCULAR: No angina symptoms. No CHF symptoms. No atypical chest pain for CAD. No palpitations. No PND. No orthopnea. GASTROINTESTINAL: No abdominal pain. No nausea or vomiting. No diarrhea or constipation. No hematemesis. No hematochezia. GENITOURINARY: No urgency. No frequency. No dysuria. No hematuria. No obstructive symptoms. No discharge. No pain. No significant abnormal bleeding. MUSCULOSKELETAL: No musculoskeletal pain; no joint swelling. NEUROLOGICAL: No headache. No neck pain. No syncope. No seizures. No dizziness. PSYCHIATRIC: Not anxious. No depression. No suicidal thoughts. No homicidal thoughts. SKIN: No rash. No lesions. No wounds. ENDOCRINE: No unexplained weight loss. No weight gain. HEMATOLOGIC/LYMPHATIC: No anemia. No purpura. No petechiae. No prolonged or excessive bleeding. No palpable lymph nodes. PHYSICAL EXAMINATION: VITAL SIGNS: Temperature 98, pulse 114, respiratory rate 19, blood pressure 118 /87, pulse ox 93%. HEENT: Head normocephalic, atraumatic. Eyes: Extraocular muscles are intact. Pupils are equal, round and reactive to light and accommodation. Ears: No lesions. Nose appeared normal. Throat: No exudate or erythema. NECK: Supple. No JVD, no carotid bruit. No lymphadenopathy or thyromegaly. LUNGS: Decreased breath sounds but clear to auscultation. Percussion note normal. Chest symmetrical. HEART: S1, S2, no S3. No murmurs. No cyanosis or clubbing. No ascites. Pulses: Dorsalis pedis and posterior tibial pulses +1 to +2 bilaterally. ABDOMEN: Soft. Nontender. Bowel sounds active. No CVA tenderness. No mass felt. EXTREMITIES: No edema. Full range of motion of all extremities, equal. NEUROLOGIC: No focal deficit. Cranial nerves II through XII are grossly intact. No headache, no double vision or headache. SKIN: Not dry. Intact. Turgor - normal. LYMPHATIC: No palpable lymph nodes/no lymphedema. MUSCULOSKELETAL: Normal joints with no swelling. Muscle tone is normal. ASSESSMENT: 1. PNEUMONITIS SEEMS TO BE RESOLVING. 2. SEVERE ANEMIA. 3. MENTAL RETARDATION. PLAN: Check CBC with differential today. If it is less than 8, type and crossmatch one unit and transfuse one unit. The patient has history of anemia. There is no evidence of GI blood loss. The patient and family decline any colonoscopy or further workup in the way of any invasive procedure. TIME SPENT: More than 30 minutes. Plan and coordination of the patient's care discussed in the presence of nurse. VARINDER
--- NOTE | 2019-03-27 09:18 | DS ---
DATE OF SERVICE: 03/23/19 FINAL DIAGNOSIS: 1. ACUTE PNEUMONITIS 2. EARLY LLL PNEUMONIA 3. ANEMIA, CHRONIC 4. CEREBRAL PALSY 5. SEIZURE DISORDER 6. DYSLIPIDEMIA 7. SEVERE CONSTIPATION WITH HEMORRHOIDS 8. MANAGER BRIDGE SHUNT 9. HYSTERECTOMY 10. CLUB FEET 11. TENDON RELEASE LEFT LEG 12. APPENDECTOMY 13. LEFT HIP PINNING LAST VITALS Temp Pulse Resp BP Pulse Ox 98.4 F 114 H 18 121/80 99 03/23/19 05:18 03/23/19 05:18 03/23/19 07:32 03/23/19 05:18 03/23/19 05:18 DISCHARGE INSTRUCTIONS: 1. DISCHARGE HOME WITH PARENTS. 2. TURN FREQUENTLY. 3. INCONTINENT CARE PRN. 4. DECUBITUS PRECAUTIONS. 5. NEBULIZER TREATMENT AT LEAST 3 TIMES DAILY FOR 2 WEEKS, THEN ONE-TWO TIMES DAILY ENCOURAGE TO TAKE DEEP BREATHS EVERY 2 HOURS WHILE SITTING IN CHAIR. 6. AN APPOINTMENT IS SCHEDULED WITH BRAYAN LOVE APRN ON March AT 10 AM. MEDICATIONS AT DISCHARGE: Ferrous Sulfate (Ferrous Sulfate) 5 ml PO 1300 [facility] Last Admin: 03/22/19 12:45 Dose: 5 ml Hydrocortisone Acetate (Anucort-Hc) 1 supp RC BID [facility] Last Admin: 03/23/19 08:29 Dose: 1 supp Non-Formulary Medication (Carbamazepine ) 300 mg PO BID [facility] Last Admin: 03/23/19 08:28 Dose: 300 mg Non-Formulary Medication (Divalproex Sodium ) 250 mg PO QAM [facility] Last Admin: 03/23/19 08:28 Dose: 250 mg Non-Formulary Medication (Divalproex Sodium ) 375 mg PO BEDTIME [facility] Last Admin: 03/22/19 20:41 Dose: 375 mg Non-Formulary Medication (Montelukast Sodium ) 5 mg PO DAILY [facility] Last Admin: 03/23/19 08:28 Dose: 5 mg Polyethylene Glycol (Miralax) 17 gm PO DAILY [facility] Last Admin: 03/23/19 08:29 Dose: 17 gm OMNICEF 300 MG BID (HAS AT HOME) PREDNISOLONE 15 MG PO DAILY (HAS AT HOME) DUONEBS 1 VIAL IN NEBULIZER TID REGULARLY FOR 2 WEEKS (HAS AT HOME) PULMICORT 1 VIAL IN NEBULIZER AT BEDTIME (HAS AT HOME) NEW PRESCRIPTIONS: FERROUS SULFATE ELIXIR 220 MG PER 5 ML DAILY DISCONTINUED MEDICATIONS: NONE DIET INSTRUCTIONS: REGULAR TOLERATED; LIQUIDS ENCOURAGED. ACTIVITY: MAY RESUME TOLERATED; UP IN CHAIR SMOKING: NOT APPLICABLE DISEASE SPECIFIC EDUCATION: MOTHER INSTRUCTED ON NEW MEDICATION NEBULIZER TREATMENTS APPOINTMENT HOSPITAL COURSE: This is a 43-year-old white female who was a direct admit from our office with acute pneumonitis. She has cerebral palsy. She was treated as an outpatient with Omnicef liquid and Prelone liquid for bronchitis type symptoms and low grade fever. Fever continued to worse was 101.5; the night prior to admission she was 100 in our office. She is admitted. Chest x-ray showed early left lower lobe pneumonia. She was placed on slow IV fluids, Normal Saline as well as Rocephin 1 gm IV daily and Solu-Cortef 80 mg IV b.i.d. She was also put on Pulmicort nebs 0.5 b.i.d. as well as Xopenex t.i.d. LAUREN. She has a history of chronic anemia. Hemoglobin did drop 8.5 on admission, dropped to 8.2. Anemia profile showed iron deficiency. She does have a long history of constipation. I started her on liquid iron once daily in the hospital. Will continue it once daily until we are sure that she can tolerate this and is having regular bowel movements as she does have some issues, requires suppositories, does often have very large hard stools with bright red bleeding. She sees as her GI for this so she has been in the hospital several days. She has slowly improved. She had fever the first couple of days and not much appetite. Depakote and Tegretol levels were done. Tegretol was slightly elevated. We held one dose. This has since been repeated and is normal. For the past two days she has been eating 100% of her meals, is more talkative, is no longer experiencing any shortness of breath. She still has a mildly productive cough. We are going to discharge her today in stable condition. She will go home and finish out the Omnicef with the Prelone that she has at home. She is to continue Albuterol neb treatments t.i.d. for at least the next two weeks and wean as tolerated. She is also to continue the liquid iron 225 mg p.o. daily. Once she comes back for hospital followup I will increase this to twice daily as long as she is tolerating. TIME SPENT: More than 60 minutes. MTDD
--- NOTE | 2019-05-08 14:33 | PN ---
DATE OF SERVICE: 03/17/19 SUBJECTIVE: The patient was seen and examined with the Nurse Practitioner. The patient's condition has improved and she is looking a lot better. Much less afebrile. The appetite has improved. The patient was seen and examined with the Nurse Practitioner. TIME SPENT: More than 30 minutes. Plan and coordination of the patient's care discussed in the presence of nurse. VARINDER
== END 2019-03-23 13:06 | disposition home or self-care (01) | DRG 641 ==
LOC: MEDSURG B 10:49
PROVIDERS: ADMIT Internal Medicine; ATTEND Internal Medicine
DX: E78.5 Hyperlipidemia, unspecified; E86.0 Dehydration; F79 Unspecified intellectual disabilities; G80.9 Cerebral palsy, unspecified; K59.00 Constipation, unspecified; J20.9 Acute bronchitis, unspecified; Q66.89 Other specified congenital deformities of feet; G40.909 Epilepsy, unspecified, not intractable, without status epilepticus; D64.9 Anemia, unspecified; J02.9 Acute pharyngitis, unspecified

== ENCOUNTER 2019-04-19 21:19 | Inpatient (IN) ==
[2019-04-19] MEDS ORDERED: SODIUM CHLORIDE 1,000 ML IV STA (21:47)
--- NOTE | 2019-04-19 21:48 | ED.PDOC ---
General ED Provider: Dr. DAMARIS HAYDEN Chief Complaint: Fever Stated Complaint: Brought in by parents with a sudden onset of fever and mild headaches. Denies any other symptoms such as abdominal pain, chest pain or cough. Time Seen by Physician: 21:48 Mode of Arrival: Wheelchair Information Source: Patient Primary Care Provider: CRIS LEE Nursing and Triage Documentation Reviewed and Agree: Yes Does patient meet sepsis criteria?: Yes If yes, has appropriate treatment been initiated?: Yes (IV fluids.) System Inflammatory Response Syndrome: Temp 101F or Greater, Pulse >90 BPM, Resp >20/Minute Sepsis Protocol: For patient's 13 years and over: Temp is 96.8 and below OR 101 and greater Pulse >90 BPM Resp >20/minute Acutely Altered Mental Status Are patient's symptoms suggestive of a new infection, such as: -Pneumonia -Skin, Soft Tissue -Endocarditis -UTI -Bone, Joint Infection -Implantable Device -Acute Abdominal Infection -Wound Infection -Meningitis -Blood Stream Catheter Infection -Unknown Review of Systems - Review Of Systems Constitutional: Reports: Fever, Weakness Eyes: Reports: No symptoms Ears, Nose, Mouth, Throat: Reports: No symptoms Respiratory: Reports: No symptoms Cardiac: Reports: No symptoms GI: Reports: No symptoms : Reports: No symptoms Musculoskeletal: Reports: No symptoms Skin: Reports: No symptoms Neurological: Reports: Anxiety Endocrine: Reports: No symptoms Hematologic/Lymphatic: Reports: No symptoms All Other Systems: Reviewed and Negative Past Medical History - Past Medical History Previously Healthy: Yes Endocrine: Reports: None Cardiovascular: Reports: None Respiratory: Reports: None Hematological: Reports: None Gastrointestinal: Reports: None Genitourinary: Reports: None Neuro/Psych: Reports: Seizure, Other (cerebral palsy ) Musculoskeletal: Reports: None Cancer: Reports: None Last Menstrual Period: PT HAS HAD A HYSTERECTOMY Other Pertinent Past Medical History: mental Retardation - Surgical History General Surgical History: Reports: Other (SHUNTS,HERNIA,CLUB FOOT,TENDON,HIP) - Family History Family History: Reports: Unknown - Social History Smoking Status: Never smoker Hx Substance Use: No Alcohol Screening: None - Immunizations Tetanus Shot up to Date: (UNKNOWN) Physical Exam - Physical Exam Appearance: Ill-appearing Ill-appearing: Mild Pain Distress: Mild Eyes: ANDREA, EOMI, Conjunctiva clear Neck: Supple Respiratory: Airway patent, Breath sounds clear, Breath sounds equal, Respirations nonlabored Cardiovascular: No rub, No murmur, Tachycardia GI/: Soft, Nontender Musculoskeletal: Normal strength, ROM intact, No edema, No calf tenderness Skin: Warm, Dry, Normal color Neurological: Alert, CN Palsy Psychiatric: Anxious Interpretation - Radiology Interpretation Radiology Interpretation By: Radiologist Radiology Results: No acute changes Exam Interpreted: CXR, CT Scan - EKG Interpretation Time of EKG #1: 23:30 Rate: Tachy Rhythm: Sinus Ectopy: None Quimby: NL ST Segment: Normal Interpretation: Sinus Tachy Re-Evaluation - Re-Evaluation Time of Re-Evaluation: 01:36 Status: Improved Vital Signs Stable: Yes Appearance: NAD Additional Comments: states she feels better. - Re-Evaluation Time of Re-Evaluation: 02:39 Status: Improved (feels better still ) Vital Signs Stable: Yes (111/78, rep 18, Temp 99.5 HR 99) Appearance: NAD Physician Notification - Case Discussed Physician Notified: Dr Lee Time of Notification: 01:30 (Get CT chest ) Physician Notified: Dr Lee Time of Notification: 02:20 (Ok to admit ) Critical Care Note - Critical Care Note Total Time (mins): 50 Course - Course Hematology/Chemistry: 04/20/19 06:25 04/20/19 06:25 Orders, Labs, Meds: Lab Review 04/19/19 04/19/19 04/19/19 22:48 22:48 22:48 WBC 11.73 H RBC 5.28 Hgb 12.8 Hct 40.7 MCV 77.1 L MCH 24.2 L MCHC 31.4 L RDW Coeff of Pamela 0.0 L Plt Count 208 Immature Gran % (Auto) 0.7 Neut % (Auto) 74.8 Lymph % (Auto) 12.8 Bureau % (Auto) 11.4 H Eos % (Auto) 0.0 Baso % (Auto) 0.3 Immature Gran # (Auto) 0.1 Neut # (Auto) 8.8 H Lymph # (Auto) 1.5 Bureau # (Auto) 1.3 Eos # (Auto) 0.0 Baso # (Auto) 0.0 Anisocytosis 1+ Spherocytes 1+ Sodium 136.0 Potassium 4.11 Chloride 99.2 Carbon Dioxide 24.8 Anion Gap 16.11 BUN 14.9 Creatinine 0.43 L Estimated GFR (MDRD) 162.00 BUN/Creatinine Ratio 34.65 Glucose 123.3 H Lactic Acid Calcium 9.10 Total Bilirubin 0.28 AST 27.3 ALT 12.8 Alkaline Phosphatase 69.5 Total Protein 7.91 Albumin 4.44 Globulin 3.47 Albumin/Globulin Ratio 1.27 Procalcitonin < 0.05 Urine Color Urine Clarity Urine pH Ur Specific [place] Urine Protein Urine Glucose (UA) Urine Ketones Urine Blood Urine Nitrite Urine Bilirubin Urine Urobilinogen Ur Leukocyte Esterase Urine Microscopic RBC Ur Squamous Epith Cells Influ A Molecular Assay Influ B Molecular Assay 04/19/19 04/19/19 04/20/19 22:48 23:40 02:10 WBC RBC Hgb Hct MCV MCH MCHC RDW Coeff of Pamela Plt Count Immature Gran % (Auto) Neut % (Auto) Lymph % (Auto) Bureau % (Auto) Eos % (Auto) Baso % (Auto) Immature Gran # (Auto) Neut # (Auto) Lymph # (Auto) Bureau # (Auto) Eos # (Auto) Baso # (Auto) Anisocytosis Spherocytes Sodium Potassium Chloride Carbon Dioxide Anion Gap BUN Creatinine Estimated GFR (MDRD) BUN/Creatinine Ratio Glucose Lactic Acid 2.47 H Calcium Total Bilirubin AST ALT Alkaline Phosphatase Total Protein Albumin Globulin Albumin/Globulin Ratio Procalcitonin Urine Color Yellow Urine Clarity Clear Urine pH 7.5 Ur Specific [place] 1.020 Urine Protein Negative Urine Glucose (UA) Negative Urine Ketones Negative Urine Blood Trace-intact Urine Nitrite Negative Urine Bilirubin Negative Urine Urobilinogen 0.2 Ur Leukocyte Esterase Negative Urine Microscopic RBC 0-2 Ur Squamous Epith Cells Not present Influ A Molecular Assay Negative by naat Influ B Molecular Assay Negative by naat Orders Category Date Time Status EKG-(ED ONLY) Stat CARDIO 04/19/19 23:21 Completed NPO REMINDER: IMAGING ONCE CARE 04/20/19 01:33 Completed ED APPLY O2 .ONCE EMERGENCY 04/19/19 21:44 Active ED EMPLOYMENT OFFICE CLERK APPLIED .ONCE EMERGENCY 04/19/19 21:44 Active ED IV/MEDIPORT/POWERPORT .ONCE EMERGENCY 04/19/19 21:46 Active ED VITAL SIGNS Q4HR EMERGENCY 04/19/19 21:44 Completed BLOOD CULTURE (ED ONLY) Stat LAB 04/19/19 22:20 Received CBC W/ AUTO DIFF Stat LAB 04/19/19 22:48 Completed COMPREHENSIVE METABOLIC PANEL Stat LAB 04/19/19 22:48 Completed LACTIC ACID Stat LAB 04/19/19 22:48 Completed MOLECULAR FLU A & B [FLU A/B MOLECULAR] Stat LAB 04/20/19 02:10 Completed MOLECULAR GROUP A STREP Stat LAB 04/20/19 02:10 Completed PROCALCITONIN Stat LAB 04/19/19 22:48 Completed RBC MORPHOLOGY Stat LAB 04/19/19 22:48 Completed URINALYSIS C & S IF INDICATED Stat LAB 04/19/19 23:40 Completed 0.9 % Sodium Chloride [Saline Flush] MEDS 04/19/19 21:46 Active 1 syr IVF PRN PRN Acetaminophen [Tylenol 160 mg/5 ml] MEDS 04/19/19 23:22 Discontinued 480 mg PO ONCE STA Ceftriaxone/D5w 1 gm Premix [Rocephin 1 gm Premix] 1 gm MEDS 04/20/19 00:27 Discontinued Premix 50 ml D5w 1 bag IV ONCE Ceftriaxone/D5w 1 gm Premix [Rocephin 1 gm Premix] 50 MEDS 04/20/19 00:31 Discontinued ml IV .STK-MED Sodium Chloride 0.9% [Sodium Chloride] 1,000 ml MEDS 04/19/19 21:47 Discontinued IV BOLUS CHEST, 1V AP ONLY Stat RADS 04/19/19 21:[address] CHEST W/CONTRAST Stat RADS 04/20/19 01:31 Completed Medications Generic Name Dose Route Start Last Admin Trade Name Freq PRN Reason Stop Dose Admin Acetaminophen 480 mg 04/20/19 02:43 Tylenol 160 Mg/5 Ml PO Q6H PRN FEVER Albuterol/Ipratropium 1 vial 04/20/19 18:00 Duoneb NEB RTBID LAUREN Enoxaparin Sodium 40 mg 04/20/19 09:00 04/20/19 09:13 Lovenox SUBCUT 40 mg DAILY LAUREN Administration Ferrous Sulfate 5 ml 04/20/19 09:00 04/20/19 09:11 Ferrous Sulfate PO 5 ml DAILY LAUREN Administration Hydrocortisone Acetate 1 supp 04/20/19 09:00 04/20/19 20:30 Anucort-Hc RC 1 supp BID LAUREN Administration CEFTRIAXONE/D5W 1 GM PREMIX 1 50 mls @ 75 mls/hr 04/20/19 21:00 04/20/19 20: 36 gm/ Dextrose IV 04/23/19 20:59 75 mls/hr BEDTIME LAUREN Administration Sodium Chloride 1,000 mls @ 75 mls/hr 04/20/19 08:30 04/20/19 09:24 Sodium Chloride IV 75 mls/hr .[id number] LAUREN Administration Methylprednisolone Sodium Succinate 40 mg 04/20/19 03:00 04/20/19 20:31 Solu-Medrol 40 Mg IVP 40 mg Q8HR LAUREN Administration Non-Formulary Medication 300 mg 04/20/19 09:00 04/20/19 20:35 Carbamazepine [Carbatrol] PO 300 mg BID LAUREN Administration Non-Formulary Medication 250 mg 04/20/19 09:00 04/20/19 09:11 Divalproex Sodium [Depakote Sprinkle] PO 250 mg QAM LAUREN Administration Non-Formulary Medication 375 mg 04/20/19 08:30 04/20/19 20:35 Divalproex Sodium [Depakote Sprinkle] PO 375 mg BEDTIME LAUREN Administration Non-Formulary Medication 5 mg 04/20/19 09:00 04/20/19 09:12 Montelukast Sodium [Singulair] PO 5 mg DAILY LAUREN Administration Ondansetron HCl 4 mg 04/20/19 02:43 Zofran 4 Mg/2 Ml IVP Q6H PRN Nausea / Vomiting Polyethylene Glycol 17 gm 04/20/19 09:00 04/20/19 09:10 Miralax PO 17 gm DAILY LAUREN Administration Sodium Chloride 1 syr 04/19/19 21:46 Saline Flush IVF PRN PRN To flush IV Discontinued Medications Generic Name Dose Route Start Last Admin Trade Name Isrraelq PRN Reason Stop Dose Admin Acetaminophen 480 mg 04/19/19 23:22 04/19/19 23:27 Tylenol 160 Mg/5 Ml PO 04/19/19 23:23 480 mg ONCE STA Administration Sodium Chloride 1,000 mls @ 1,000 mls/hr 04/19/19 21:47 04/19/19 22:35 Sodium Chloride IV 04/19/19 22:46 100 mls/hr BOLUS STA Administration CEFTRIAXONE/D5W 1 GM PREMIX 1 50 mls @ 75 mls/hr 04/20/19 00:27 04/20/19 00: 35 gm/ Dextrose IV 04/20/19 01:06 75 mls/hr ONCE STA Administration Ceftriaxone Sodium 1 gm/ 50 mls @ 75 mls/hr 04/20/19 21:00 Sodium Chloride IV 04/23/19 20:59 BEDTIME LAUREN Sodium Chloride 1,000 mls @ 100 mls/hr 04/20/19 03:00 04/20/19 03:48 Sodium Chloride IV 100 mls/hr .Q10H LAUREN Administration Vital Signs: Temp Pulse Resp BP Pulse Ox 04/20/19 02:35 99.5 F 04/19/19 21: 101.7 F H 136 H 28 H 107/78 96 Departure - Departure Time of Disposition: 02:37 Disposition: ADMITTED INPATIENT Discharge Problem: Fever Condition: Stable Pt referred to PMD for follow-up: Yes IPMP verified?: No Allergies/Adverse Reactions: Allergies chocolate flavor Allergy (Severe, Verified 04/19/19 21:29) Migraines Sulfa (Sulfonamide Antibiotics) Allergy (Severe, Verified 04/19/19 21:29) seizures Patient to notify drugstore azithromycin [From Zithromax] Allergy (Verified 04/19/19 21:29) clarithromycin [From Biaxin] Allergy (Verified 04/19/19 21:29) erythromycin base [Erythromycin Base] Allergy (Verified 04/19/19 21:29) morphine Allergy (Verified 04/19/19 21:29) propoxyphene HCl [From Darvon] Allergy (Verified 04/19/19 21:29) sucralfate [From Carafate] Adverse Reaction (Severe, Verified 04/19/19 21:29) seizures Proton Pump Inhibitors Adverse Reaction (Intermediate, Verified 04/19/19 21:29) leukopenia hydromorphone HCl [From Dilaudid] Adverse Reaction (Verified 04/19/19 21:29) Home Medications: Ambulatory Orders Carbamazepine [Carbatrol] 300 mg PO BID 05/11/13 Divalproex Sodium [Depakote Sprinkle] 250 mg PO QAM #1 cap.sprink 12/22/13 Divalproex Sodium [Depakote Sprinkle] 375 mg PO BEDTIME 11/04/14 Ipratropium/Albuterol Neb [Duoneb] 1 vial NEB TID PRN #90 vial.neb 01/25/18 Polyethylene Glycol 3350 [Miralax] 17 gm PO DAILY 03/25/18 Montelukast Sodium [Singulair] 5 mg PO DAILY 03/16/19 Ferrous Sulfate Solution [Ferrous Sulfate] 5 ml PO DAILY #150 ml 03/23/19
--- NOTE | 2019-04-19 22:12 | DI ---
Exam: Chest one-view History: Fever FINDINGS: Rotated positioning is inhibiting. Retrocardiac lung density also seen on 03/16/2019 and 12/12/2018. Remainder the lungs are clear. Stable catheter overlying the midline. No acute chest w all abnormality. Impression: Stable retrocardiac lung base opacity probably representing scarring. Cannot exclude un derlying pneumonia.
[2019-04-19] MEDS ORDERED: TYLENOL PO STA (22:58)
[2019-04-19] MEDS ORDERED: TYLENOL 160 MG/5 ML PO STA (23:22)
[2019-04-20] MEDS ORDERED: ROCEPHIN 1 GM/50 ML D5W 1 GM in PREMIX 50 ML D5W 1 BAG IV STA (00:27)
[2019-04-20] MEDS ORDERED: ROCEPHIN 1 GM/50 ML D5W 50 ML IV ONE (00:31)
--- NOTE | 2019-04-20 02:17 | CT ---
EXAM: CT scan chest with contrast HISTORY: Pneumonia COMPARISON: CT scan chest 08/12/2017 FINDINGS: Contiguous axial images were obtained through the chest following intravenous contrast uti lizing 5-mm collimation. Sagittal and coronal reconstructions were imaged and reviewed... The thora cic inlet is unremarkable. Left IJ catheter extends into the SVC. The heart is normal in size witho ut pericardial effusion. There is no hilar or mediastinal lymphadenopathy.. Stable ground-glass infi ltrates are seen the right middle lobe and lower lobe. There is also. Pleural thickening and consol idation appear stable at left base.. Bone windows show no evidence of lytic or blastic lesions. IMPRESSION: Stable appearing ground-glass infiltrates right middle lobe and right lung base Stable consolidation with pneumopleural thickening at the left lung base.
[2019-04-20] MEDS ORDERED: TYLENOL 160 MG/5 ML PO PRN (02:43)
[2019-04-20] MEDS ORDERED: ZOFRAN 4 MG/2 ML IVP PRN (02:43)
[2019-04-20] MEDS ORDERED: SODIUM CHLORIDE 1,000 ML IV SCH (03:00)
[2019-04-20 03:35] VITALS: BMI 12.2
[2019-04-20] MEDS: SOLU-MEDROL 40 MG IVP SCH ×4 (03:48→20:31)
--- NOTE | 2019-04-20 08:46 | PCM.PROG ---
Attending Provider: ATTENDING PROVIDER: Dr. CRIS LEE This patient is seen with Maria Castellanos, Nurse Practitioner. DATE OF SERVICE: 04/20/19 SUBJECTIVE: This 43 year old WHITE/ F was hospitalized 04/20/19. The patient is laying comfortably in bed. She has had a temperature of 99 throughout the night. She is afebrile this morning, is not coughing. She has no complaints of pain. REVIEW OF SYSTEMS: CONSTITUTIONAL: Fever and fatigue. Generalized weakness. No night sweats. No malaise, lethargy. No chills. HEENT: Eyes: No visual changes. No eye pain. No eye discharge. ENT: No runny nose. No epistaxis. No sinus pain. No odynophagia. No congestion. RESPIRATORY: No cough, no congestion. No hemoptysis. No shortness of breath. CARDIOVASCULAR: No angina symptoms. No CHF symptoms. No atypical chest pain for CAD. No palpitations. No orthopnea.. GASTROINTESTINAL: No abdominal pain. No nausea or vomiting. No diarrhea or constipation. No hematemesis. No hematochezia. GENITOURINARY: No urgency. No frequency. No dysuria. No hematuria. No obstructive symptoms. No discharge. No pain. No significant abnormal bleeding. MUSCULOSKELETAL: No musculoskeletal pain; no joint swelling. NEUROLOGICAL: Awake, alert, oriented to time, place and person. No headache. No neck pain. No syncope. No seizures. No dizziness. PSYCHIATRIC: Not anxious. No depression. No suicidal thoughts. No homicidal thoughts. SKIN: No rash. No lesions. No wounds. ENDOCRINE: No unexplained weight loss. No weight gain. HEMATOLOGIC/LYMPHATIC: No anemia. No purpura. No petechiae. No prolonged or excessive bleeding. No palpable lymph nodes. PHYSICAL EXAMINATION: GENERAL: The patient is awake, alert and oriented, lying/sitting in bed in no distress. VITAL SIGNS: Temperature 98.2 F, Pulse 93, Respiratory Rate 16, BP 107/78, Pulse Ox 94% HEENT: Head normocephalic, atraumatic. Eyes: Extraocular muscles are intact. Pupils are equal, round and reactive to light and accommodation. Ears: No lesions. Nose appeared normal. Throat: No exudate or erythema. NECK: Supple. No JVD, no carotid bruit. No lymphadenopathy or thyromegaly. LUNGS: Diminished breath sounds. Clear to auscultation. Percussion note normal. Chest symmetrical. HEART: S1, S2, no S3. No murmurs. No cyanosis or clubbing. No ascites. Pulses: Dorsalis pedis and posterior tibial pulses +1 to +2 both sides. ABDOMEN: Soft. Non-tender. Bowel sounds active. No CVA tenderness. No mass felt. EXTREMITIES: No edema. Full range of motion of all extremities, equal. NEUROLOGIC: No focal deficit. Cranial nerves II through XII are grossly intact. No headache, no double vision or headache. SKIN: Not dry. Intact. Turgor-normal. LYMPHATIC: No palpable lymph nodes/no lymphedema. MUSCULOSKELETAL: Normal joints with no swelling. Muscle tone is normal. LAB REVIEW: 04/20/19 06:25 04/20/19 06:25 04/20/19 06:25: Sodium 136.8, Potassium 3.95, Chloride 104.3, Carbon Dioxide 24.5, Anion Gap 11.95, BUN 9.5, Creatinine 0.27 L, Estimated GFR (MDRD) 277.00, BUN/Creatinine Ratio 35.18, Glucose 127.3 H, Calcium 8.35 L, Total Bilirubin 0.26, AST 22.4, ALT 10.2, Alkaline Phosphatase 59.4, Total Protein 6.77, Albumin 3.76, Globulin 3.01, Albumin/Globulin Ratio 1.24 04/20/19 06:25: WBC 12.78 H, RBC 4.60, Hgb 11.2 L, Hct 35.4 L, MCV 77.0 L, MCH 24.3 L, MCHC 31.6 L, RDW Coeff of Pamela 0.0 L, Plt Count 163, Immature Gran % ( Auto) 0.6, Neut % (Auto) 88.9, Lymph % (Auto) 7.7 L, [place] % (Auto) 2.5, Eos % ( Auto) 0.0, Baso % (Auto) 0.3, Immature Gran # (Auto) 0.1, Neut # (Auto) 11.4 H, Lymph # (Auto) 1.0, [place] # (Auto) 0.3 L, Eos # (Auto) 0.0, Baso # (Auto) 0.0, Anisocytosis 1+, Spherocytes 1+ 04/20/19 02:10: Influ A Molecular Assay Negative by naat, Influ B Molecular Assay Negative by naat 04/19/19 23:40: Urine Color Yellow, Urine Clarity Clear, Urine pH 7.5, Ur Specific [place] 1.020, Urine Protein Negative, Urine Glucose (UA) Negative, Urine Ketones Negative, Urine Blood Trace-intact, Urine Nitrite Negative, Urine Bilirubin Negative, Urine Urobilinogen 0.2, Ur Leukocyte Esterase Negative, Urine Microscopic RBC 0-2, Ur Squamous Epith Cells Not present 04/19/19 22:48: Lactic Acid 2.47 H 04/19/19 22:48: Procalcitonin < 0.05 04/19/19 22:48: Sodium 136.0, Potassium 4.11, Chloride 99.2, Carbon Dioxide 24.8 , Anion Gap 16.11, BUN 14.9, Creatinine 0.43 L, Estimated GFR (MDRD) 162.00, BUN /Creatinine Ratio 34.65, Glucose 123.3 H, Calcium 9.10, Total Bilirubin 0.28, AST 27.3, ALT 12.8, Alkaline Phosphatase 69.5, Total Protein 7.91, Albumin 4.44 , Globulin 3.47, Albumin/Globulin Ratio 1.27 04/19/19 22:48: WBC 11.73 H, RBC 5.28, Hgb 12.8, Hct 40.7, MCV 77.1 L, MCH 24.2 L, MCHC 31.4 L, RDW Coeff of Pamela 0.0 L, Plt Count 208, Immature Gran % (Auto) 0.7, Neut % (Auto) 74.8, Lymph % (Auto) 12.8, [place] % (Auto) 11.4 H, Eos % (Auto ) 0.0, Baso % (Auto) 0.3, Immature Gran # (Auto) 0.1, Neut # (Auto) 8.8 H, Lymph # (Auto) 1.5, [place] # (Auto) 1.3, Eos # (Auto) 0.0, Baso # (Auto) 0.0, Anisocytosis 1+, Spherocytes 1+ ASSESSMENT: Fever, generalized weakness. PLAN: 1. Continue home medications. 2. Depakote. 3. Decrease IV fluids to 75 mL/hr. 4. Tegretol level. Plan and coordination of the patient's care discussed in the presence of Finishing Wire Sawyer and nurse. CONDITION: Stable SCRIBED BY: ELIZABETH MENDEZ Cold Header scribed while in presence of service performed by Dr. Lee/Maria Castellanos APRN on 04/20/19 ([id number])
[2019-04-20] MEDS: MIRALAX PO SCH (09:10)
[2019-04-20] MEDS: CARBAMAZEPINE 300 MG PO SCH ×2 (09:11→20:35)
[2019-04-20] MEDS: ANUCORT-HC RC SCH ×2 (09:11→20:30)
[2019-04-20] MEDS: DIVALPROEX SODIUM 250 MG PO SCH (09:11)
[2019-04-20] MEDS: FERROUS SULFATE PO SCH (09:11)
[2019-04-20] MEDS: MONTELUKAST SODIUM 5 MG PO SCH (09:12)
[2019-04-20] MEDS: LOVENOX SUBCUT SCH (09:13)
[2019-04-20] MEDS: SODIUM CHLORIDE 1,000 ML IV SCH (09:24)
[2019-04-20] MEDS: DIVALPROEX SODIUM 375 MG PO SCH ×2 (09:24→20:35)
--- NOTE | 2019-04-20 14:22 | HP ---
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 She is complaining of headache. Otherwise she denies any coughing or congestion. She has no sore throat. PAST MEDICAL HISTORY: Recurrent pneumonia Cerebral palsy Anemia History of seizure Chronic constipation PAST SURGICAL HISTORY: Shunt Hernia repair Club foot repair Hysterectomy REVIEW OF SYSTEMS: CONSTITUTIONAL: No night sweats. Fatigue. Fever. HEENT: Eyes: No visual changes. No eye pain. No eye discharge. ENT: No runny nose. No epistaxis. No sinus pain. No sore throat. No odynophagia. No ear pain. No congestion. RESPIRATORY: No cough, no congestion. No hemoptysis. No shortness of breath. CARDIOVASCULAR: No angina symptoms. No CHF symptoms. No atypical chest pain for CAD. No palpitations. No PND. No orthopnea. GASTROINTESTINAL: No abdominal pain. No nausea or vomiting. No diarrhea or constipation. No hematemesis. No hematochezia. GENITOURINARY: No urgency. No frequency. No dysuria. No hematuria. No obstructive symptoms. No discharge. No pain. No significant abnormal bleeding. MUSCULOSKELETAL: No musculoskeletal pain. No joint swelling. No arthritis. NEUROLOGICAL: No headache. No neck pain. No syncope. No seizures. No dizziness. PSYCHIATRIC: Not anxious. No depression. No suicidal thoughts. No homicidal thoughts. SKIN: No rash. No lesions. No wounds. ENDOCRINE: No unexplained weight loss. No weight gain. HEMATOLOGIC/LYMPHATIC: No anemia. No purpura. No petechiae. No prolonged or excessive bleeding. No palpable lymph nodes. PERSONAL/FAMILY/SOCIAL HISTORY: She is nonsmoker. She is mentally disabled. She is in a wheelchair. She lives with her parents and requires assistance with all activities of daily living. MEDICATIONS: Carbatrol 300mg PO twice a day Depakote Sprinkle 250mg PO QAM Depakote Sprinkle 375mg PO bedtime DUO NEB 1 vial NEB three times a day PRN Miralax 17 grams PO daily Anucort-HC 1 supp RC twice a day Singulair 5mg PO daily Ferrous Sulfate 5ml PO daily ALLERGIES: Chocolate flavor Sulfa Azithromycin Clarithromycin Erythromycin Morphine Propoxyphene Sucralfate Proton pump inhibitors hydromorphone PHYSICAL EXAMINATION: GENERAL: The patient is alert and oriented, fatigued and in no acute distress. VITAL SIGNS: Temperature 101.7, heart rate 136, respiratory rate 28, blood pressure 107/78, pulse ox 96% HEENT: Head normocephalic, atraumatic. Eyes: Extraocular muscles are intact. Pupils are equal, round and reactive to light and accommodation. Ears: No lesions. Nose appeared normal. Throat: No exudate or erythema. NECK: Supple. No JVD, no carotid bruit. No lymphadenopathy or thyromegaly. LUNGS: Diminished breath sounds. Clear to auscultation. Percussion note normal. Chest symmetrical. HEART: S1, S2, no S3. No murmurs. No cyanosis or clubbing. No ascites. Pulses: Dorsalis pedis and posterior tibial pulses +1 to +2 bilaterally. ABDOMEN: Soft. Nontender. Bowel sounds active. No CVA tenderness. No mass felt. EXTREMITIES: No edema. Full range of motion of all extremities, equal. NEUROLOGIC: No focal deficit. Cranial nerves II through XII are grossly intact. No headache, no double vision or headache. SKIN: Not dry. Intact. Turgor - normal. LYMPHATIC: No palpable lymph nodes/no lymphedema. MUSCULOSKELETAL: Normal joints with no swelling. Muscle tone is normal. Poor posture. LABS: WBC 11.73, hgb 12.8, hct 40.7, plt count 208, sodium 136, potassium 4.1, BUN 14 , creatinine 0.4, glucose 123, lactic 2.47, urine shows trace blood. Influenza A and B is negative. Rapid strep is negative. CT scan is unchanged. Chest x-ray is unchanged. ASSESSMENT: 1. Fever of unknown origin 2. History of seizures 3. Cerebral palsy PLAN: 1. We will admit 2. Routine telemetry 3. No cardiac markers 4. Start Rocephin 1 gram IV daily 5. Continue home medications 6. CBC and CMP daily 7. Normal saline at 75cc an hour 8. Tylenol Q 6 PRN for fever We will follow closely. TIME SPENT: More than 70 minutes. MTDD
[2019-04-20] MEDS: DUONEB NEB SCH (19:35)
[2019-04-20] MEDS: ROCEPHIN 1 GM/50 ML D5W 1 GM in PREMIX 50 ML D5W 1 BAG IV SCH (20:36)
[2019-04-20] MEDS ORDERED: ROCEPHIN 1 GM VIAL 1 GM in SODIUM CHLORIDE 50 ML IV SCH (21:00)
[2019-04-21] MEDS: SODIUM CHLORIDE 1,000 ML IV SCH (00:30)
[2019-04-21] MEDS: DUONEB NEB SCH ×2 (05:05→16:57)
[2019-04-21] MEDS: SOLU-MEDROL 40 MG IVP SCH ×3 (05:37→20:40)
--- NOTE | 2019-04-21 08:49 | PCM.PROG ---
Attending Provider: ATTENDING PROVIDER: Dr. CRIS LEE DATE OF SERVICE: 04/21/19 SUBJECTIVE: This 43 year old WHITE/ F was hospitalized 04/20/19 with fever of unknown etiology. The patient's condition has improved. The parents are in the room. REVIEW OF SYSTEMS: CONSTITUTIONAL: No night sweats. No fatigue, malaise, lethargy. No fever or chills. HEENT: Eyes: No visual changes. No eye pain. No eye discharge. ENT: No runny nose. No epistaxis. No sinus pain. No odynophagia. No congestion. RESPIRATORY: No cough, no congestion. No hemoptysis. No shortness of breath. CARDIOVASCULAR: No angina symptoms. No CHF symptoms. No atypical chest pain for CAD. No palpitations. No orthopnea.. GASTROINTESTINAL: No abdominal pain. No nausea or vomiting. No diarrhea or constipation. No hematemesis. No hematochezia. GENITOURINARY: No urgency. No frequency. No dysuria. No hematuria. No obstructive symptoms. No discharge. No pain. No significant abnormal bleeding. MUSCULOSKELETAL: No musculoskeletal pain; no joint swelling. NEUROLOGICAL: Awake, alert, oriented to time, place and person. No headache. No neck pain. No syncope. No seizures. No dizziness. PSYCHIATRIC: Not anxious. No depression. No suicidal thoughts. No homicidal thoughts. SKIN: No rash. No lesions. No wounds. ENDOCRINE: No unexplained weight loss. No weight gain. HEMATOLOGIC/LYMPHATIC: No anemia. No purpura. No petechiae. No prolonged or excessive bleeding. No palpable lymph nodes. PHYSICAL EXAMINATION: GENERAL: The patient is awake, alert and oriented, lying/sitting in bed in no distress. VITAL SIGNS: Temperature 97.9 F, Pulse 100, Respiratory Rate 16, BP 124/76, Pulse Ox 99% HEENT: Head normocephalic, atraumatic. Eyes: Extraocular muscles are intact. Pupils are equal, round and reactive to light and accommodation. Ears: No lesions. Nose appeared normal. Throat: No exudate or erythema. NECK: Supple. No JVD, no carotid bruit. No lymphadenopathy or thyromegaly. LUNGS: Clear to auscultation. Percussion note normal. Chest symmetrical. HEART: S1, S2, no S3. No murmurs. No cyanosis or clubbing. No ascites. Pulses: Dorsalis pedis and posterior tibial pulses +1 to +2 both sides. ABDOMEN: Soft. Non-tender. Bowel sounds active. No CVA tenderness. No mass felt. EXTREMITIES: No edema. Contractures of upper extremity. NEUROLOGIC: No focal deficit. Cranial nerves II through XII are grossly intact. No headache, no double vision or headache. SKIN: Warm and dry. Intact. Turgor-much better. LYMPHATIC: No palpable lymph nodes/no lymphedema. MUSCULOSKELETAL: Normal joints with no swelling. Muscle tone is normal. LAB REVIEW: 04/21/19 04:15 04/21/19 04:15 04/21/19 04:15: Sodium 140.1, Potassium 3.96, Chloride 107.9 H, Carbon Dioxide 24.1, Anion Gap 12.06, BUN 9.4, Creatinine 0.32 L, Estimated GFR (MDRD) 228.00, BUN/Creatinine Ratio 29.37, Glucose 128.9 H, Calcium 7.98 L, Total Bilirubin 0.15 L, AST 19.7, ALT 9.9, Alkaline Phosphatase 53.6, Total Protein 5.79 L, Albumin 3.09 L, Globulin 2.70, Albumin/Globulin Ratio 1.14 04/21/19 04:15: WBC 10.26 H, RBC 3.84 L, Hgb 9.5 L, Hct 30.3 L, MCV 78.9 L, MCH 24.7 L, MCHC 31.4 L, RDW Coeff of Pamela 0.0 L, Plt Count 149, Immature Gran % ( Auto) 0.7, Neut % (Auto) 72.5, Lymph % (Auto) 21.3, [place] % (Auto) 5.4, Eos % ( Auto) 0.0, Baso % (Auto) 0.1, Immature Gran # (Auto) 0.1, Neut # (Auto) 7.4 H, Lymph # (Auto) 2.2, [place] # (Auto) 0.6, Eos # (Auto) 0.0, Baso # (Auto) 0.0, Anisocytosis 1+, Spherocytes 1+ 04/20/19 06:25: Carbamazepine 11.5 04/20/19 06:25: Valproic Acid 64.44 ASSESSMENT: Please see below. 1. Febrile illness likely viral etiology. 2. Dehydration resolved. 3. The patient has contractures of upper extremities. 4. Restrictive lung disease. PLAN: 1. Echocardiogram because of sinus tachycardia, to evaluate LV function. 2. Saline Lock. Plan and coordination of the patient's care discussed in the presence of Wood Machinist and nurse. CONDITION: Stable SCRIBED BY: ELIZABETH MENDEZ Back Tender Fourdrinier scribed while in presence of service performed by Dr. CRIS LEE on 04/21/19 ([id number])
[2019-04-21] MEDS: MIRALAX PO SCH (08:53)
[2019-04-21] MEDS: ANUCORT-HC RC SCH ×2 (08:54→20:40)
[2019-04-21] MEDS: DIVALPROEX SODIUM 250 MG PO SCH (08:56)
[2019-04-21] MEDS: CARBAMAZEPINE 300 MG PO SCH ×2 (08:57→20:39)
[2019-04-21] MEDS: MONTELUKAST SODIUM 5 MG PO SCH (08:57)
[2019-04-21] MEDS: LOVENOX SUBCUT SCH (08:58)
[2019-04-21] MEDS: FERROUS SULFATE PO SCH (09:00)
[2019-04-21] MEDS ORDERED: FERROUS SULFATE PO SCH (12:00)
[2019-04-21] MEDS: DIVALPROEX SODIUM 375 MG PO SCH (20:40)
[2019-04-21] MEDS: ROCEPHIN 1 GM/50 ML D5W 1 GM in PREMIX 50 ML D5W 1 BAG IV SCH (20:42)
[2019-04-22] MEDS: SOLU-MEDROL 40 MG IVP SCH (04:57)
[2019-04-22 05:03] VITALS: BP 122/71; TEMP 98.5
[2019-04-22] MEDS: DUONEB NEB SCH (05:10)
[2019-04-22] MEDS: CARBAMAZEPINE 300 MG PO SCH (08:34)
[2019-04-22] MEDS: DIVALPROEX SODIUM 250 MG PO SCH (08:34)
[2019-04-22] MEDS: MIRALAX PO SCH (08:34)
[2019-04-22] MEDS: MONTELUKAST SODIUM 5 MG PO SCH (08:34)
[2019-04-22] MEDS: ANUCORT-HC RC SCH (08:35)
[2019-04-22] MEDS: LOVENOX SUBCUT SCH (08:37)
--- NOTE | 2019-04-22 08:45 | ECHO2D ---
Date of Exam: 04/21/19 Ordering Physician: DR. CRIS LEE Room #: 121 Reason for Echo: FEVER WITH TACHYCARDIA M-Mode Normal Adult Results LV Dimensions Normal Adult Results AoV Opening excursions >1.6 >1.6 LVEDD-base- 3.5-5.8 3.5 Ao root dimensions 2.0-3.7 2.7 LVESD-base- 3.1-4.6 L. Atrium dimensions 1.9-3.8 3.7 Post. Wall thickness 0.8-1.1 0.9 IV septum (thickness) 0.7-1.2 0.9 Post. Wall excursion 0.72-1.3 NORMAL Septal motion NORMAL Systolic motion R. Ventricular cavity 1.5-2.0 NORMAL LVEF 60% 70% Paradoxical septal wall motion NORMAL 2-D : 2-D M Mode Echocardiogram was performed using apical four chamber and left parasternal long and short axis views. Mitral, tricuspid and aortic valves appear to be normal. Contractility of the left ventricle seems to be normal, so is the cavity size. Left atrial cavity size and aortic root appear to be normal. There is no pericardial effusion. There is no thrombus noted in the left ventricular or left aortic cavity. No mitral valve prolapse noted. M-MODE: MV: NORMAL AV: NORMAL TV: NORMAL PV: CHAMBER SIZE: NORMAL WALL MOTION: NORMAL PERICARDIUM: NORMAL INTERPRETATION: 1. NORMAL "2" "D" M MODE ECHO MTDD
--- NOTE | 2019-04-22 08:46 | PCM.PROG ---
Attending Provider: ATTENDING PROVIDER: Dr. CRIS LEE DATE OF SERVICE: 04/22/19 SUBJECTIVE: This 43 year old WHITE/ F was hospitalized 04/20/19 with febrile illness. Condition is improved. No symptoms of UTI or respiratory tract infection, has been on Rocephin. REVIEW OF SYSTEMS: CONSTITUTIONAL: No night sweats. No fatigue, malaise, lethargy. No fever or chills. HEENT: Eyes: No visual changes. No eye pain. No eye discharge. ENT: No runny nose. No epistaxis. No sinus pain. No odynophagia. No congestion. RESPIRATORY: No cough, no congestion. No hemoptysis. No shortness of breath. CARDIOVASCULAR: No angina symptoms. No CHF symptoms. No atypical chest pain for CAD. No palpitations. No orthopnea.. GASTROINTESTINAL: Appetite is good. No abdominal pain. No nausea or vomiting. No diarrhea or constipation. No hematemesis. No hematochezia. GENITOURINARY: No urgency. No frequency. No dysuria. No hematuria. No obstructive symptoms. No discharge. No pain. No significant abnormal bleeding. MUSCULOSKELETAL: No musculoskeletal pain; no joint swelling. NEUROLOGICAL: Awake, alert, oriented to time, place and person. No headache. No neck pain. No syncope. No seizures. No dizziness. PSYCHIATRIC: Not anxious. No depression. No suicidal thoughts. No homicidal thoughts. SKIN: No rash. No lesions. No wounds. ENDOCRINE: No unexplained weight loss. No weight gain. HEMATOLOGIC/LYMPHATIC: No anemia. No purpura. No petechiae. No prolonged or excessive bleeding. No palpable lymph nodes. PHYSICAL EXAMINATION: GENERAL: The patient is awake, alert and oriented, lying/sitting in bed in no distress. VITAL SIGNS: Temperature 98.5 F, Pulse 105, Respiratory Rate 20, BP 122/71, Pulse Ox 100% HEENT: Head normocephalic, atraumatic. Eyes: Extraocular muscles are intact. Pupils are equal, round and reactive to light and accommodation. Ears: No lesions. Nose appeared normal. Throat: No exudate or erythema. NECK: Supple. No JVD, no carotid bruit. No lymphadenopathy or thyromegaly. LUNGS: Decreased breath sounds. Clear to auscultation. Percussion note normal. Chest symmetrical. HEART: S1, S2, no S3. No murmurs. No cyanosis or clubbing. No ascites. Pulses: Dorsalis pedis and posterior tibial pulses +1 to +2 both sides. ABDOMEN: Soft. Non-tender. Bowel sounds active. No CVA tenderness. No mass felt. EXTREMITIES: Positive for contractures upper extremities. No edema. Full range of motion of all extremities, equal. NEUROLOGIC: No focal deficit. Cranial nerves II through XII are grossly intact. No headache, no double vision or headache. SKIN: Warm and dry. Intact. Turgor-normal. LYMPHATIC: No palpable lymph nodes/no lymphedema. MUSCULOSKELETAL: Normal joints with no swelling. Muscle tone is normal. LAB REVIEW: 04/21/19 04:15 04/21/19 04:15 ASSESSMENT: 1. Febrile illness likely viral etiology, resolved. 2. Dehydration resolved. 3. The patient has contractures of upper extremities. PLAN: 1. Echocardiogram normal. 2. Discharge home today. 3. Keflex 500 mg b.i.d. times three days. 4. Prednisone 10 mg one a day times three days. Plan and coordination of the patient's care discussed in the presence of Instrument Shop Supervisor and nurse. CONDITION: Stable SCRIBED BY: ELIZABETH MENDEZ Glass Forming Crew Member scribed while in presence of service performed by Dr. CRIS LEE on 04/22/19 ([id number])
--- NOTE | 2019-04-22 11:02 | CM.DICTOOL ---
ADMISSION: 04/20/19 02:43 DISCHARGE: APRIL 22, 2019 DATE OF SERVICE: 04/22/19 FINAL DIAGNOSIS FEVER MILD HEADACHE ANEMIA, CHRONIC CEREBRAL PALSY SEIZURE DISORDER DYSLIPIDEMIA SEVERE CONSTIPATION WITH HEMORRHOIDS CRACKER AND COOKIE MACHINE OPERATOR SHUNT HYSTERECTOMY CLUB FEET TENDON RELEASE LEFT LEG APPENDECTOMY LEFT HIP PINNING LAST VITALS Temp Pulse Resp BP Pulse Ox 98.5 F 105 H 20 122/71 100 04/22/19 04:57 04/22/19 04:57 04/22/19 07:19 04/22/19 04:57 04/22/19 04:57 TAKE THESE MEDICATIONS AT HOME Albuterol/Ipratropium (Duoneb) 1 vial NEB RTBID [facility] Last Admin: 04/22/19 05:10 Dose: 1 vial Ferrous Sulfate (Ferrous Sulfate) 5 ml PO 1200 [facility] Last Admin: 04/21/19 11:50 Dose: 5 ml Hydrocortisone Acetate (Anucort-Hc) 1 supp RC BID [facility] Last Admin: 04/22/19 08:35 Dose: 1 supp Non-Formulary Medication (Carbamazepine [Carbatrol]) 300 mg PO BID [facility] Last Admin: 04/22/19 08:34 Dose: 300 mg Non-Formulary Medication (Divalproex Sodium [Depakote Sprinkle]) 250 mg PO QAM [facility] Last Admin: 04/22/19 08:34 Dose: 250 mg Non-Formulary Medication (Divalproex Sodium [Depakote Sprinkle]) 375 mg PO BEDTIME [facility] Last Admin: 04/21/19 20:40 Dose: 375 mg Non-Formulary Medication (Montelukast Sodium [Singulair]) 5 mg PO DAILY [facility] Last Admin: 04/22/19 08:34 Dose: 5 mg Polyethylene Glycol (Miralax) 17 gm PO DAILY [facility] Last Admin: 04/22/19 08:34 Dose: 17 gm KEFLEX 500 MG BID FOR 3 DAYS PREDNISOLONE LIQUID 10 MG DAILY FOR 3 DAYS ALLERGIES chocolate flavor Allergy (Severe, Verified 04/19/19 21:29) Migraines Sulfa (Sulfonamide Antibiotics) Allergy (Severe, Verified 04/19/19 21:29) seizures azithromycin [From Zithromax] Allergy (Verified 04/19/19 21:29) clarithromycin [From Biaxin] Allergy (Verified 04/19/19 21:29) erythromycin base [Erythromycin Base] Allergy (Verified 04/19/19 21:29) morphine Allergy (Verified 04/19/19 21:29) propoxyphene HCl [From Darvon] Allergy (Verified 04/19/19 21:29) sucralfate [From Carafate] Adverse Reaction (Severe, Verified 04/19/19 21:29) seizures Proton Pump Inhibitors Adverse Reaction (Intermediate, Verified 04/19/19 21:29) leukopenia hydromorphone HCl [From Dilaudid] Adverse Reaction (Verified 04/19/19 21:29) DISCONTINUED MEDICATIONS NONE NEW PRESCRIPTIONS: KEFLEX SUSPENSION 50O MG BID FOR 3 DAYS PREDNISOLONE LIQUID 10 MG DAILY FOR 3 DAYS TAKE WITH FOOD SMOKING: NOT APPLICABLE DISEASE SPECIFIC EDUCATION: MEDICATIONS FEVER LAB REVIEW: 04/21/19 04:15 04/21/19 04:15 PLAN: DISCHARGE HOME WITH PARENTS DIET: REGULAR SOFT FOODS TOLERATED LIQUIDS TOLERATED RESUME ALL HOME MEDICATIONS PLEASE CONTINUE NEBULIZER TREATMENTS AT LEAST 1-2 TIMES DAILY UNTIL APPOINTMENT NEXT WEEK TURN FREQUENTLY INCONTINENT CARE PRN DECUBITUS/SKIN PRECAUTIONS PRN AN APPOINTMENT IS SCHEDULED WITH DR. LEE ON April AT 11 AM MAY RETURN TO "[facility]" ON April CODE STATUS: FULL CODE LIA IS ALERT TO PERSON, PLACE. LIA LIVES AT HOME WITH HER PARENTS. THE MOTHER, GEORGE IS AGREEABLE TO DISCHARE PLANS FOR TODAY. HER PARENTS PROVIDE TOTAL CARE FOR LIA. LIA IS PLEASANT AND COOPERATIVE. SHE IS RELIANT ON HER PARENTS FOR TOTAL CARE DUE TO CERBRAL PALSY WITH CONTRACTURES TO THE UPPER EXTREMITIES. SHE IS NON-AMBULATORY AND THE PARENTS LIFT HER FROM THE BED TO THE CHAIR OR USE A MECHANICAL LIFT AT HOME FOR GETTING HER OUT OF THE BED. SHE ENJOYS SITTING IN HER ELECTRIC WHEELCHAIR AND GOING TO [facility]. SHE IS INCONTINENT OF BOWEL AND BLADDER. SKIN IS INTACT. NO ABDOMINAL PAIN OR NAUSEA. BOWELS ARE MOVING REGULARLY. MEAL INTAKES ARE GOOD AT 50-75%. NO DIFFICULTY SWALLOWING OR CHOKING EPISODES REPORTED. MEDICAL EQUIPMENT IN THE HOME INCLUDES AN ELECTRIC WHEELCHAIR, HOSPITAL BED, MECHANICAL LIFT AND NEBULIZER. AGAIN, HER PARENTS PROVIDE TOTAL CARE. CRIS LEE MD
--- NOTE | 2019-04-22 12:57 | PN ---
DATE OF SERVICE: 04/20/19 SUBJECTIVE: The patient was seen and examined with the nurse practitioner. The patient's condition is stable. She is practically afebrile, eating well. Cardiovascular status and respiratory status stable. The patient will undergo echocardiogram. TIME SPENT: More than 30 minutes. Plan and coordination of the patient's care discussed in the presence of nurse. VARINDER
--- NOTE | 2019-04-23 13:06 | DS ---
DATE OF SERVICE: 04/22/19 FINAL DIAGNOSIS: 1. FEVER 2. MILD HEADACHE 3. ANEMIA, CHRONIC 4. CEREBRAL PALSY 5. SEIZURE DISORDER 6. DYSLIPIDEMIA 7. SEVERE CONSTIPATION WITH HEMORRHOIDS 8. 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 HYSTERECTOMY 10. CLUB FEET 11. TENDON RELEASE LEFT LEG 12. APPENDECTOMY 13. LEFT HIP PINNING LAST VITALS Temp Pulse Resp BP Pulse Ox 98.5 F 105 H 20 122/71 100 04/22/19 04:57 04/22/19 04:57 04/22/19 07:19 04/22/19 04: 57 04/22/19 04:57 DISCHARGE INSTRUCTIONS: 1. DISCHARGE HOME WITH PARENTS. 2. AN APPOINTMENT IS SCHEDULED WITH DR. LEE ON April AT 11 AM. 2. MAY RETURN TO "[facility]" ON April. MEDICATIONS AT DISCHARGE: Albuterol/Ipratropium (Duoneb) 1 vial NEB RTBID [facility] Last Admin: 04/22/19 05:10 Dose: 1 vial Ferrous Sulfate (Ferrous Sulfate) 5 ml PO 1200 [facility] Last Admin: 04/21/19 11:50 Dose: 5 ml Hydrocortisone Acetate (Anucort-Hc) 1 supp RC BID [facility] Last Admin: 04/22/19 08:35 Dose: 1 supp Non-Formulary Medication (Carbamazepine ) 300 mg PO BID [facility] Last Admin: 04/22/19 08:34 Dose: 300 mg Non-Formulary Medication (Divalproex Sodium ) 250 mg PO QAM [facility] Last Admin: 04/22/19 08:34 Dose: 250 mg Non-Formulary Medication (Divalproex Sodium ) 375 mg PO BEDTIME [facility] Last Admin: 04/21/19 20:40 Dose: 375 mg Non-Formulary Medication (Montelukast Sodium ) 5 mg PO DAILY [facility] Last Admin: 04/22/19 08:34 Dose: 5 mg Polyethylene Glycol (Miralax) 17 gm PO DAILY [facility] Last Admin: 04/22/19 08:34 Dose: 17 gm KEFLEX 500 MG BID FOR 3 DAYS PREDNISOLONE LIQUID 10 MG DAILY FOR 3 DAYS NEW PRESCRIPTIONS: KEFLEX SUSPENSION 50O MG BID FOR 3 DAYS PREDNISOLONE LIQUID 10 MG DAILY FOR 3 DAYS TAKE WITH FOOD DISCONTINUED MEDICATIONS: NONE DIET INSTRUCTIONS: REGULAR SOFT FOODS TOLERATED LIQUIDS TOLERATED ACTIVITY: TURN FREQUENTLY INCONTINENT CARE PRN DECUBITUS/SKIN PRECAUTIONS PRN SMOKING: NOT APPLICABLE DISEASE SPECIFIC EDUCATION: MEDICATIONS FEVER HOSPITAL COURSE: 43-year-old white female with cerebral palsy was hospitalized with febrile illness. The patient's presentation in the emergency room, had fever of 101.7 with tachypnea. She was obviously in mild distress, dehydrated. The patient was given IV fluids, IV antibiotics. Cause of her illness was undetermined, likely viral. The patient did well in the hospital. Her appetite had improved. Her mental status remained normal. At time of discharge, the patient's condition was stable. The patient was discharged home on Keflex. The patient is to be followed as an outpatient within 7 days. The patient's parents were present in the room all the time. CONDITION AT TIME OF DISCHARGE: Stable. TIME SPENT: More than 60 minutes. MTDD
--- NOTE | 2019-04-23 13:15 | PN ---
BILLING 04/20/19 ADMISSION DAY LEVEL 5 04/21/19 INTERMEDIATE 04/22/19 DISCHARGE MTDD
== END 2019-04-22 12:15 | disposition home or self-care (01) | DRG 103 ==
LOC: ED 21:19 → MEDSURG B 04-20 02:43
PROVIDERS: ADMIT Internal Medicine; ATTEND Internal Medicine
DX: G80.9 Cerebral palsy, unspecified; D64.9 Anemia, unspecified; R51 Headache; R53.1 Weakness; G40.909 Epilepsy, unspecified, not intractable, without status epilepticus; K59.00 Constipation, unspecified; R06.82 Tachypnea, not elsewhere classified; E78.5 Hyperlipidemia, unspecified; F41.9 Anxiety disorder, unspecified; E86.0 Dehydration

== ENCOUNTER 2022-05-08 17:10 | Inpatient (IN) ==
[2022-05-08] MEDS ORDERED: NITROSTAT SL PRN (17:56)
[2022-05-08] MEDS ORDERED: TYLENOL PO PRN (17:56)
[2022-05-08] MEDS ORDERED: ATROPINE SULFATE PFS IVP PRN (17:56)
[2022-05-08 18:29] VITALS: BMI 11.2
[2022-05-08 19:11] LABS: BASOPHILS # (AUTO) 0.1 K/uL (0-0.2); BASOPHILS % (AUTO) 0.5 % (0.0-3.0); EOSINOPHILS # (AUTO) 0.2 K/ul (0.0-0.7); EOSINOPHILS % (AUTO) 2.5 % (0.0-7.0); HEMATOCRIT 37.9 % (37.0-47.0); HEMOGLOBIN 11.7 g/dl (12.0-16.0); IMMATURE GRANULOCYTE # (AUTO) 0.1 (0.0-1.0); IMMATURE GRANULOCYTE % (AUTO) 1.4 % (0.0-5.0); LYMPHOCYTES # (AUTO) 1.6 K/uL (0.60-3.4); MEAN CORPUSCULAR HEMOGLOBIN 28.2 pg (27.0-31.0); MEAN CORPUSCULAR HGB CONC 30.9 (31.8-35.4); MEAN CORPUSCULAR VOLUME 91.3 fl (81.0-99.0); MONOCYTES # (AUTO) 0.8 K/uL (0.4-2.0); MONOCYTES % (AUTO) 8.6 (0-10); NEUTROPHILS # (AUTO) 6.5 K/ul (2.0-6.9); PLATELET COUNT 302 10^3/uL (140-440); RED BLOOD COUNT 4.15 10^6/ul (4.20-5.40)
[2022-05-08 19:25] LABS: ALANINE AMINOTRANSFERASE 10.5 U/L (0-35); ALBUMIN 3.64 g/dL (3.5-5.0); ALKALINE PHOSPHATASE 111.6 U/L (38-126); ASPARTATE AMINO TRANSFERASE 33.3 U/L (14-36); BILIRUBIN,TOTAL 0.49 mg/dL (0.2-1.3); CALCIUM 8.87 mg/dL (8.4-10.2); CARBON DIOXIDE 21.4 mmol/L (22-30.0); CHLORIDE 104.4 mmol/L (98-107); CREATININE 0.23 mg/dL (0.60-1.30); POTASSIUM 4.04 mmol/L (3.5-5.1); SODIUM 135.3 mmol/L (134.5-145); TOTAL PROTEIN 7.85 g/dL (6.3-8.2)
[2022-05-08 19:32] LABS: CREATINE KINASE 29.8 U/L (30-135)
--- NOTE | 2022-05-08 19:42 | DI ---
EXAM: Frontal view of the chest. HISTORY: Follow-up lung nodule. COMPARISON: CT chest 05/06/2022. FINDINGS: Chronic consolidation at the left lung base and left-sided pleural thickening and small left pleural effusion appear unchanged. Lung nodule seen on CT is not visible radiographically. Normal heart size. Surgical clips project over the lower mediastinum. Ventriculoatrial shunt cathete r noted. No new finding in the lungs. No visible pneumothorax. Bones are diffusely demineralized. Dextroconvex scoliosis. IMPRESSION: 1. Unchanged patchy consolidation at the left base and chronic small left pleural effusion. Nodule s een on CT is not well demonstrated by radiograph.
[2022-05-08 19:45] LABS: TROPONIN I < 0.012 ng/ml (0.0000-0.120)
[2022-05-08] MEDS ORDERED: SODIUM CHLORIDE IV ONE (21:00)
[2022-05-08] MEDS ORDERED: VANCOMYCIN IV ONE (21:00)
[2022-05-08] MEDS: MOTRIN SUSP UD PO PRN (21:46)
[2022-05-08] MEDS: ROCEPHIN 1 GM/50 ML D5W 1 GM/50 ML BAG IV SCH (22:42)
[2022-05-08] MEDS: SODIUM CHLORIDE 1,000 ML IV SCH (22:43)
[2022-05-09] MEDS ORDERED: IBUPROFEN PO PRN (03:06)
[2022-05-09] MEDS ORDERED: [UNRECOGNIZED DRUG - OTHER] PO PRN (03:06)
[2022-05-09 05:32] LABS: BASOPHILS # (AUTO) 0.1 K/uL (0-0.2); BASOPHILS % (AUTO) 0.9 % (0.0-3.0); EOSINOPHILS # (AUTO) 0.5 K/ul (0.0-0.7); HEMATOCRIT 32.5 % (37.0-47.0); HEMOGLOBIN 10.4 g/dl (12.0-16.0); IMMATURE GRANULOCYTE # (AUTO) 0.2 (0.0-1.0); IMMATURE GRANULOCYTE % (AUTO) 1.8 % (0.0-5.0); LYMPHOCYTES # (AUTO) 2.2 K/uL (0.60-3.4); LYMPHOCYTES % (AUTO) 19.6 (10.0-50.0); MEAN CORPUSCULAR HEMOGLOBIN 27.6 pg (27.0-31.0); MEAN CORPUSCULAR VOLUME 86.2 fl (81.0-99.0); MONOCYTES # (AUTO) 1.3 K/uL (0.4-2.0); NEUTROPHILS # (AUTO) 7.1 K/ul (2.0-6.9); NEUTROPHILS % (AUTO) 62.7 % (42.2-75.2); PLATELET COUNT 333 10^3/uL (140-440); RDW COEFFICIENT OF VARIATION 13.8 % (11.6-14.8); RED BLOOD COUNT 3.77 10^6/ul (4.20-5.40); WHITE BLOOD COUNT 11.37 K/ul (4.6-10.2)
[2022-05-09 05:43] LABS: ALANINE AMINOTRANSFERASE 10.4 U/L (0-35); ALBUMIN 3.49 g/dL (3.5-5.0); ALKALINE PHOSPHATASE 110.9 U/L (38-126); ASPARTATE AMINO TRANSFERASE 31.5 U/L (14-36); BILIRUBIN,TOTAL 0.37 mg/dL (0.2-1.3); BLOOD UREA NITROGEN 26.9 mg/dL (7-17); CALCIUM 8.68 mg/dL (8.4-10.2); CARBON DIOXIDE 25.5 mmol/L (22-30.0); CHLORIDE 104.2 mmol/L (98-107); CREATINE KINASE 24.6 U/L (30-135); CREATININE 0.26 mg/dL (0.60-1.30); GLUCOSE 101.8 mg/dL (74-106); POTASSIUM 3.88 mmol/L (3.5-5.1); SODIUM 136.6 mmol/L (134.5-145); TOTAL PROTEIN 7.03 g/dL (6.3-8.2)
[2022-05-09 05:57] LABS: TROPONIN I < 0.012 ng/ml (0.0000-0.120)
[2022-05-09] MEDS ORDERED: DUONEB NEB PRN (08:17)
[2022-05-09] MEDS: SODIUM CHLORIDE 1,000 ML IV SCH (08:27)
[2022-05-09] MEDS: SODIUM CHLORIDE IV SCH ×3 (08:28→20:59)
[2022-05-09] MEDS: VANCOMYCIN IV SCH ×3 (08:28→20:59)
[2022-05-09] MEDS ORDERED: TEGRETOL PO SCH ×2 (09:00)
[2022-05-09] MEDS: ROCEPHIN 1 GM/50 ML D5W 1 GM/50 ML BAG IV SCH (09:00)
[2022-05-09] MEDS ORDERED: AMOXICILLIN 250 MG/5 ML PO SCH (09:00)
[2022-05-09] MEDS: FERROUS SULFATE PO SCH (09:04)
[2022-05-09] MEDS: MIRALAX PO SCH ×2 (09:04→09:14)
[2022-05-09] MEDS: VITAMIN D PO SCH ×2 (09:04→09:16)
[2022-05-09] MEDS: DEPAKOTE SPRINKLES PO SCH ×2 (09:05→21:07)
--- NOTE | 2022-05-09 10:32 | HP ---
DATE OF SERVICE: 05/08/22 REASON FOR HOSPITALIZATION/HISTORY OF PRESENT ILLNESS: Fever 05/06-went to ER positive blood cultures gram positive cocci. Hurting- clenching teeth-fever up to 101. CT of chest showed new pulmonary nodule with liver masses. 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 HEENT: No sinus drainage, no sore throat. RESPIRATORY: No cough, no congestion. CARDIOVASCULAR: No atypical chest pain for coronary artery disease. No angina, CHF symptoms, palpitations or shortness of breath. GASTROINTESTINAL: Abdominal pain. No GERD. GENITOURINARY: No hematuria, no prostatism, no polyuria. QUANTITATIVE EQUITY HEAD: No blackout, no dizziness, no headache, no double vision. GAIT: Wheelchair MUSCULOSKELETAL: No osteoarthritis pain, no joint swelling. ENDOCRINE: No weight loss, no weight gain. SKIN: Not dry, no rash. PSYCHIATRIC: Not anxious, no depression, no suicidal thoughts, no homicidal thoughts. SOCIAL HISTORY: Marital Status: Single. Alcohol Usage: No. Tobacco Usage: No. FAMILY HISTORY: Adopted MEDICATIONS: Carbamazepine 300mg ER BID Depakote sprinkle 125mg capsule, two QAM, three PO at bedtime Miralax daily DUO NEBS PRN Iron liquid one tsp ALLERGIES: Nexium Biaxin Carafate Dilaudid Z-pack Morphine Erythromycin PHYSICAL EXAMINATION: V/S: Pulse 86, Blood pressure 96, Temperature 97.9, O2 saturation 99%. GENERAL APPEARANCE: Oriented times three. HEENT: Pale and clammy. NECK: No JVP, no bruits. RESPIRATORY: Decreased breath sounds. CARDIOVASCULAR: S1, S2, no S3, no murmur. No cyanosis, clubbing. No ascites. GI/ABDOMEN: Abdominal tenderness, all quadrants. Bowel sounds are active. EXTREMITIES: edema, pulses +1, equal. Contractures. QUANTITATIVE EQUITY HEAD: Deep tendon reflexes, sensory, motor and gait all normal. RECTAL: Unable to do colonoscopy/PELVIC: Refused ASSESSMENT: 1. Sepsis 2. Dehydration 3. Liver masses 4. Left upper lobe lung nodule 5. Positive COVID 11/21 antibody 6. Internal hemorrhoids 7. Weight loss 8. Restrictive lung disease 9. 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 Admit 2. Routine telemetry orders 3. CBC and CMP now and daily 4. Depakote level 5. Carbamazepine level 6. U/A ok to cath 7. CT abdomen and pelvis with and without 8. Ibuprofen liquid 100mg/5ml-10ml PO Q 6 hours PRN 9. Tylenol with codeine liquid 120/12mg/5ml- 5ml PO Q 6 hours PRN 10.Regular diet 11. Blood cultures times two 12. Continue home medications. 13. Rocephin IV daily Pharmacy to dose 14. Normal saline IV at 50cc an hour 15. IV Vancomycin Pharmacy to dose TIME SPENT: More than 70 minutes. MTDD
--- NOTE | 2022-05-09 11:24 | CT ---
EXAM: CT of the abdomen and pelvis with and without contrast. HISTORY: T cerebral palsy, abnormal liver seen on CT scan of the chest. COMPARISON: 02/14/2021 CONTRAST: 80 ml Omnipaque-300. TECHNIQUE: Contiguous axial images at 5 mm intervals were obtained from lung bases to the pubic symp hysis. The study was performed before and after IV contrast. Oral contrast was not given. FINDINGS: Chest: The lung bases are visualized and there is chronic atelectasis in the left lower lobe. Abdomen: Liver: Multiple low-density lesions are noted in the liver. And 5 cm mass is present in the left lo be of the liver this is in segment two. Seven for a there is a 4 cm low-density mass. In the segmen t eight there is a 3 cm mass. Other smaller hepatic lesions are also present. It cannot be determin ed these are metastatic due to infection or neoplasm. Gallbladder: The gallbladder is not identified. Pancreas: The pancreas demonstrates normal homogeneous enhancement without solid masses or surroundi ng inflammation. Spleen: The spleen demonstrates normal homogeneous enhancement. No mass lesions are identified. Adrenal glands: Adrenal glands are not identified. Kidneys: Renal contours demonstrate uniform and symmetric excretion of contrast. Ureters: The urete rs are unobstructed and follow a normal course in the abdomen. Aorta: The aorta is well opacified. There is no aneurysm or dissection. Retroperitoneum: There is no significant retroperitoneal or mesenteric adenopathy. No fluid collec tions or mass lesions. Bowel: Copious amount of stool is noted throughout the colon. There is thickening of the wall of th e rectosigmoid junction. Neoplasm cannot be excluded. Bladder: The bladder is well distended and appears normal. Skeletal structures: There is a deformity of the left hip. Left femoral head is subluxed similar to prior exam. IMPRESSION: Multiple hepatic lesions suspicious for metastatic disease. 2. Thickening of the rectal wall is noted. This may be either proctitis or possibly neoplasm. 3. There is lack of intra-abdominal fat limiting evaluation of this exam. 4. Chronic subluxation of the left hip with post surgical hardware in the left femur All CT scans are performed using dose optimization techniques as appropriate to the performed exam an d include at least one of the following: Automated exposure control, adjustment of the mA and/or kV according t o size, and the use of iterative reconstruction technique.
[2022-05-09] MEDS: MOTRIN SUSP UD PO PRN (16:12)
[2022-05-10 05:27] LABS: BASOPHILS # (AUTO) 0.1 K/uL (0-0.2); EOSINOPHILS # (AUTO) 0.6 K/ul (0.0-0.7); EOSINOPHILS % (AUTO) 4.3 % (0.0-7.0); HEMATOCRIT 31.1 % (37.0-47.0); IMMATURE GRANULOCYTE # (AUTO) 0.2 (0.0-1.0); IMMATURE GRANULOCYTE % (AUTO) 1.7 % (0.0-5.0); LYMPHOCYTES # (AUTO) 2.6 K/uL (0.60-3.4); LYMPHOCYTES % (AUTO) 19.8 (10.0-50.0); MEAN CORPUSCULAR HEMOGLOBIN 27.9 pg (27.0-31.0); MEAN CORPUSCULAR HGB CONC 32.2 (31.8-35.4); MEAN CORPUSCULAR VOLUME 86.9 fl (81.0-99.0); MONOCYTES # (AUTO) 1.4 K/uL (0.4-2.0); MONOCYTES % (AUTO) 10.8 (0-10); NEUTROPHILS # (AUTO) 8.1 K/ul (2.0-6.9); NEUTROPHILS % (AUTO) 62.4 % (42.2-75.2); PLATELET COUNT 313 10^3/uL (140-440); RDW COEFFICIENT OF VARIATION 13.8 % (11.6-14.8); RED BLOOD COUNT 3.58 10^6/ul (4.20-5.40); WHITE BLOOD COUNT 13.02 K/ul (4.6-10.2)
[2022-05-10 05:42] LABS: ALANINE AMINOTRANSFERASE 10.2 U/L (0-35); ALBUMIN 3.1 g/dL (3.5-5.0); ALKALINE PHOSPHATASE 96.4 U/L (38-126); ASPARTATE AMINO TRANSFERASE 27.7 U/L (14-36); BILIRUBIN,TOTAL 0.29 mg/dL (0.2-1.3); BLOOD UREA NITROGEN 7.2 mg/dL (7-17); CALCIUM 8.27 mg/dL (8.4-10.2); CHLORIDE 109.6 mmol/L (98-107); CREATININE 0.27 mg/dL (0.60-1.30); GLUCOSE 95.9 mg/dL (74-106); POTASSIUM 3.7 mmol/L (3.5-5.1); SODIUM 138.9 mmol/L (134.5-145); TOTAL PROTEIN 6.37 g/dL (6.3-8.2)
[2022-05-10] MEDS: SODIUM CHLORIDE 1,000 ML IV SCH (06:07)
[2022-05-10] MEDS ORDERED: IMODIUM A-D PO PRN ×2 (08:36→09:00)
[2022-05-10] MEDS: TYLENOL/CODEINE ELIXIR 120/12 MG/5 ML PO PRN ×2 (08:55→17:06)
[2022-05-10] MEDS: ROCEPHIN 1 GM/50 ML D5W 1 GM/50 ML BAG IV SCH (08:55)
[2022-05-10] MEDS: DEPAKOTE SPRINKLES PO SCH ×2 (08:55→20:38)
[2022-05-10] MEDS: MOTRIN SUSP UD PO SCH ×2 (08:55→20:34)
[2022-05-10] MEDS: VITAMIN D PO SCH (08:56)
--- NOTE | 2022-05-10 10:07 | PCM.PROG ---
Attending Provider: ATTENDING PROVIDER: Dr. CRIS LEE This patient is seen with Maria Castellanos, Nurse Practitioner. DATE OF SERVICE: 05/10/22 SUBJECTIVE: This 46 year old /WHITE F was hospitalized 05/08/22. In significant amount of pain. Has been having extreme diarrhea. CT abdomen reviewed with family. All in agreement for palliative care. Prognosis is porr. Goal just to keep the patient comfortable and make pain manageable so she can transition to home. REVIEW OF SYSTEMS: CONSTITUTIONAL: No night sweats. No fatigue, malaise, lethargy. No fever or chills. Generalized pain. Weakness. HEENT: Eyes: No visual changes. No eye pain. No eye discharge. ENT: No runny nose. No epistaxis. No sinus pain. No odynophagia. No congestion. RESPIRATORY: No cough, no congestion. No hemoptysis. No shortness of breath. CARDIOVASCULAR: No angina symptoms. No CHF symptoms. No atypical chest pain for CAD. No palpitations. No orthopnea.. GASTROINTESTINAL: Abdominal pain. No nausea or vomiting. Diarrhea. No hematemesis. No hematochezia. GENITOURINARY: No urgency. No frequency. No dysuria. No hematuria. No obstructive symptoms. No discharge. No pain. No significant abnormal bleeding. MUSCULOSKELETAL: No musculoskeletal pain; no joint swelling. NEUROLOGICAL: Awake, alert, oriented to time, place and person. No headache. No neck pain. No syncope. No seizures. No dizziness. PSYCHIATRIC: Not anxious. No depression. No suicidal thoughts. No homicidal thoughts. SKIN: No rash. No lesions. No wounds. ENDOCRINE: No unexplained weight loss. No weight gain. HEMATOLOGIC/LYMPHATIC: No anemia. No purpura. No petechiae. No prolonged or excessive bleeding. No palpable lymph nodes. PHYSICAL EXAMINATION: GENERAL: The patient is awake, alert and oriented, lying in bed in no distress. VITAL SIGNS: Temperature 97.1 F, Pulse 102, Respiratory Rate 17, BP 106/66, Pulse Ox 99% HEENT: Head normocephalic, atraumatic. Eyes: Extraocular muscles are intact. Pupils are equal, round and reactive to light and accommodation. Ears: No lesions. Nose appeared normal. Throat: No exudate or erythema. NECK: Supple. No JVD, no carotid bruit. No lymphadenopathy or thyromegaly. LUNGS: Diminished breath sounds. Clear to auscultation. Percussion note normal. Chest symmetrical. HEART: S1, S2, no S3. No murmurs. No cyanosis or clubbing. No ascites. Pulses: Dorsalis pedis and posterior tibial pulses +1 to +2 both sides. ABDOMEN: Soft. Non-tender. Bowel sounds active. No CVA tenderness. No mass felt. Defused abdominal tenderness. EXTREMITIES: No edema. Full range of motion of all extremities, equal. Multiple contractures. Mal nutrition. NEUROLOGIC: No focal deficit. Cranial nerves II through XII are grossly intact. No headache. No double vision. SKIN: Not dry. Intact. Turgor-normal. LYMPHATIC: No palpable lymph nodes/no lymphedema. MUSCULOSKELETAL: Normal joints with no swelling. Muscle tone is normal. LAB REVIEW: 05/10/22 05:10 05/10/22 05:10 05/10/22 05:10: Sodium 138.9, Potassium 3.70, Chloride 109.6 H, Carbon Dioxide 25.0, Anion Gap 8.00, BUN 7.2, Creatinine 0.27 L, Estimated GFR (MDRD) 273.00, BUN/Creatinine Ratio 26.66, Glucose 95.9, Calcium 8.27 L, Total Bilirubin 0.29, AST 27.7, ALT 10.2, Alkaline Phosphatase 96.4, Total Protein 6.37, Albumin 3.10 L, Globulin 3.27, Albumin/Globulin Ratio 0.94 05/10/22 05:10: WBC 13.02 H, RBC 3.58 L, Hgb 10.0 L, Hct 31.1 L, MCV 86.9, MCH 27.9, MCHC 32.2, RDW Coeff of Pamela 13.8, Plt Count 313, Immature Gran % (Auto) 1.7, Neut % (Auto) 62.4, Lymph % (Auto) 19.8, [place] % (Auto) 10.8 H, Eos % (Auto) 4.3, Baso % (Auto) 1.0, Neut # (Auto) 8.1 H, Lymph # (Auto) 2.6, [place] # (Auto) 1.4, Eos # (Auto) 0.6, Baso # (Auto) 0.1, Immature Gran # (Auto) 0.2 05/10/22 05:10: Vancomycin Trough 7.736 L 05/08/22 19:10: Carbamazepine 10.0 ASSESSMENT: Please see below. 1. Sepsis 2. Dehydration 3. Multiple liver metastasis PLAN: 1. Refer to [facility] 2. At this point the patient would be unable to tolerate any further testing or evaluation. Family wishes to keep the patient comfort which is believed is the most appropriate. Goal is to manage pain here so she can be discharged home. 3. Discontinue Vancomycin 4. Ibuprofen twice a day scheduled. Plan and coordination of the patient's care discussed in the presence of Nurse Researcher and nurse. SCRIBED BY: Augusta WATERMAN scribed while in presence of service performed by Dr. Lee/Maria Castellanos APRN on 05/10/22 ([id number])
--- NOTE | 2022-05-10 12:40 | PN ---
DATE OF SERVICE: 05/08/22 SUBJECTIVE: The patient was seen and examined with the Nurse Practitioner and she was hospitalized through the office. The patient's plan of action was formulated. The patient has C of the colon with metastasis to the liver. Family does not want any other aggressive measures. The patient was still having fever. She is going to be hospitalized with diagnosis of Sepsis, dehydration from malignancy with metastasis to the liver. PROGNOSIS: Poor. TIME SPENT: More than 30 minutes. Plan and coordination of the patient's care discussed in the presence of nurse. VARINDER
--- NOTE | 2022-05-10 14:34 | PN ---
DATE OF SERVICE: 05/09/22 SUBJECTIVE: 46 year old female who has cerebral palsy was hospitalized with sepsis and dehydration. The patient had positive blood cultures. The patient's other significant findings this patient has metastatic liver disease likely from C of the colon with weight loss. REVIEW OF SYSTEMS: CONSTITUTIONAL: No night sweats. No fatigue, malaise, lethargy. No fever or chills. Weak. Not answer questions but she is awake. HEENT: Eyes: No visual changes. No eye pain. No eye discharge. ENT: No runny nose. No epistaxis. No sinus pain. No sore throat. No odynophagia. No congestion. RESPIRATORY: No cough, no congestion. No hemoptysis. No shortness of breath. CARDIOVASCULAR: No angina symptoms. No CHF symptoms. No atypical chest pain for CAD. No palpitations. No PND. No orthopnea. GASTROINTESTINAL: No abdominal pain. No nausea or vomiting. No diarrhea or constipation. No hematemesis. No hematochezia. GENITOURINARY: No urgency. No frequency. No dysuria. No hematuria. No obstructive symptoms. No discharge. No pain. No significant abnormal bleeding. MUSCULOSKELETAL: No musculoskeletal pain; no joint swelling. NEUROLOGICAL: No headache. No neck pain. No syncope. No seizures. No dizziness. PSYCHIATRIC: Not anxious. No depression. No suicidal thoughts. No homicidal thoughts. SKIN: No rash. No lesions. No wounds. ENDOCRINE: No unexplained weight loss. No weight gain. HEMATOLOGIC/LYMPHATIC: No anemia. No purpura. No petechiae. No prolonged or excessive bleeding. No palpable lymph nodes. PHYSICAL EXAMINATION: VITAL SIGNS: Temperature 96.8, pulse 87, respiratory rate 18, blood pressure 115/80 and pulse ox 94%. HEENT: Head normocephalic, atraumatic. Eyes: Extraocular muscles are intact. Pupils are equal, round and reactive to light and accommodation. Ears: No lesions. Nose appeared normal. Throat: No exudate or erythema. NECK: Supple. No JVD, no carotid bruit. No lymphadenopathy or thyromegaly. LUNGS:Decreased breath sounds but clear to auscultation. Percussion note normal. Chest symmetrical. HEART: S1, S2, no S3. No murmurs. No cyanosis or clubbing. No ascites. Pulses: Dorsalis pedis and posterior tibial pulses +1 to +2 bilaterally. ABDOMEN: Soft. Nontender. Bowel sounds active. No CVA tenderness. No mass felt. EXTREMITIES: No edema. Full range of motion of all extremities, equal. NEUROLOGIC: No focal deficit. Cranial nerves II through XII are grossly intact. No headache. No double vision. SKIN: Not dry. Intact. Turgor - normal. LYMPHATIC: No palpable lymph nodes/no lymphedema. MUSCULOSKELETAL: Normal joints with no swelling. Muscle tone is normal. LABS: Hgb 10.4, hct 32, WBC 11,000 normal differential, creatinine 0.2, BUN 26, potassium 3.8. ASSESSMENT: 1. Sepsis etiology likely respiratory tract infection could be from urinary tract infection 2. Dehydration seems to be resolved 3. Metastatic liver disease likely from C of the colon with weight loss Over all physical status has declined she weighs 52 pounds, extremely weak. She is more or less comfort measures. She is DNR. She is going to be on Hospice once she is discharged from the hospital. The patient's parents are in the room. Case discussed in detail. CT scan of the abdomen showed multiple hepatic lesion suspicious for metastatic disease. Thickening of the rectal wall was noted. Chronic subluxation of left hip noted, poor surgical hardware in place. TIME SPENT: More than 30 minutes. Plan and coordination of the patient's care discussed in the presence of nurse. VARINDER
[2022-05-11] MEDS: SODIUM CHLORIDE 1,000 ML IV SCH ×3 (01:21→20:07)
[2022-05-11] MEDS: TYLENOL/CODEINE ELIXIR 120/12 MG/5 ML PO PRN ×3 (03:06→20:10)
[2022-05-11 06:12] LABS: BASOPHILS # (AUTO) 0.1 K/uL (0-0.2); BASOPHILS % (AUTO) 1.4 % (0.0-3.0); EOSINOPHILS # (AUTO) 0.7 K/ul (0.0-0.7); EOSINOPHILS % (AUTO) 7.8 % (0.0-7.0); HEMATOCRIT 30.2 % (37.0-47.0); HEMOGLOBIN 9.4 g/dl (12.0-16.0); IMMATURE GRANULOCYTE # (AUTO) 0.4 (0.0-1.0); IMMATURE GRANULOCYTE % (AUTO) 3.7 % (0.0-5.0); LYMPHOCYTES # (AUTO) 2.8 K/uL (0.60-3.4); LYMPHOCYTES % (AUTO) 29.7 (10.0-50.0); MEAN CORPUSCULAR HEMOGLOBIN 28.3 pg (27.0-31.0); MEAN CORPUSCULAR HGB CONC 31.1 (31.8-35.4); MONOCYTES # (AUTO) 0.8 K/uL (0.4-2.0); NEUTROPHILS # (AUTO) 4.5 K/ul (2.0-6.9); NEUTROPHILS % (AUTO) 48.4 % (42.2-75.2); PLATELET COUNT 276 10^3/uL (140-440); RDW COEFFICIENT OF VARIATION 14.2 % (11.6-14.8); RED BLOOD COUNT 3.32 10^6/ul (4.20-5.40); WHITE BLOOD COUNT 9.37 K/ul (4.6-10.2)
[2022-05-11 06:24] LABS: ALANINE AMINOTRANSFERASE 9.4 U/L (0-35); ALBUMIN 2.76 g/dL (3.5-5.0); ALKALINE PHOSPHATASE 75.3 U/L (38-126); ASPARTATE AMINO TRANSFERASE 31.2 U/L (14-36); BILIRUBIN,TOTAL 0.28 mg/dL (0.2-1.3); CALCIUM 7.92 mg/dL (8.4-10.2); CARBON DIOXIDE 23.7 mmol/L (22-30.0); CHLORIDE 108.8 mmol/L (98-107); CREATININE 0.21 mg/dL (0.60-1.30); POTASSIUM 4.07 mmol/L (3.5-5.1); SODIUM 136.5 mmol/L (134.5-145); TOTAL PROTEIN 5.81 g/dL (6.3-8.2)
[2022-05-11] MEDS: ROCEPHIN 1 GM/50 ML D5W 1 GM/50 ML BAG IV SCH (09:22)
[2022-05-11] MEDS: DEPAKOTE SPRINKLES PO SCH ×2 (09:22→20:11)
[2022-05-11] MEDS: MOTRIN SUSP UD PO SCH ×2 (09:23→20:10)
[2022-05-11] MEDS: FERROUS SULFATE PO SCH (09:23)
[2022-05-11] MEDS: MIRALAX PO SCH (09:25)
[2022-05-11] MEDS: VITAMIN D PO SCH (09:25)
[2022-05-12] MEDS: SODIUM CHLORIDE 1,000 ML IV SCH (02:53)
[2022-05-12] MEDS: TYLENOL/CODEINE ELIXIR 120/12 MG/5 ML PO PRN ×2 (07:21→16:40)
[2022-05-12] MEDS: VITAMIN D PO SCH (10:12)
[2022-05-12] MEDS: DEPAKOTE SPRINKLES PO SCH ×2 (10:15→20:26)
[2022-05-12] MEDS: MOTRIN SUSP UD PO SCH ×2 (10:18→20:27)
[2022-05-12] MEDS: ROCEPHIN 1 GM/50 ML D5W 1 GM/50 ML BAG IV SCH (10:19)
[2022-05-13] MEDS: TYLENOL/CODEINE ELIXIR 120/12 MG/5 ML PO PRN ×3 (02:41→20:21)
[2022-05-13] MEDS: MOTRIN SUSP UD PO SCH ×2 (08:47→20:21)
[2022-05-13] MEDS: ROCEPHIN 1 GM/50 ML D5W 1 GM/50 ML BAG IV SCH (08:47)
[2022-05-13] MEDS: DEPAKOTE SPRINKLES PO SCH ×2 (08:47→20:21)
[2022-05-13] MEDS: VITAMIN D PO SCH (08:48)
[2022-05-14] MEDS: TYLENOL/CODEINE ELIXIR 120/12 MG/5 ML PO PRN ×2 (05:53→14:27)
[2022-05-14 06:02] VITALS: BP 94/60; TEMP 97.1
[2022-05-14] MEDS: VITAMIN D PO SCH (08:53)
[2022-05-14] MEDS: MIRALAX PO SCH (08:53)
[2022-05-14] MEDS: DEPAKOTE SPRINKLES PO SCH (08:54)
[2022-05-14] MEDS: MOTRIN SUSP UD PO SCH (08:54)
[2022-05-14] MEDS: FERROUS SULFATE PO SCH (08:55)
--- NOTE | 2022-05-14 11:48 | PN ---
DATE OF SERVICE: 05/10/22 SUBJECTIVE: 46 year old white female hospitalized with sepsis and dehydration which seems to have resolved. The patient's new problem is metastatic liver disease. The patient has history of weight loss. The family doesn't want anything to be done. She has cerebral palsy. She will be on Hospice when she is discharged. The patient was seen and examined with the Nurse Practitioner. TIME SPENT: More than 30 minutes. Plan and coordination of the patient's care discussed in the presence of nurse. VARINDER
--- NOTE | 2022-05-14 12:55 | PN ---
DATE OF SERVICE: 05/11/22 SUBJECTIVE: 46 year old white female hospitalized with sepsis and dehydration. The patient is sleepy, somewhat tired. The appetite has not been up to par. Parents are sitting in the room. REVIEW OF SYSTEMS: CONSTITUTIONAL: No night sweats. No fatigue, malaise, lethargy. No fever or chills. HEENT: Eyes: No visual changes. No eye pain. No eye discharge. ENT: No runny nose. No epistaxis. No sinus pain. No sore throat. No odynophagia. No congestion. RESPIRATORY: No cough, no congestion. No hemoptysis. No shortness of breath. CARDIOVASCULAR: No angina symptoms. No CHF symptoms. No atypical chest pain for CAD. No palpitations. No PND. No orthopnea. GASTROINTESTINAL: No abdominal pain. No nausea or vomiting. No diarrhea or constipation. No hematemesis. No hematochezia. GENITOURINARY: No urgency. No frequency. No dysuria. No hematuria. No obstructive symptoms. No discharge. No pain. No significant abnormal bleeding. MUSCULOSKELETAL: No musculoskeletal pain; no joint swelling. NEUROLOGICAL: No headache. No neck pain. No syncope. No seizures. No dizziness. PSYCHIATRIC: Not anxious. No depression. No suicidal thoughts. No homicidal thoughts. SKIN: No rash. No lesions. No wounds. ENDOCRINE: No unexplained weight loss. No weight gain. HEMATOLOGIC/LYMPHATIC: No anemia. No purpura. No petechiae. No prolonged or excessive bleeding. No palpable lymph nodes. PHYSICAL EXAMINATION: VITAL SIGNS: Temperature 96.8, pulse 77, respiratory rate 18, blood pressure 100/60 and pulse ox 98% with 2 liters. HEENT: Head normocephalic, atraumatic. Eyes: Extraocular muscles are intact. Pupils are equal, round and reactive to light and accommodation. Ears: No lesions. Nose appeared normal. Throat: No exudate or erythema.Looks somewhat pale. NECK: Supple. No JVD, no carotid bruit. No lymphadenopathy or thyromegaly. LUNGS: Decreased breath sounds but clear to auscultation. Percussion note normal. Chest symmetrical. HEART: S1, S2, no S3. No murmurs. No cyanosis or clubbing. No ascites. Pulses: Dorsalis pedis and posterior tibial pulses +1 to +2 bilaterally. ABDOMEN: Soft. Nontender. Bowel sounds active. No CVA tenderness. No mass felt. EXTREMITIES: No edema. Full range of motion of all extremities, equal. Contractures present both lower and upper extremities. NEUROLOGIC: No focal deficit. Cranial nerves II through XII are grossly intact. No headache. No double vision. SKIN: Not dry. Intact. Turgor - normal. LYMPHATIC: No palpable lymph nodes/no lymphedema. MUSCULOSKELETAL: Normal joints with no swelling. Muscle tone is normal. LABS: Hgb 10, hct 31, WBC 13,000 normal differential, creatinine 0.2, BUN 7, potassium 3.7 ASSESSMENT: 1. Sepsis with dehydration seems to be under control. Skin turgor is a lot better. Kidney functions are normal 2. Cerebral palsy with the patient being bed ridden and has chronic lung disease with emaciation and malnutrition. 3. Liver METs with malignancy likely GI tract. Family doesn't want anything to be done in a way of any invasive procedures. The patient is for comfort care. She is going to be on Hospice once she is discharged. TIME SPENT: More than 30 minutes. Plan and coordination of the patient's care discussed in the presence of nurse. VARINDER
[2022-05-14] MEDS ORDERED: ZOFRAN 4 MG/2 ML IVP STA (13:14)
--- NOTE | 2022-05-14 13:20 | PN ---
DATE OF SERVICE: 05/12/22 SUBJECTIVE: 46 year old white female hospitalized with sepsis and dehydration. The patient's sepsis and dehydration seems to be under control. The patient's appetite today has seemed to have improved. The patient had a good breakfast. She is awake and talking. Mother is present in the room. REVIEW OF SYSTEMS: CONSTITUTIONAL: No night sweats. No fatigue, malaise, lethargy. No fever or chills. HEENT: Eyes: No visual changes. No eye pain. No eye discharge. ENT: No runny nose. No epistaxis. No sinus pain. No sore throat. No odynophagia. No congestion. RESPIRATORY: No cough, no congestion. No hemoptysis. No shortness of breath. CARDIOVASCULAR: No angina symptoms. No CHF symptoms. No atypical chest pain for CAD. No palpitations. No PND. No orthopnea. GASTROINTESTINAL: No abdominal pain. No nausea or vomiting. No diarrhea or constipation. No hematemesis. No hematochezia. Appetite for the time being seems to have improved. GENITOURINARY: No urgency. No frequency. No dysuria. No hematuria. No obstructive symptoms. No discharge. No pain. No significant abnormal bleeding. MUSCULOSKELETAL: No musculoskeletal pain; no joint swelling. NEUROLOGICAL: No headache. No neck pain. No syncope. No seizures. No dizziness. PSYCHIATRIC: Not anxious. No depression. No suicidal thoughts. No homicidal thoughts. SKIN: No rash. No lesions. No wounds. ENDOCRINE: No unexplained weight loss. No weight gain. HEMATOLOGIC/LYMPHATIC: No anemia. No purpura. No petechiae. No prolonged or excessive bleeding. No palpable lymph nodes. PHYSICAL EXAMINATION: VITAL SIGNS: Temperature 97, pulse 80, respiratory rate 18, blood pressure 90/54 and pulse ox 98%. HEENT: Head normocephalic, atraumatic. Eyes: Extraocular muscles are intact. Pupils are equal, round and reactive to light and accommodation. Ears: No lesions. Nose appeared normal. Throat: No exudate or erythema. NECK: Supple. No JVD, no carotid bruit. No lymphadenopathy or thyromegaly. LUNGS: Clear to auscultation. Percussion note normal. Chest symmetrical. HEART: S1, S2, no S3. No murmurs. No cyanosis or clubbing. No ascites. Pulses: Dorsalis pedis and posterior tibial pulses +1 to +2 bilaterally. ABDOMEN: Soft. Nontender. Bowel sounds active. No CVA tenderness. No mass felt. EXTREMITIES: No edema. Full range of motion of all extremities, equal. NEUROLOGIC: No focal deficit. Cranial nerves II through XII are grossly intact. No headache. No double vision. SKIN: Not dry. Intact. Turgor - normal. LYMPHATIC: No palpable lymph nodes/no lymphedema. MUSCULOSKELETAL: Normal joints with no swelling. Muscle tone is normal. LABS: Hgb 9.4, hct 30, WBC 9,300 normal differential, creatinine 0.2, BUN 6, potassium 4. ASSESSMENT: 1. Sepsis/dehydration seems to be under control 2. Cerebral palsy with malnutrition 3. 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 Do comfort care 2. Hospice once she is discharged 3. Continue antibiotics 4. Encourage the patient to eat. CONDITION: Stable. PROGNOSIS: Poor TIME SPENT: More than 30 minutes. Plan and coordination of the patient's care discussed in the presence of nurse. VARINDER
--- NOTE | 2022-05-14 13:27 | PN ---
DATE OF SERVICE: 05/13/22 SUBJECTIVE: 46 year old white female who has cerebral palsy hospitalized with sepsis, dehydration. The patient's sepsis and dehydration is under control. 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 The patient's family doesn't want anything to be done about it or further investigation. The patient is awake and talking. She had a good breakfast. Father and mother both of them happy. REVIEW OF SYSTEMS: CONSTITUTIONAL: No night sweats. No fatigue, malaise, lethargy. No fever or chills. HEENT: Eyes: No visual changes. No eye pain. No eye discharge. ENT: No runny nose. No epistaxis. No sinus pain. No sore throat. No odynophagia. No congestion. RESPIRATORY: No cough, no congestion. No hemoptysis. No shortness of breath. CARDIOVASCULAR: No angina symptoms. No CHF symptoms. No atypical chest pain for CAD. No palpitations. No PND. No orthopnea. GASTROINTESTINAL: No abdominal pain. No nausea or vomiting. No diarrhea or constipation. No hematemesis. No hematochezia. GENITOURINARY: No urgency. No frequency. No dysuria. No hematuria. No obstructive symptoms. No discharge. No pain. No significant abnormal bleeding. MUSCULOSKELETAL: No musculoskeletal pain; no joint swelling. NEUROLOGICAL: No headache. No neck pain. No syncope. No seizures. No dizziness. PSYCHIATRIC: Not anxious. No depression. No suicidal thoughts. No homicidal thoughts. SKIN: No rash. No lesions. No wounds. ENDOCRINE: No unexplained weight loss. No weight gain. HEMATOLOGIC/LYMPHATIC: No anemia. No purpura. No petechiae. No prolonged or excessive bleeding. No palpable lymph nodes. PHYSICAL EXAMINATION: VITAL SIGNS: Temperature 98, pulse 89, respiratory rate 18, blood pressure 114/68 and pulse ox 98% on room air. HEENT: Head normocephalic, atraumatic. Eyes: Extraocular muscles are intact. Pupils are equal, round and reactive to light and accommodation. Ears: No lesions. Nose appeared normal. Throat: No exudate or erythema. NECK: Supple. No JVD, no carotid bruit. No lymphadenopathy or thyromegaly. LUNGS: Decreased breath sounds but clear to auscultation. Percussion note normal. Chest symmetrical. HEART: S1, S2, no S3. No murmurs. No cyanosis or clubbing. No ascites. Pulses: Dorsalis pedis and posterior tibial pulses +1 to +2 bilaterally. ABDOMEN: Soft. Nontender. Bowel sounds active. No CVA tenderness. No mass felt. EXTREMITIES: No edema. Full range of motion of all extremities, equal. NEUROLOGIC: No focal deficit. Cranial nerves II through XII are grossly intact. No headache. No double vision. SKIN: Not dry. Intact. Turgor - normal. LYMPHATIC: No palpable lymph nodes/no lymphedema. MUSCULOSKELETAL: Normal joints with no swelling. Muscle tone is normal. LABS: Hgb 9.4, hct 30, WBC 9,300 normal differential. These labs were from 05/11/22. The patient's family has declined to have any further labs. ASSESSMENT: 1. Sepsis/dehydration under control 2. 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 3. Liver METS with primary likely from lower GI tract. PLAN: 1. Discharge the patient home likely tomorrow on antibiotics 2. She is strongly advised to eat. She repeats that is the only thing I tell her is just to eat. BMI is 11. 3. The patient is going to be very likely on Hospice. She is on comfort care. TIME SPENT: More than 30 minutes. Plan and coordination of the patient's care discussed in the presence of nurse. VARINDER
--- NOTE | 2022-05-21 11:39 | DS ---
DATE OF SERVICE: 05/14/22 FINAL DIAGNOSIS: 1. Sepsis likely could be from urosepsis 2. Dehydration 3. Liver METS likely from GI malignancy, source colon. 4. Cerebral palsy with bed ridden for number of years 5. Malnutrition 6. Contractures of upper and lower extremities. DISCHARGE INSTRUCTIONS: The patient is to be followed by Hospice also to see her in 5-7 days or to call the office for any other problems. Advised to continue all her medications like Depakote and all that for her convulsive disorder. MEDICATIONS AT DISCHARGE: Depakote Ipratropium-Albuterol nebulizer Polyethylene glycol for constipation NEW PRESCRIPTIONS: Ibuprofen 10cc PO Q 6 hours PRN Imodium A-D 1mg PO after loose stools PRN Acetaminophen-Codeine 5ml PO Q 6 hours PRN for pain Ondansetron 4mg PO Q 6 hours PRN LABS: 05/11/22 Hgb 9.4, hct 30, WBC 9,300 with normal differential, creatinine 0.2, BUN 6, potassium 4 HOSPITAL COURSE: 46 year old white female who is now known to have liver METS most likely from colon cancer has been hospitalized with deterioration of her medical status. The patient also was running fever. Blood cultures were positive for gram positive cocci. Sepsis was suspected with dehydration. The patient was given IV fluids. Rocephin was started. Her condition improved. Rocephin was continued for 6 days. At the time of discharge the patient was discharged on pain medications Acetaminophen with Codeine and Ibuprofen. The patient has had IV fluids during the stay in the hospital. Her hydration status has improved. Her mental status has improved. Family is very happy with her progress. After long discussion they have agreed to have patient on Hospice. Declined any further workup, no colonoscopy etc. She is not a candidate for it anyway. Cerebral palsy with contractures and her body weight now is 52 pounds with BMI 11, she is Cachetic. Also has history of convulsions which were fairly well controlled. This patient was discharged in stable condition. She will be discharged on Hospice. PROGNOSIS: Poor She is DNR. TIME SPENT: More than 60 minutes. [facility]
--- NOTE | 2022-05-21 11:40 | PN ---
05/08/22: Level 5 05/09/22: Intermediate 05/10/22: Intermediate 05/11/22: Intermediate 05/12/22: Intermediate 05/13/22: Intermediate 05/14/22: D as in discharge MTDD
--- NOTE | 2022-05-21 11:49 | PN ---
DATE OF SERVICE: 05/14/22 SUBJECTIVE: 46 year old white female hospitalized with sepsis, dehydration. The patient's sepsis and dehydration has resolved. She is looking much better. Had good breakfast this morning. The patient has liver METS with primarily from colon cancer. The patient has lost a lot of weigh lately. She weighs now 52 pounds, BMI is 11. The patient has cerebral palsy, bed ridden for a number of years. REVIEW OF SYSTEMS: CONSTITUTIONAL: No night sweats. No fatigue, malaise, lethargy. No fever or chills. HEENT: Eyes: No visual changes. No eye pain. No eye discharge. ENT: No runny nose. No epistaxis. No sinus pain. No sore throat. No odynophagia. No congestion. RESPIRATORY: No cough, no congestion. No hemoptysis. No shortness of breath. CARDIOVASCULAR: No angina symptoms. No CHF symptoms. No atypical chest pain for CAD. No palpitations. No PND. No orthopnea. GASTROINTESTINAL: No abdominal pain. No nausea . 1 vomitus before I had seen her and was given Zofran. No diarrhea or constipation. No hematemesis. No hematochezia. GENITOURINARY: No urgency. No frequency. No dysuria. No hematuria. No obstructive symptoms. No discharge. No pain. No significant abnormal bleeding. MUSCULOSKELETAL: No musculoskeletal pain; no joint swelling. NEUROLOGICAL: No headache. No neck pain. No syncope. No seizures. No dizziness. PSYCHIATRIC: Not anxious. No depression. No suicidal thoughts. No homicidal thoughts. SKIN: No rash. No lesions. No wounds. ENDOCRINE: No unexplained weight loss. No weight gain. HEMATOLOGIC/LYMPHATIC: No anemia. No purpura. No petechiae. No prolonged or excessive bleeding. No palpable lymph nodes. PHYSICAL EXAMINATION: VITAL SIGNS: Temperature 98, pulse 89, respiratory rate 18, blood pressure 114/68 and pulse ox 98%. HEENT: Head normocephalic, atraumatic. Eyes: Extraocular muscles are intact. Pupils are equal, round and reactive to light and accommodation. Ears: No lesions. Nose appeared normal. Throat: No exudate or erythema. NECK: Supple. No JVD, no carotid bruit. No lymphadenopathy or thyromegaly. LUNGS: Decreased breath sounds but clear to auscultation. Percussion note normal. Chest symmetrical. HEART: S1, S2, no S3. No murmurs. No cyanosis or clubbing. No ascites. Pulses: Dorsalis pedis and posterior tibial pulses +1 to +2 bilaterally. ABDOMEN: Soft. Nontender. Bowel sounds active. No CVA tenderness. No mass felt. EXTREMITIES: No edema. Full range of motion of all extremities, equal. Flexon, deformities. Emaciated. NEUROLOGIC: No focal deficit. Cranial nerves II through XII are grossly intact. No headache. No double vision. SKIN: Not dry. Intact. Turgor - normal. LYMPHATIC: No palpable lymph nodes/no lymphedema. MUSCULOSKELETAL: Normal joints with no swelling. Muscle tone is normal. LABS: Hgb 9.4, hct 30, WBC 9,300 normal differential, creatinine 0.2, BUN 6, potassium 4.0 this was on 05/11/22 three days ago. Family had declined any blood tests after that. ASSESSMENT: 1. Sepsis/dehydration resolved. Skin turgor a lot better. PLAN: 1. Discharge the patient home on Hospice. That was discussed in detail in earlier days of her hospitalization. 2. New medication is Acetaminophen- Codeine phosphate 120-12mg, 5cc every Q 6 hourly. It comes in [facility]. 3. The rest of the medication as before The patient has Ibuprofen for children at home. 4. The patient was on antibiotics now at least for 7 days and should be enough antibiotics for her infection. TIME SPENT: More than 30 minutes. Plan and coordination of the patient's care discussed in the presence of nurse. VARINDER
== END 2022-05-14 15:10 | disposition hospice, home (50) | DRG 872 ==
LOC: MEDSURG A 17:10
PROVIDERS: ADMIT Internal Medicine; ATTEND Internal Medicine